=== PATIENT | female | born 1945 | race Caucasian/White ===

== ENCOUNTER 2016-06-10 12:45 | Inpatient (IN) | payer OTHER ==
--- NOTE | 2016-06-10 12:51 | PDOC ---
History of Present Illness - General Chief Complaint: Cold Symptoms Stated Complaint: COUGH Time Seen by Provider: 06/10/16 12:51 History Source: Patient, Old Records Exam Limitations: No Limitations - History of Present Illness Initial Comments: 06/10/16 13:04 70-year-old female with history of hypertension, chronic venous stasis/venous insufficiency, COPDwith hypoxia in the past but refusing home oxygen per prior EMR, CHF (EF 30-40% on echo documented last year) presents to the emergency department from Dr. Omalley's office with shortness of breath, cough and hypoxia into the mid 70s in his office. I was told by Dr. Omalley that the patient had diffuse expiratory wheezes and was given an albuterol nebulizer treatment and felt increasingly more weak and therefore he sent her to the emergency department for further evaluation. The patient denies chest pain. The patient states that she has no prior use of any steroids and refuses to take any steroids for COPD in the past. She is a smoker approximately 4 cigarettes daily. She denies fevers and chills at home. Her cough is productive with white sputum. Past History - Past Medical History Allergies/Adverse Reactions: Allergies Allergy/AdvReac Type Severity Reaction Status Date / Time Penicillins Allergy Verified 06/10/16 13:14 Antibiotics (CAN TAKE Z-PACK) Allergy Pt states Uncoded 06/10/16 13:14 is sensitive to many antibiotics but can take zpak Home Medications: Ambulatory Orders Docusate Sodium [Colace -] 100 mg PO BID PRN #60 capsule 07/10/15 Furosemide [Lasix -] 20 mg PO Q2D #30 tablet 07/10/15 Lisinopril [Prinivil] 5 mg PO DAILY #30 tablet 07/10/15 - Surgical History Appendectomy: Yes - Psycho/Social/Smoking Cessation Hx Anxiety: No Suicidal Ideation: No Smoking History: Former smoker Have you smoked in the past 12 months: No Number of Cigarettes Smoked Daily: 7 'Breaking Loose' booklet given: 01/28/15 Hx Alcohol Use: No Drug/Substance Use Hx: No Substance Use Type: None Hx Substance Use Treatment: No Review of Systems - Review of Systems Able to Perform ROS?: Yes Is the patient limited Japanese proficient: No Constitutional: No: Symptoms Reported HEENTM: No: Symptoms Reported Respiratory: Yes: See HPI Cardiac (ROS): No: Symptoms Reported ABD/GI: No: Symptoms Reported : No: Symptoms Reported Musculoskeletal: No: Symptoms Reported Integumentary: No: Symptoms Reported Neurological: No: Symptoms reported *Physical Exam - Physical Exam Comments: 06/10/16 13:05 GENERAL: Well developed, well nourished. Awake and alert. No acute distress. HEENT: Normocephalic, atraumatic. PERRLA, EOMI. No conjunctival pallor. Sclera are non- icteric. Moist mucous membranes. Oropharynx is clear. NECK: Supple. Full ROM. No JVD. No lymphadenopathy. CARDIOVASCULAR: Regular rate and rhythm. No murmurs, rubs, or gallops. Distal pulses are 2+ and symmetric. PULMONARY: There is mild respiratory distress. The patient is able to speak in full sentences. There is fair air movement in all lung arellano with expiratory wheezes diffusely. There are no rales or rhonchi appreciated on physical exam. ABDOMINAL: Soft. Non-tender. Non-distended. No rebound or guarding. No organomegaly. Normoactive bowel sounds. MUSCULOSKELETAL Normal range of motion at all joints. No bony deformities or tenderness. No CVA tenderness. EXTREMITIES: No cyanosis. No clubbing. There is hyperpigmentation to the bilateral lower extremities with +1 bipedal edema. SKIN: Warm and dry. Normal capillary refill. No rashes. No jaundice. NEUROLOGICAL: Alert, awake, appropriate. Cranial nerves 2-12 intact. Grossly non_focal exam> PSYCHIATRIC: Cooperative. Good eye contact. Appropriate mood and affect. ED Treatment Course - LABORATORY CBC & Chemistry Diagram: 06/10/16 14:08 06/10/16 14:08 Medical Decision Making - Medical Decision Making 06/10/16 13:07 70-year-old female with history of hypertension, COPD, CHF with shortness of breath, cough and hypoxia on room air. Differential diagnosis includes but is not limited to: Pneumonia, COPD exacerbation, CHF exacerbation, anemia, electrolyte abnormality, ACS, toxic/metabolic derangement. Plan: 1. EKG 2. Chest x-ray 3. Labs 4. DuoNeb treatment 5. Patient refuses steroids. I've discussed the importance of steroid to the treatment of her COPD exacerbation which she continues to refuse. 6. The patient will likely require admission for COPD exacerbation in the setting of hypoxia 7. Observe and reevaluate 06/10/16 16:12 Addendum: The case was discussed with Dr. Omalley, the primary care physician. The plan is to admit the patient for COPD exacerbation. The patient consented to prednisone 40 mg by mouth 1. *DC/Admit/Observation/Transfer Diagnosis at time of Disposition: Shortness of breath, Hypoxia, COPD exacerbation - Discharge Dispostion Condition at time of disposition: Stable Admit: Yes
[2016-06-10] MEDS ORDERED: IPRATROPIUM BR 0.02% 0.5 MG/2.5 ML VIAL.NEB. NEB ONE ×3 (12:52→15:49)
[2016-06-10] MEDS ORDERED: ALBUTEROL SO4 0.083% IH SOL 2.5 MG/3 ML VIAL.NEB. NEB ONE ×5 (12:52→15:49)
[2016-06-10 14:31] LABS: BASOPHIL 0.4 % (0-2.0); EOSINOPHIL 0.4 % (0-4.5); MCH 30.6 pg (25.7-33.7); MCHC 32.8 g/dl (32.0-36.0); MEAN CELL VOLUME 93.2 fl (80-96); NEUTROPHILS 76.1 % (42.8-82.8); PLATELET COUNT 166 K/MM3 (134-434); RDW 13.8 % (11.6-15.6); WHITE BLOOD COUNT 6.8 K/mm3 (4.0-10.0)
[2016-06-10] MEDS ORDERED: predniSONE 20 MG TABLET (UD) PO ONE (15:12)
[2016-06-10 15:23] LABS: CALCIUM 8.8 mg/dl (8.4-10.2); PHOSPHOROUS 2.8 mg/dl (2.5-4.6)
[2016-06-10 15:42] LABS: TROPONIN I (DFP) 0.1 ng/ml (0.03-0.50)
[2016-06-10 15:47] LABS: CK MB 4.2 ng/ml (0.3-4.0)
[2016-06-10] MEDS ORDERED: predniSONE 20 MG TABLET (UD) ONE (15:49)
[2016-06-10] MEDS ORDERED: DOCUSATE SODIUM 100 MG CAPSULE (FP) PO PRN (16:34)
[2016-06-10] MEDS ORDERED: ACETAMINOPHEN 325 MG TABLET (FP) PO PRN (16:36)
[2016-06-10] MEDS ORDERED: ONDANSETRON 4 MG/2 ML VIAL IVPB PRN (16:36)
[2016-06-10 17:54] VITALS: BMI 21.4
[2016-06-10 18:00] LABS: ALBUMIN 3.7 g/dl (3.5-5.0); BILIRUBIN,DIRECT 0.2 mg/dl (0.0-0.2); BILIRUBIN,TOTAL 0.9 mg/dl (0.2-1.0); TOT PROT 6.7 g/dl (6.4-8.3)
[2016-06-10] MEDS: ALBUTEROL SO4 2.5/IPRATROPIUM 0.5 INH SOL 3 ML VIAL.NEB. NEB SCH (18:06)
--- NOTE | 2016-06-10 18:48 | EKG ---
Test Reason : Blood Pressure : / mmHG Vent. Rate : 101 BPM Atrial Rate : 101 BPM P-R Int : 148 ms QRS Dur : 082 ms QT Int : 400 ms P-R-T Axes : 085 046 042 degrees QTc Int : 518 ms POOR DATA QUALITY, INTERPRETATION MAY BE ADVERSELY AFFECTED SINUS TACHYCARDIA WITH OCCASIONAL PREMATURE VENTRICULAR COMPLEXES NONSPECIFIC ST AND T WAVE ABNORMALITY ABNORMAL ECG NO PREVIOUS ECGS AVAILABLE Confirmed by IZABEL FRAUSTO, FELIPE ([id number]) on 06/10/2016 6:48:26 PM Referred By: NABILA Confirmed By:FELIPE PAIZ MD
[2016-06-10 21:50] LABS: TROPONIN I (DFP) 0.06 ng/ml (0.03-0.50)
--- NOTE | 2016-06-10 22:21 | HP ---
CHIEF COMPLAINT: SOB, cough, hypoxia PCP: [facility] HISTORY OF PRESENT ILLNESS: This is a 70 year old female with a past medical history of HTN, chronic venous stasis/insufficiency, CHF, COPD with hypoxia who was sent to the ED from her PMD office with SOB, cough and hypoxia into 70s in PCP office. States her cough started 2-3 days ago. Pt reports feeling a little better, less SOB, but still feels "crappy." Denies any CP, N/V/D. ER course was notable for: (1) BNP 2608 (2) Trop 0.10 Recent Travel: pt denies PAST MEDICAL HISTORY: HTN chronic venous stasis/insufficiency CHF COPD with hypoxia but refuses home oxygen as per ED note PAST SURGICAL HISTORY: appendectomy age 18 Social History: Smokin-5 cig/day, started smoking age 17, used to smoke 1+ PPD Alcohol: pt denies Drugs: pt denies Family History: mother age 94, cancer, unknown type father age 55, alcoholic cirrhosis Allergies Penicillins Allergy (Verified 06/10/16 13:14) Antibiotics (CAN TAKE Z-PACK) Allergy (Uncoded 06/10/16 13:14) Pt states is sensitive to many antibiotics but can take zpak HOME MEDICATIONS: 3 Medication Instructions Recorded Docusate Sodium [Colace -] 100 mg PO BID PRN #60 capsule 07/10/15 Furosemide [Lasix -] 20 mg PO Q2D #30 tablet 07/10/15 Lisinopril [Prinivil] 5 mg PO DAILY #30 tablet 07/10/15 REVIEW OF SYSTEMS CONSTITUTIONAL: Absent: fever, chills, diaphoresis, generalized weakness, malaise, loss of appetite, weight change HEENT: Present: sore throat Absent: rhinorrhea, nasal congestion, throat pain, throat swelling, difficulty swallowing, mouth swelling, ear pain, eye pain, visual changes CARDIOVASCULAR: Absent: chest pain, syncope, palpitations, irregular heart rate, lightheadedness , peripheral edema RESPIRATORY: Present: cough, shortness of breath Absent: dyspnea with exertion, orthopnea, wheezing, stridor, hemoptysis GASTROINTESTINAL: Absent: abdominal pain, abdominal distension, nausea, vomiting, diarrhea, constipation, melena, hematochezia GENITOURINARY: Absent: dysuria, frequency, urgency, hesitancy, hematuria, flank pain, genital pain MUSCULOSKELETAL: Absent: myalgia, arthralgia, joint swelling, back pain, neck pain SKIN: Absent: rash, itching, pallor HEMATOLOGIC/IMMUNOLOGIC: Absent: easy bleeding, easy bruising, lymphadenopathy, frequent infections ENDOCRINE: Absent: unexplained weight gain, unexplained weight loss, heat intolerance, cold intolerance NEUROLOGIC: Absent: headache, focal weakness or paresthesias, dizziness, unsteady gait, seizure, mental status changes, bladder or bowel incontinence PSYCHIATRIC: Absent: anxiety, depression, suicidal or homicidal ideation, hallucinations. PHYSICAL EXAMINATION Vital Signs - 24 hr 3 06/10/16 06/10/16 06/10/16 12:45 13:00 14:26 Temperature 98.2 F 98.2 F Pulse Rate 104 H Pulse Rate [ 91 H Right] Respiratory 20 19 Rate Blood Pressure 140/63 Blood Pressure 134/65 [Left Arm] O2 Sat by Pulse 90 L 90 L 91 L Oximetry (%) 3 06/10/16 06/10/16 06/10/16 15:53 16:43 19:02 Temperature 98.2 F 98.2 F 99.3 F Pulse Rate 95 H Pulse Rate [ 94 H Right] Respiratory 21 21 20 Rate Blood Pressure 140/53 Blood Pressure 136/71 [Left Arm] O2 Sat by Pulse 91 L 90 L Oximetry (%) GENERAL: Awake, alert, and fully oriented, in no acute distress. HEAD: Normal with no signs of trauma. EYES: Pupils equal, round and reactive to light, extraocular movements intact, sclera anicteric, conjunctiva clear. No lid lag. EARS, NOSE, THROAT: Ears normal, nares patent, oropharynx clear without exudates. Moist mucous membranes. NECK: Normal range of motion, supple without lymphadenopathy, JVD, or masses. LUNGS: Breath sounds diminished, aidee bases. No active wheezing. HEART: Regular rate and rhythm, normal S1 and S2 without murmur, rub or gallop. ABDOMEN: Soft, nontender, not distended, normoactive bowel sounds, no guarding, no rebound, no masses. No hepatomegaly or splenomegaly. MUSCULOSKELETAL: Normal range of motion at all joints. No bony deformities or tenderness. No CVA tenderness. UPPER EXTREMITIES: 2+ pulses, warm, well-perfused. No cyanosis. No clubbing. Cap refill <2 seconds. No peripheral edema. LOWER EXTREMITIES: 2+ pulses, warm, well-perfused. No calf tenderness. 1+ edema b/l LE, + hemosiderin staining 1/2 way up lower legs, no acute erythema NEUROLOGICAL: Cranial nerves II-XII intact. Normal speech. Normal gait. PSYCHIATRIC: Cooperative. Good eye contact. Appropriate mood and affect. SKIN: Warm, dry, normal turgor, no rashes or lesions noted. Laboratory Results - last 24 hr 3 06/10/16 06/10/16 06/10/16 14:08 14:08 14:08 WBC 6.8 RBC 4.71 Hgb 14.4 Hct 43.9 MCV 93.2 MCHC 32.8 RDW 13.8 Plt Count 166 D MPV 8.0 Neutrophils % 76.1 D Lymphocytes % 15.3 D Monocytes % 7.8 Eosinophils % 0.4 Basophils % 0.4 Sodium 135 L Potassium 3.8 Chloride 96 L Carbon Dioxide 33 H Anion Gap 6 L BUN 14 Creatinine 1.0 Creat Clearance w eGFR Random Glucose 96 Calcium 8.8 Phosphorus 2.8 Magnesium 2.0 Total Bilirubin Direct Bilirubin AST ALT Alkaline Phosphatase Creatine Kinase 153 H CK-MB (CK-2) 4.2 H Troponin I 0.10 B-Natriuretic Peptide 2608.56 H Total Protein Albumin 3 06/10/16 06/10/16 14:40 20:45 WBC RBC Hgb Hct MCV MCHC RDW Plt Count MPV Neutrophils % Lymphocytes % Monocytes % Eosinophils % Basophils % Sodium Cancelled Potassium Cancelled Chloride Cancelled Carbon Dioxide Cancelled Anion Gap Cancelled BUN Cancelled Creatinine Cancelled Creat Clearance w eGFR Cancelled Random Glucose Cancelled Calcium Cancelled Phosphorus Magnesium Total Bilirubin 0.9 D Direct Bilirubin 0.2 AST 37 D ALT 18 D Alkaline Phosphatase 85 Creatine Kinase 176 H CK-MB (CK-2) 4.5 H Troponin I 0.06 B-Natriuretic Peptide Total Protein 6.7 Albumin 3.7 CXR: NO evidence of pulmonary infiltrates, vascular congestion, pleural effusion or pneumothorax. ECG: sinus tach rate 101, poor baseline, non specific ST and T wave abnormality ASSESSMENT/PLAN: 70yF with PMH HTN, chronic venous stasis/insufficiency, CHF, COPD with hypoxia who presented with cough, SOB, hypoxia. She is being admitted for COPD exacerbation COPD exacerbation - cont solumedrol 40mg Q8H - cont duonebs. hold tudorza while on duoneb - if no improvement would start zpak HTN/CHF - cont home medications, BP stable. - initial troponin 0.1, repeat 0.06, no further trending required as no symptoms of ACS other than SOB which is explained by COPD Chronic venous stasis - cont lasix QOD FEN - tolerating po fluids - BMP in am - low sodium diet as tolerated Dispo: pt currently requires inpatient monitoring. Visit type - Emergency Visit Emergency Visit: Yes ED Registration Date: 06/10/16 Care time: The patient presented to the Emergency Department on the above date and was hospitalized for further evaluation of their emergent condition. - New Patient This patient is new to me today: Yes Date on this admission: 06/10/16 - Critical Care Critical Care patient: No
[2016-06-10 22:22] LABS: CK MB 4.5 ng/ml (0.3-4.0)
[2016-06-11] MEDS: methylPREDNISolone NA SUCC 40 MG/1 ML VIAL IVPB SCH ×3 (02:00→17:20)
[2016-06-11 05:31] LABS: CALCIUM 8.1 mg/dL (8.5-10.1); CREATININE 0.9 mg/dL (0.55-1.02)
[2016-06-11 05:32] LABS: TROPONIN I 0.05 ng/ml (0.00-0.05)
[2016-06-11] MEDS: ALBUTEROL SO4 2.5/IPRATROPIUM 0.5 INH SOL 3 ML VIAL.NEB. NEB SCH ×2 (05:39)
--- NOTE | 2016-06-11 07:58 | PN ---
Physical Exam: SUBJECTIVE: Patient seen and examined. patient reports feeling slightly improved. patient is agitated, states, "I'm tired of being in the hospital". OBJECTIVE: patient is a 70 year old female with a past medical history of HTN, chronic venous stasis/insufficiency, CHF, COPD with hypoxia. patient was admitted from the emergency department for COPD excerbation. Vital Signs Period Temp Pulse Resp BP Sys/Maldonado Pulse Ox Last 24 Hr 98.0 F-99.3 F 88-95 18-20 108-140/53-62 90-93 GENERAL: The patient is awake, alert, and fully oriented, in no acute distress. HEAD: Normal with no signs of trauma. EYES: PERRL, extraocular movements intact, sclera anicteric, conjunctiva clear. No ptosis. ENT: Ears normal, nares patent, oropharynx clear without exudates, moist mucous membranes. NECK: Trachea midline, full range of motion, supple. LUNGS: Breath sounds equal, clear to auscultation bilaterally to apexes, diminished to bases, no wheezes, no crackles, no accessory muscle use. HEART: Regular rate and rhythm, S1, S2 without murmur, rub or gallop. ABDOMEN: Soft, nontender, nondistended, normoactive bowel sounds, no guarding, no rebound, no hepatosplenomegaly, no masses. EXTREMITIES: 2+ pulses, warm, well-perfused, billateral venous stasis, +1 billateral lower extremity edema (chronic as per patient) . NEUROLOGICAL: Cranial nerves II through XII grossly intact. Normal speech, gait not observed. PSYCH: agitated, normal affect. SKIN: Warm, dry, normal turgor, no rashes or lesions noted Laboratory Results - last 24 hr 06/10/16 06/11/16 06/11/16 20:45 04:00 04:00 Sodium 141 Potassium 4.6 Chloride 104 Carbon Dioxide 28 Anion Gap 9 BUN 14 Creatinine 0.9 Random Glucose 134 H Calcium 8.1 L Creatine Kinase 176 H 163 Cancelled CK-MB (CK-2) 4.5 H 2.813 Troponin I 0.06 0.05 Cancelled CBC WBC 6.5 K/mm3 (4.0-10.0) 06/11/16 08:30 RBC 4.23 M/mm3 (3.60-5.2) 06/11/16 08:30 Hgb 12.9 GM/dl (10.7-15.3) D 06/11/16 08:30 Hct 40.0 % (32.4-45.2) 06/11/16 08:30 MCV 94.7 fl (80-96) 06/11/16 08:30 MCHC 32.3 g/dl (32.0-36.0) 06/11/16 08:30 RDW 13.7 % (11.6-15.6) 06/11/16 08:30 Plt Count 152 K/MM3 (134-434) 06/11/16 08:30 MPV 8.4 fl (7.5-11.1) 06/11/16 08:30 Neutrophils % 89.0 % (42.8-82.8) H 06/11/16 08:30 Lymphocytes % 7.0 % (8-40) L D 06/11/16 08:30 Monocytes % 2.0 % (3.8-10.2) L 06/11/16 08:30 Eosinophils % 0.4 % (0-4.5) 06/10/16 14:08 Basophils % 0.4 % (0-2.0) 06/10/16 14:08 Band Neutrophils 2.0 % (0-10) 06/11/16 08:30 Active Medications Generic Name Dose Route Start Last Admin Trade Name Freq PRN Reason Stop Dose Admin Acetaminophen 650 mg 06/10/16 16:36 Tylenol - PO Q4H PRN FEVER OR PAIN Albuterol/Ipratropium 1 amp 06/10/16 18:00 06/11/16 05:39 Duoneb - NEB 1 amp QIDR [facility] Administration Docusate Sodium 100 mg 06/10/16 16:34 Colace - PO Q12H PRN CONSTIPATION Furosemide 20 mg 06/12/16 10:00 Lasix - PO Q2D ROSE Lisinopril 5 mg 06/11/16 10:00 Prinivil PO DAILY [facility] Methylprednisolone Sodium Succinate 40 mg 06/10/16 18:00 06/11/16 02:00 Solu-Medrol - IVPB 40 mg Q8H-IV ROSE Administration Metoprolol Succinate 25 mg 06/11/16 10:00 Toprol Xl - PO DAILY [facility] Ondansetron HCl 4 mg 06/10/16 16:36 Zofran Injection IVPB Q6H PRN NAUSEA IMAGING CXR: NO evidence of pulmonary infiltrates, vascular congestion, pleural effusion or pneumothorax. ECG: sinus tach rate 101, poor baseline, non specific ST and T wave abnormality ASSESSMENT/PLAN: 1) pulm:COPD exacerbation - continue solumedrol 40mg q8h - start symbicort, continue tudorza and duonebs prn - start zithromax - pt declines CT scan of Chest, although her last CT scan was 06/22, pt advised since she is a daily cigarette smoker a CT scan of chest is recommended to rule out malignancy, patient adamantly still declines CT scan - pt decline supplemental Oxygen 2) card - pt has a pmh of diastolic and systolic congestive heart failure, patient is euvolemic on exam, will continue with Lasix home dose - troponin x 3 wnl - continue lisinopril FEN - tolerating po fluids - BMP in am - low sodium diet as tolerated Dispo: pt currently requires inpatient monitoring. Visit type - Emergency Visit Emergency Visit: Yes ED Registration Date: 06/10/16 Care time: The patient presented to the Emergency Department on the above date and was hospitalized for further evaluation of their emergent condition. - New Patient This patient is new to me today: Yes Date on this admission: 06/11/16 - Critical Care Critical Care patient: No - Discharge Referral Referred to [facility] Med P.C.: No
--- NOTE | 2016-06-11 07:59 | PN ---
Physical Exam: SUBJECTIVE: Patient seen and examined OBJECTIVE: Vital Signs Period Temp Pulse Resp BP Sys/Maldonado Pulse Ox Last 24 Hr 98.0 F-99.3 F 88-95 18-20 108-140/53-62 90-93 GENERAL: The patient is awake, alert, and fully oriented, in no acute distress. HEAD: Normal with no signs of trauma. EYES: PERRL, extraocular movements intact, sclera anicteric, conjunctiva clear. No ptosis. ENT: Ears normal, nares patent, oropharynx clear without exudates, moist mucous membranes. NECK: Trachea midline, full range of motion, supple. LUNGS: Breath sounds equal, clear to auscultation bilaterally, no wheezes, no crackles, no accessory muscle use. HEART: Regular rate and rhythm, S1, S2 without murmur, rub or gallop. ABDOMEN: Soft, nontender, nondistended, normoactive bowel sounds, no guarding, no rebound, no hepatosplenomegaly, no masses. EXTREMITIES: 2+ pulses, warm, well-perfused, no edema. NEUROLOGICAL: Cranial nerves II through XII grossly intact. Normal speech, gait not observed. PSYCH: Normal mood, normal affect. SKIN: Warm, dry, normal turgor, no rashes or lesions noted Laboratory Results - last 24 hr 06/10/16 06/11/16 06/11/16 20:45 04:00 04:00 Sodium 141 Potassium 4.6 Chloride 104 Carbon Dioxide 28 Anion Gap 9 BUN 14 Creatinine 0.9 Random Glucose 134 H Calcium 8.1 L Creatine Kinase 176 H 163 Cancelled CK-MB (CK-2) 4.5 H 2.813 Troponin I 0.06 0.05 Cancelled Active Medications Generic Name Dose Route Start Last Admin Trade Name Freq PRN Reason Stop Dose Admin Acetaminophen 650 mg 06/10/16 16:36 Tylenol - PO Q4H PRN FEVER OR PAIN Albuterol/Ipratropium 1 amp 06/10/16 18:00 06/11/16 05:39 Duoneb - NEB 1 amp QIDR [facility] Administration Docusate Sodium 100 mg 06/10/16 16:34 Colace - PO Q12H PRN CONSTIPATION Furosemide 20 mg 06/12/16 10:00 Lasix - PO Q2D [facility] Lisinopril 5 mg 06/11/16 10:00 Prinivil PO DAILY [facility] Methylprednisolone Sodium Succinate 40 mg 06/10/16 18:00 06/11/16 02:00 Solu-Medrol - IVPB 40 mg Q8H-IV ROSE Administration Metoprolol Succinate 25 mg 06/11/16 10:00 Toprol Xl - PO DAILY [facility] Ondansetron HCl 4 mg 06/10/16 16:36 Zofran Injection IVPB Q6H PRN NAUSEA ASSESSMENT/PLAN:
[2016-06-11 09:02] LABS: MCH 30.6 pg (25.7-33.7); MCHC 32.3 g/dl (32.0-36.0); MEAN CELL VOLUME 94.7 fl (80-96); MEAN PLT VOLUME 8.4 fl (7.5-11.1); PLATELET COUNT 152 K/MM3 (134-434); RDW 13.7 % (11.6-15.6); WHITE BLOOD COUNT 6.5 K/mm3 (4.0-10.0)
[2016-06-11] MEDS: LISINOPRIL 5 MG TABLET (FP) PO SCH (09:30)
[2016-06-11] MEDS: METOPROLOL SUCCINATE 25 MG TAB.SR.24H (FP) PO SCH (09:30)
--- NOTE | 2016-06-11 11:44 | PN ---
Progress Note (short form) - Note Progress Note: PULMONARY CONSULTATION DICTATED 06/11/16 IMP ACUTE ON CHRONIC HYPOXEMIC RESPIRATORY FAILURE COPD EXACERBATION LV DYSFUNCTION HTN SMOKER PLAN IV STEROIDS INHALED BRONCHODILATORS SUPPLEMENTAL O2 ANTIBIOTICS CHEST CT PFTS OUTPATIENT DR LEMON Problem List - Problems (1) COPD exacerbation Code(s): J44.1 - CHRONIC OBSTRUCTIVE PULMONARY DISEASE W (ACUTE) EXACERBATION (2) Hypoxia Code(s): R09.02 - HYPOXEMIA (3) Shortness of breath Code(s): R06.02 - SHORTNESS OF BREATH (4) Edema Code(s): R60.9 - EDEMA, UNSPECIFIED (5) Lower extremity edema Code(s): R60.0 - LOCALIZED EDEMA Qualifiers: Laterality: bilateral Qualified Code(s): R60.0 - Localized edema (6) Acute on chronic respiratory failure with hypoxemia Code(s): J96.21 - ACUTE AND CHRONIC RESPIRATORY FAILURE WITH HYPOXIA (7) Congestive heart failure Code(s): I50.9 - HEART FAILURE, UNSPECIFIED (8) Tobacco abuse Code(s): Z72.0 - TOBACCO USE (9) Tobacco abuse counseling Code(s): Z71.6 - TOBACCO ABUSE COUNSELING
[2016-06-11] MEDS ORDERED: AZITHROMYCIN IVPB 250 ML IVPB ONE (12:15)
[2016-06-11] MEDS ORDERED: ZOLPIDEM TARTRATE 5 MG TABLET PO PRN (12:29)
[2016-06-11] MEDS: ACLIDINIUM BROMIDE 400 MCG/INH AERO.POWD IH SCH ×2 (13:00→21:59)
[2016-06-11] MEDS: ALBUTEROL SO4 2.5/IPRATROPIUM 0.5 INH SOL 3 ML VIAL.NEB. NEB PRN (13:00)
[2016-06-11] MEDS: BUDESONIDE/FORMETEROL FUMARATE 160/4.5 mcg INHALER IH SCH ×2 (13:00→21:59)
[2016-06-11 13:44] LABS: MAGNESIUM 2.1 mg/dL (1.8-2.4)
[2016-06-11 13:54] LABS: PH,URINE 5.5 (4.5-8); URINE APPEARANCE Clear; URINE BILIRUBIN Negative (NEGATIVE); URINE GLUCOSE (UA) Negative (NEGATIVE); URINE KETONE Negative (NEGATIVE); URINE LEUK ESTERASE Negative (NEGATIVE); URINE NITRITE Negative (NEGATIVE); URINE PROTEIN Negative (NEGATIVE); URINE UROBILINOGEN 0.2 E.U/dl (0.2-1.0)
[2016-06-11 14:05] LABS: URINE BLOOD TRACE (NEGATIVE); URINE COLOR YELLOW
[2016-06-11] MEDS ORDERED: PT OWN MED DRAWER 7, Y5N ONE ×3 (14:46→21:20)
[2016-06-11] MEDS: NICOTINE 14 MG/24 HOURS TOPICAL PATCH TD SCH (14:51)
--- NOTE | 2016-06-11 14:55 | CONS ---
PULMONARY CONSULTATION DATE OF CONSULTATION: 06/11/2016 REFERRING PHYSICIAN: Frida Howard NP HISTORY OF PRESENT ILLNESS: The patient is a 70-year-old white female with a past medical history of advanced COPD with chronic hypoxia and refusing home O2, a longstanding history of tobacco use currently still smoking, hypertension, chronic venous stasis, venous insufficiency, congestive heart failure with an ejection fraction of 30% to 40% on echo, admitted to [facility] with hypoxemia. For the past few days or so, the patient had apparently started noticing increasing shortness of breath, cough and chest congestion. She went to 's office and was noted in the office to have an O2 saturation in the mid-70s. At that time, she was advised to go to the emergency room. In the ER, she was noted to have diffuse bilateral wheezing and shortness of breath. She was started on inhaled bronchodilators and IV steroids with clinical improvement and transferred out to the medical floor for further management. She denies any fevers, weight loss, night sweats, nausea or hemoptysis. She denies any chest pain or palpitations. She denies any history of occupational exposure to chemicals or fumes. As noted earlier, she has a history of chronic hypoxemia and has refused supplemental O2. PAST MEDICAL HISTORY: Advanced COPD, hypertension, chronic venous stasis, venous insufficiency, CHF, left ventricular dysfunction. REVIEW OF SYSTEMS: Positive for shortness of breath, positive cough. No sputum. No fever. No chills. No hemoptysis. Positive for wheezing. Positive for lower extremity edema. MEDICATIONS PRIOR TO ADMISSION: Colace, Lasix and Prinivil. PHYSICAL EXAMINATION: General: The patient is a well-developed, well-nourished female, awake and alert, mildly dyspneic but in no acute distress. Vital Signs: O2 saturation is 88% on room air at rest. Respiratory rate is 18, blood pressure is 108/62, temperature is 98 and heart rate is 90. HEENT: Head is normocephalic, atraumatic. Neck: Supple. Heart: Regular. Normal S1, S2. Chest: Scattered bilateral wheezes. Abdomen: Soft. Bowel sounds positive. Extremities: Bilateral lower extremity edema. LABORATORY DATA: BUN is 14, creatinine 0.9. WBC is 6.5, hemoglobin 12.9, hematocrit 40, platelet count of 152,000. BNP is slightly elevated at 2608. Chest x-ray reveals no infiltrates and no effusions. IMPRESSION: 1. [id number] hypoxemic respiratory failure secondary to decompensated chronic obstructive pulmonary disease. 2. history of congestive heart failure. 3. Hypertension. PLAN: 1. IV steroids, inhaled bronchodilators, antibiotic therapy, supplemental O2. 2. Obtain echocardiogram if one has not been done already. 3. Pulmonary function tests as an outpatient. 4. Low-dose CAT scan since the patient has a longstanding history of tobacco abuse; rule out underlying malignancy and underlying pulmonary nodules as well as possible underlying pneumonia. JEAN-PAUL LEMON M.D. [id number] MTDD
[2016-06-11] MEDS: MINERAL OIL/PETROLAT/WATER TOPICAL CREAM 113 GM JAR TP SCH ×2 (16:00→22:00)
[2016-06-12] MEDS: methylPREDNISolone NA SUCC 40 MG/1 ML VIAL IVPB SCH ×4 (01:34→18:33)
[2016-06-12 08:16] LABS: BASOPHIL 0.2 % (0-2.0); MCH 30.8 pg (25.7-33.7); MCHC 32.5 g/dl (32.0-36.0); MEAN CELL VOLUME 94.8 fl (80-96); MEAN PLT VOLUME 8.5 fl (7.5-11.1); NEUTROPHILS 90.9 % (42.8-82.8); PLATELET COUNT 176 K/MM3 (134-434); RDW 13.5 % (11.6-15.6); WHITE BLOOD COUNT 12.5 K/mm3 (4.0-10.0)
[2016-06-12 08:33] LABS: ALBUMIN 3.4 g/dl (3.5-5.0); BILIRUBIN,TOTAL 0.7 mg/dl (0.2-1.0); CALCIUM 9.1 mg/dl (8.4-10.2); MAGNESIUM 2.1 mg/dL (1.8-2.4); TOT PROT 6.1 g/dl (6.4-8.3)
[2016-06-12] MEDS ORDERED: PT OWN MED DRAWER 7, Y5N ONE ×2 (09:22→20:57)
[2016-06-12] MEDS: MINERAL OIL/PETROLAT/WATER TOPICAL CREAM 113 GM JAR TP SCH ×2 (09:44→21:52)
[2016-06-12] MEDS: FUROSEMIDE 20 MG TABLET (FP) PO SCH (09:44)
[2016-06-12] MEDS: NICOTINE 14 MG/24 HOURS TOPICAL PATCH TD SCH (09:44)
[2016-06-12] MEDS: LISINOPRIL 5 MG TABLET (FP) PO SCH (09:44)
[2016-06-12] MEDS: BUDESONIDE/FORMETEROL FUMARATE 160/4.5 mcg INHALER IH SCH ×2 (09:45→21:51)
[2016-06-12] MEDS: METOPROLOL SUCCINATE 25 MG TAB.SR.24H (FP) PO SCH (09:45)
[2016-06-12] MEDS: ACLIDINIUM BROMIDE 400 MCG/INH AERO.POWD IH SCH ×2 (09:45→21:49)
[2016-06-12] MEDS: AZITHROMYCIN IVPB 250 MG in DEXTROSE 5%-WATER - 250 ML IVPB SCH (09:45)
--- NOTE | 2016-06-12 10:28 | PN ---
Progress Note, Physician History of Present Illness: PULMONARY ALERT,LESS DYSPNEIC,BUT STILL NOT FEELING WELL - Current Medication List Current Medications: Active Medications Acetaminophen (Tylenol -) 650 mg PO Q4H PRN PRN Reason: FEVER OR PAIN Aclidinium [place] (Tudorza -) 1 puff IH BID [facility] Last Admin: 06/12/16 09:45 Dose: 1 puff Albuterol/Ipratropium (Duoneb -) 1 amp NEB QIDR PRN PRN Reason: COUGH Last Admin: 06/11/16 13:00 Dose: 1 amp Budesonide/Formoterol Fumarate (Symbicort 160/4.5mcg -) 2 puff IH BID [facility] Last Admin: 06/12/16 09:45 Dose: 2 puff Docusate Sodium (Colace -) 100 mg PO Q12H PRN PRN Reason: CONSTIPATION Furosemide (Lasix -) 20 mg PO Q2D [facility] Last Admin: 06/12/16 09:44 Dose: 20 mg Azithromycin 250 mg/ Dextrose 250 mls @ 250 mls/hr IVPB DAILY [facility] Stop: 06/15/16 10:00 Last Admin: 06/12/16 09:45 Dose: 250 mls/hr Lisinopril (Prinivil) 5 mg PO DAILY [facility] Last Admin: 06/12/16 09:44 Dose: 5 mg Methylprednisolone Sodium Succinate (Solu-Medrol -) 40 mg IVPB Q8H-IV [facility] Last Admin: 06/12/16 09:44 Dose: 40 mg Metoprolol Succinate (Toprol Xl -) 25 mg PO DAILY [facility] Last Admin: 06/12/16 09:45 Dose: 25 mg Multi-Ingredient Lotion (Eucerin (Small Jar) -) 1 applic TP BID [facility] Last Admin: 06/12/16 09:44 Dose: 1 applic Nicotine (Nicoderm Patch -) 14 mg TD DAILY [facility] Last Admin: 06/12/16 09:44 Dose: 14 mg Ondansetron HCl (Zofran Injection) 4 mg IVPB Q6H PRN PRN Reason: NAUSEA Zolpidem Tartrate (Ambien -) 5 mg PO HS PRN PRN Reason: INSOMNIA - Objective Vital Signs: Vital Signs Temperature 98 F 06/12/16 08:27 Pulse Rate 95 H 06/12/16 08:27 Respiratory Rate 18 06/12/16 08:28 Blood Pressure 169/84 06/12/16 08:27 O2 Sat by Pulse Oximetry (%) 93 L 06/12/16 08:28 Constitutional: Yes: Well Nourished, Calm Eyes: Yes: WNL HENT: Yes: WNL Neck: Yes: WNL Cardiovascular: Yes: Regular Rate and Rhythm, S1, S2 Respiratory: Yes: Rales, Wheezes (FEW CRACKLES AND WHEEZES) Gastrointestinal: Yes: Normal Bowel Sounds, Soft Extremities: Yes: WNL Edema: No Labs: CBC, BMP 06/12/16 07:00 06/12/16 07:00 Problem List - Problems (1) COPD exacerbation Code(s): J44.1 - CHRONIC OBSTRUCTIVE PULMONARY DISEASE W (ACUTE) EXACERBATION (2) Hypoxia Code(s): R09.02 - HYPOXEMIA (3) Shortness of breath Code(s): R06.02 - SHORTNESS OF BREATH (4) Edema Code(s): R60.9 - EDEMA, UNSPECIFIED (5) Lower extremity edema Code(s): R60.0 - LOCALIZED EDEMA Qualifiers: Laterality: bilateral Qualified Code(s): R60.0 - Localized edema (6) Acute on chronic respiratory failure with hypoxemia Code(s): J96.21 - ACUTE AND CHRONIC RESPIRATORY FAILURE WITH HYPOXIA (7) Congestive heart failure Code(s): I50.9 - HEART FAILURE, UNSPECIFIED (8) Tobacco abuse Code(s): Z72.0 - TOBACCO USE (9) Tobacco abuse counseling Code(s): Z71.6 - TOBACCO ABUSE COUNSELING Assessment/Plan IMP ACUTE ON CHRONIC HYPOXEMIC RESPIRATORY FAILURE COPD EXACERBATION LV DYSFUNCTION HTN SMOKER PLAN CONTINUE IV STEROIDS INHALED BRONCHODILATORS SUPPLEMENTAL O2 ANTIBIOTICS CHEST CT PFTS OUTPATIENT DR LEMON Problem List - Problems (1) COPD exacerbation Code(s): J44.1 - CHRONIC OBSTRUCTIVE PULMONARY DISEASE W (ACUTE) EXACERBATION (2) Hypoxia Code(s): R09.02 - HYPOXEMIA (3) Shortness of breath Code(s): R06.02 - SHORTNESS OF BREATH (4) Edema Code(s): R60.9 - EDEMA, UNSPECIFIED (5) Lower extremity edema Code(s): R60.0 - LOCALIZED EDEMA Qualifiers: Laterality: bilateral Qualified Code(s): R60.0 - Localized edema (6) Acute on chronic respiratory failure with hypoxemia Code(s): J96.21 - ACUTE AND CHRONIC RESPIRATORY FAILURE WITH HYPOXIA (7) Congestive heart failure Code(s): I50.9 - HEART FAILURE, UNSPECIFIED (8) Tobacco abuse Code(s): Z72.0 - TOBACCO USE (9) Tobacco abuse counseling Code(s): Z71.6 - TOBACCO ABUSE COUNSELING
--- NOTE | 2016-06-12 14:33 | PN ---
Physical Exam: SUBJECTIVE: Patient seen and examined, patient reports feeling the same, does reports less cough, pt denies any chest pain. OBJECTIVE: patient is a 70 year old female with a past medical history of HTN, chronic venous stasis/insufficiency, CHF, COPD with hypoxia. patient was admitted from the emergency department for COPD excerbation. Vital Signs Period Temp Pulse Resp BP Sys/[place] Pulse Ox Last 24 Hr 98 F-98.3 F 69-102 18-20 123-169/52-84 90-93 GENERAL: The patient is awake, alert, and fully oriented, in no acute distress. HEAD: Normal with no signs of trauma. EYES: PERRL, extraocular movements intact, sclera anicteric, conjunctiva clear. No ptosis. ENT: Ears normal, nares patent, oropharynx clear without exudates, moist mucous membranes. NECK: Trachea midline, full range of motion, supple. LUNGS: Breath sounds equal, clear to auscultation bilaterally to apexes, diminished to bases, no wheezes, no crackles, no accessory muscle use, moist cough noted HEART: Regular rate and rhythm, S1, S2 without murmur, rub or gallop. ABDOMEN: Soft, nontender, nondistended, normoactive bowel sounds, no guarding, no rebound, no hepatosplenomegaly, no masses. EXTREMITIES: 2+ pulses, warm, well-perfused, billateral venous stasis, +1 billateral lower extremity edema (chronic as per patient) . NEUROLOGICAL: Cranial nerves II through XII grossly intact. Normal speech, gait not observed. PSYCH: calm, normal affect. SKIN: Warm, dry, normal turgor, no rashes or lesions noted Laboratory Results - last 24 hr 06/12/16 06/12/16 07:00 07:00 WBC 12.5 H D RBC 4.48 Hgb 13.8 Hct 42.4 MCV 94.8 MCHC 32.5 RDW 13.5 Plt Count 176 MPV 8.5 Neutrophils % 90.9 H Lymphocytes % 6.5 L Monocytes % 2.4 L Eosinophils % 0.0 D Basophils % 0.2 Sodium 137 Potassium 4.7 D Chloride 102 Carbon Dioxide 31 H Anion Gap 4 L BUN 18 D Creatinine 1.0 Creat Clearance w eGFR 55.14 Random Glucose 128 H D Calcium 9.1 Magnesium 2.1 Total Bilirubin 0.7 D AST 40 ALT 18 Alkaline Phosphatase 70 Total Protein 6.1 L Albumin 3.4 L Active Medications Generic Name Dose Route Start Last Admin Trade Name Freq PRN Reason Stop Dose Admin Acetaminophen 650 mg 06/10/16 16:36 Tylenol - PO Q4H PRN FEVER OR PAIN Aclidinium [place] 1 puff 06/11/16 12:00 06/12/16 09:45 Tudorza - IH 1 puff BID [facility] Administration Albuterol/Ipratropium 1 amp 06/11/16 12:51 06/11/16 13:00 Duoneb - NEB 1 amp QIDR PRN Administration COUGH Budesonide/Formoterol Fumarate 2 puff 06/11/16 12:00 06/12/16 09:45 Symbicort 160/4.5mcg - IH 2 puff BID [facility] Administration Docusate Sodium 100 mg 06/10/16 16:34 Colace - PO Q12H PRN CONSTIPATION Furosemide 20 mg 06/12/16 10:00 06/12/16 09:44 Lasix - PO 20 mg Q2D [facility] Administration Azithromycin 250 mg/ Dextrose 250 mls @ 250 mls/hr 06/12/16 10:00 06/12/16 09: 45 IVPB 06/15/16 10:00 250 mls/hr DAILY [facility] Administration Lisinopril 5 mg 06/11/16 10:00 06/12/16 09:44 Prinivil PO 5 mg DAILY [facility] Administration Methylprednisolone Sodium Succinate 40 mg 06/10/16 18:00 06/12/16 09:44 Solu-Medrol - IVPB 40 mg Q8H-IV [facility] Administration Metoprolol Succinate 25 mg 06/11/16 10:00 06/12/16 09:45 Toprol Xl - PO 25 mg DAILY [facility] Administration Multi-Ingredient Lotion 1 applic 06/11/16 13:00 06/12/16 09:44 Eucerin (Small Jar) - TP 1 applic BID [facility] Administration Nicotine 14 mg 06/11/16 12:15 06/12/16 09:44 Nicoderm Patch - TD 14 mg DAILY [facility] Administration Ondansetron HCl 4 mg 06/10/16 16:36 Zofran Injection IVPB Q6H PRN NAUSEA Zolpidem Tartrate 5 mg 06/11/16 12:29 Ambien - PO HS PRN INSOMNIA IMAGING CXR: NO evidence of pulmonary infiltrates, vascular congestion, pleural effusion or pneumothorax. ECG: sinus tach rate 101, poor baseline, non specific ST and T wave abnormality ASSESSMENT/PLAN: 1) pulm:COPD exacerbation - continue solumedrol 40mg q8h - start symbicort, continue tudorza and duonebs prn - continue zithromax - pt declines CT scan of Chest, although her last CT scan was 06/22, pt advised since she is a daily cigarette smoker a CT scan of chest is recommended to rule out malignancy, patient adamantly still declines CT scan - pt declines supplemental Oxygen 2) card - pt has a pmh of diastolic and systolic congestive heart failure, patient remains euvolemic on exam, will continue with Lasix home dose - continue lisinopril and toprol FEN - tolerating po fluids - BMP in am - low sodium diet as tolerated Dispo: pt currently requires inpatient monitoring. Visit type - Emergency Visit Emergency Visit: Yes ED Registration Date: 06/10/16 Care time: The patient presented to the Emergency Department on the above date and was hospitalized for further evaluation of their emergent condition. - New Patient This patient is new to me today: No - Critical Care Critical Care patient: No - Discharge Referral Referred to [facility] Med P.C.: Yes Physician Referral: Sohail Thomas MD (Int Med)
[2016-06-13] MEDS: methylPREDNISolone NA SUCC 40 MG/1 ML VIAL IVPB SCH ×4 (01:23→21:19)
[2016-06-13] MEDS: ALBUTEROL SO4 2.5/IPRATROPIUM 0.5 INH SOL 3 ML VIAL.NEB. NEB PRN (06:00)
[2016-06-13 08:05] LABS: CALCIUM 9.3 mg/dl (8.4-10.2)
[2016-06-13 08:11] LABS: MCH 30.8 pg (25.7-33.7); MCHC 32.5 g/dl (32.0-36.0); MEAN PLT VOLUME 8.7 fl (7.5-11.1); PLATELET COUNT 193 K/MM3 (134-434)
[2016-06-13 09:17] LABS: PLATELET ESTIMATE NORMAL (NORMAL)
[2016-06-13] MEDS ORDERED: PT OWN MED DRAWER 7, Y5N ONE ×2 (09:17→21:13)
[2016-06-13] MEDS: ACLIDINIUM BROMIDE 400 MCG/INH AERO.POWD IH SCH ×2 (09:31→21:18)
[2016-06-13] MEDS: METOPROLOL SUCCINATE 25 MG TAB.SR.24H (FP) PO SCH (09:31)
[2016-06-13] MEDS: LISINOPRIL 5 MG TABLET (FP) PO SCH (09:31)
[2016-06-13] MEDS: BUDESONIDE/FORMETEROL FUMARATE 160/4.5 mcg INHALER IH SCH ×2 (09:32→21:19)
[2016-06-13] MEDS: MINERAL OIL/PETROLAT/WATER TOPICAL CREAM 113 GM JAR TP SCH ×2 (09:32→21:19)
[2016-06-13] MEDS: NICOTINE 14 MG/24 HOURS TOPICAL PATCH TD SCH (09:32)
[2016-06-13] MEDS ORDERED: REFRIGERATED ANITBIOTICS ONE (09:37)
[2016-06-13] MEDS: AZITHROMYCIN IVPB 250 MG in DEXTROSE 5%-WATER - 250 ML IVPB SCH (09:46)
--- NOTE | 2016-06-13 10:35 | PN ---
Physical Exam: SUBJECTIVE: Patient seen and examined. Refused one dose of IV steroids yesterday at 6pm, but took 2am and 10am doses today. Refuses oxygen. Recommended to have CT chest but pt declined, saying she is not up to it. but daughter came in later and convinced mother to have CT. Same ordered. States she isn't feeling any better, still feeling lousy. States her breathing is the same. OBJECTIVE: Vital Signs - 24 hr 3 06/12/16 06/12/16 06/12/16 15:11 15:12 20:23 Temperature 98 F Pulse Rate 94 H 95 H Respiratory 18 18 Rate Blood Pressure 141/79 O2 Sat by Pulse 92 L 92 L Oximetry (%) 3 06/12/16 06/13/16 06/13/16 22:10 04:00 06:44 Temperature 98.6 F 98.0 F Pulse Rate 87 71 Respiratory 16 18 Rate Blood Pressure 173/80 148/67 O2 Sat by Pulse 90 L 88 L Oximetry (%) GENERAL: The patient is awake, alert, and fully oriented, in no acute distress. HEAD: Normal with no signs of trauma. EYES: PERRL, extraocular movements intact, sclera anicteric, conjunctiva clear. No ptosis. ENT: Ears normal, nares patent, oropharynx clear without exudates, moist mucous membranes. NECK: Trachea midline, full range of motion, supple. LUNGS: scattered expiratory wheeze and diminished BS lower lung arellano. Clear upper. no rhonchi HEART: Regular rate and rhythm, S1, S2 without murmur, rub or gallop. ABDOMEN: Soft, nontender, nondistended, normoactive bowel sounds, no guarding, no rebound, no hepatosplenomegaly, no masses. EXTREMITIES: 2+ pulses, warm, well-perfused, no edema. NEUROLOGICAL: Cranial nerves II through XII grossly intact. Normal speech, gait not observed. PSYCH: Normal mood, normal affect. SKIN: Warm, dry, normal turgor, no rashes or lesions noted Laboratory Results - last 24 hr 3 06/13/16 06/13/16 07:00 07:00 WBC 12.0 H RBC 4.75 Hgb 14.6 Hct 45.1 MCV 95.0 MCHC 32.5 RDW 14.0 Plt Count 193 MPV 8.7 Neutrophils % 89.0 H Lymphocytes % 7.0 L Monocytes % 2.0 L Band Neutrophils 2.0 Platelet Estimate Normal Sodium 138 Potassium 4.2 Chloride 99 Carbon Dioxide 33 H Anion Gap 6 L BUN 25 H D Creatinine 1.0 Random Glucose 115 H Calcium 9.3 Active Medications 3 Generic Name Dose Route Start Last Admin Trade Name Freq PRN Reason Stop Dose Admin Acetaminophen 650 mg 06/10/16 16:36 Tylenol - PO Q4H PRN FEVER OR PAIN Aclidinium [place] 1 puff 06/11/16 12:00 06/13/16 09:31 Tudorza - IH 1 puff BID [facility] Administration Albuterol/Ipratropium 1 amp 06/11/16 12:51 06/13/16 06:00 Duoneb - NEB 1 amp QIDR PRN Administration COUGH Budesonide/Formoterol Fumarate 2 puff 06/11/16 12:00 06/13/16 09:32 Symbicort 160/4.5mcg - IH Not Given BID [facility] Docusate Sodium 100 mg 06/10/16 16:34 Colace - PO Q12H PRN CONSTIPATION Furosemide 20 mg 06/12/16 10:00 06/12/16 09:44 Lasix - PO 20 mg Q2D [facility] Administration Azithromycin 250 mg/ Dextrose 250 mls @ 250 mls/hr 06/12/16 10:00 06/13/16 09: 46 IVPB 06/15/16 10:00 250 mls/hr DAILY [facility] Administration Lisinopril 5 mg 06/11/16 10:00 06/13/16 09:31 Prinivil PO 5 mg DAILY [facility] Administration Methylprednisolone Sodium Succinate 40 mg 06/10/16 18:00 06/13/16 09:33 Solu-Medrol - IVPB 40 mg Q8H-IV [facility] Administration Metoprolol Succinate 25 mg 06/11/16 10:00 06/13/16 09:31 Toprol Xl - PO 25 mg DAILY [facility] Administration Multi-Ingredient Lotion 1 applic 06/11/16 13:00 06/13/16 09:32 Eucerin (Small Jar) - TP 1 applic BID [facility] Administration Nicotine 14 mg 06/11/16 12:15 06/13/16 09:32 Nicoderm Patch - TD Not Given DAILY [facility] Ondansetron HCl 4 mg 06/10/16 16:36 Zofran Injection IVPB Q6H PRN NAUSEA Zolpidem Tartrate 5 mg 06/11/16 12:29 Ambien - PO HS PRN INSOMNIA ASSESSMENT/PLAN: 70yF with PMH HTN, chronic venous stasis/insufficiency, cellulitis, CHF, COPD with hypoxia who presented with cough, SOB, hypoxia. She has been admitted for COPD exacerbation. COPD exacerbation - ok to decrease solumedrol to q12h as wheezing improved - cont duonebs. hold tudorza while on duoneb - cont zithromax - agrees to CT of chest - declining oxygen HTN/CHF - cont home medications, BP stable, euvolemic Chronic venous stasis - cont lasix QOD FEN - tolerating po fluids - BMP in am - low sodium diet as tolerated Dispo: pt currently requires inpatient monitoring. Visit type - Emergency Visit Emergency Visit: Yes ED Registration Date: 06/10/16 Care time: The patient presented to the Emergency Department on the above date and was hospitalized for further evaluation of their emergent condition. - New Patient This patient is new to me today: No - Critical Care Critical Care patient: No
[2016-06-14 07:08] LABS: BASOPHIL 0.1 % (0-2.0); MCH 31.2 pg (25.7-33.7); MCHC 32.6 g/dl (32.0-36.0); MEAN CELL VOLUME 95.8 fl (80-96); MEAN PLT VOLUME 8.9 fl (7.5-11.1); NEUTROPHILS 87.7 % (42.8-82.8); PLATELET COUNT 205 K/MM3 (134-434); RDW 14.4 % (11.6-15.6); WHITE BLOOD COUNT 11.3 K/mm3 (4.0-10.0)
[2016-06-14 07:36] LABS: CALCIUM 8.7 mg/dL (8.5-10.1)
[2016-06-14] MEDS ORDERED: PT OWN MED DRAWER 7, Y5N ONE ×2 (09:38→22:05)
[2016-06-14] MEDS: BUDESONIDE/FORMETEROL FUMARATE 160/4.5 mcg INHALER IH SCH ×2 (09:49→22:10)
[2016-06-14] MEDS: ACLIDINIUM BROMIDE 400 MCG/INH AERO.POWD IH SCH ×2 (09:49→22:10)
[2016-06-14] MEDS: FUROSEMIDE 20 MG TABLET (FP) PO SCH (09:54)
[2016-06-14] MEDS: LISINOPRIL 5 MG TABLET (FP) PO SCH (09:54)
[2016-06-14] MEDS: AZITHROMYCIN IVPB 250 MG in DEXTROSE 5%-WATER - 250 ML IVPB SCH (10:00)
[2016-06-14] MEDS: methylPREDNISolone NA SUCC 40 MG/1 ML VIAL IVPB SCH ×2 (10:01→22:10)
[2016-06-14] MEDS: MINERAL OIL/PETROLAT/WATER TOPICAL CREAM 113 GM JAR TP SCH ×2 (10:01→22:10)
[2016-06-14] MEDS: METOPROLOL SUCCINATE 25 MG TAB.SR.24H (FP) PO SCH (10:01)
[2016-06-14] MEDS: NICOTINE 14 MG/24 HOURS TOPICAL PATCH TD SCH (10:01)
--- NOTE | 2016-06-14 12:49 | PN ---
Physical Exam: SUBJECTIVE: Patient seen and examined at bedside. Pt reports congested cough,denies cp, sob,palpitations,fever,chills, abdominal pain, N/V/D,urinary symptoms. OBJECTIVE: Vital Signs Period Temp Pulse Resp BP Sys/[place] Pulse Ox Last 24 Hr 97.9 F-98.5 F 63-69 18-20 141-163/60-78 89-94 GENERAL: The patient is awake, alert, and fully oriented, in no acute distress. HEAD: Normal with no signs of trauma. EYES: PERRL, extraocular movements intact, sclera anicteric, conjunctiva clear. No ptosis. ENT: Ears normal, nares patent, oropharynx clear without exudates, moist mucous membranes. NECK: Trachea midline, full range of motion, supple. LUNGS: [place], and exp wheeze.no crackles, no accessory muscle use. HEART: Regular rate and rhythm, S1, S2 without murmur, rub or gallop. ABDOMEN: Soft, nontender, nondistended, normoactive bowel sounds, no guarding, no rebound, no hepatosplenomegaly, no masses. EXTREMITIES: 2+ pulses, warm, well-perfused, no edema. NEUROLOGICAL: Cranial nerves II through XII grossly intact. Normal speech, gait not observed. PSYCH: Normal mood, normal affect. SKIN: Warm, dry, normal turgor, no rashes or lesions noted Laboratory Results - last 24 hr 06/14/16 06/14/16 06:00 06:00 WBC 11.3 H RBC 4.53 Hgb 14.1 Hct 43.4 MCV 95.8 MCHC 32.6 RDW 14.4 Plt Count 205 MPV 8.9 Neutrophils % 87.7 H Lymphocytes % 8.5 Monocytes % 3.7 L Eosinophils % 0.0 Basophils % 0.1 Sodium 143 Potassium 4.5 Chloride 104 Carbon Dioxide 32 Anion Gap 7 L BUN 25 H D Creatinine 1.0 Random Glucose 135 H Calcium 8.7 Active Medications Generic Name Dose Route Start Last Admin Trade Name Freq PRN Reason Stop Dose Admin Acetaminophen 650 mg 06/10/16 16:36 Tylenol - PO Q4H PRN FEVER OR PAIN Aclidinium [place] 1 puff 06/11/16 12:00 06/14/16 09:49 Tudorza - IH 1 puff BID [facility] Administration Albuterol/Ipratropium 1 amp 06/11/16 12:51 06/13/16 06:00 Duoneb - NEB 1 amp QIDR PRN Administration COUGH Budesonide/Formoterol Fumarate 2 puff 06/11/16 12:00 06/14/16 09:49 Symbicort 160/4.5mcg - IH 2 puff BID RO[facility] Administration Docusate Sodium 100 mg 06/10/16 16:34 Colace - PO Q12H PRN CONSTIPATION Furosemide 20 mg 06/12/16 10:00 06/14/16 09:54 Lasix - PO 20 mg Q2D ROSE Administration Azithromycin 250 mg/ Dextrose 250 mls @ 250 mls/hr 06/12/16 10:00 06/14/16 10: 00 IVPB 06/15/16 10:00 250 mls/hr DAILY [facility] Administration Lisinopril 5 mg 06/11/16 10:00 06/14/16 09:54 Prinivil PO 5 mg DAILY [facility] Administration Methylprednisolone Sodium Succinate 40 mg 06/13/16 22:00 06/14/16 10:01 Solu-Medrol - IVPB 40 mg BID [facility] Administration Metoprolol Succinate 25 mg 06/11/16 10:00 06/14/16 10:01 Toprol Xl - PO 25 mg DAILY [facility] Administration Multi-Ingredient Lotion 1 applic 06/11/16 13:00 06/14/16 10:01 Eucerin (Small Jar) - TP 1 applic BID [facility] Administration Nicotine 14 mg 06/11/16 12:15 06/14/16 10:01 Nicoderm Patch - TD Not Given DAILY [facility] Ondansetron HCl 4 mg 06/10/16 16:36 Zofran Injection IVPB Q6H PRN NAUSEA ASSESSMENT/PLAN: This is a 70yF with PMH HTN, chronic venous stasis/insufficiency, cellulitis, CHF, COPD with hypoxia who presented with cough, SOB, hypoxia. She has been admitted for COPD exacerbation. *COPD exacerbation- improving - will continue on Solumedrol taper - cont Zithromax,Duonebs. hold tudorza while on duoneb - CT of chest- mod COPD, no evidence of infiltrate/pneumothorax or pleural effusion - declining oxygen - Pulmonary input appreciated - rec out pt PFT's - Mucinex for cough - will monitor O2 sat *HTN/CHF- stable,euvolemic - cont home medications *Chronic venous stasis, - no evidence of cellulitis - cont on home dose Lasix QOD * Smoker - will continue on Nicotine patch - smoking cessation counselling reinforced *FEN: Heart healthy diet *Dispo: Pt currently requires inpatient monitoring. Visit type - Emergency Visit Emergency Visit: Yes ED Registration Date: 06/10/16 Care time: The patient presented to the Emergency Department on the above date and was hospitalized for further evaluation of their emergent condition. - New Patient This patient is new to me today: Yes Date on this admission: 06/14/16 - Critical Care Critical Care patient: No
[2016-06-14] MEDS: guaiFENesin/D-METHORPHAN HB 1 EACH TAB.ER.12H PO SCH ×2 (15:53→22:10)
[2016-06-15 09:09] LABS: MCH 30.2 pg (25.7-33.7); MEAN CELL VOLUME 94.4 fl (80-96); MEAN PLT VOLUME 8.5 fl (7.5-11.1); PLATELET COUNT 246 K/MM3 (134-434); RDW 13.4 % (11.6-15.6); WHITE BLOOD COUNT 12.8 K/mm3 (4.0-10.0)
[2016-06-15 09:49] LABS: CALCIUM 8.9 mg/dl (8.4-10.2)
[2016-06-15] MEDS ORDERED: PT OWN MED DRAWER 7, Y5N ONE ×2 (10:08→21:56)
[2016-06-15] MEDS: LISINOPRIL 5 MG TABLET (FP) PO SCH (10:10)
[2016-06-15] MEDS: METOPROLOL SUCCINATE 25 MG TAB.SR.24H (FP) PO SCH (10:10)
[2016-06-15] MEDS: BUDESONIDE/FORMETEROL FUMARATE 160/4.5 mcg INHALER IH SCH ×2 (10:10→21:58)
[2016-06-15] MEDS: methylPREDNISolone NA SUCC 40 MG/1 ML VIAL IVPB SCH (10:11)
[2016-06-15] MEDS: MINERAL OIL/PETROLAT/WATER TOPICAL CREAM 113 GM JAR TP SCH ×2 (10:11→21:59)
[2016-06-15] MEDS: guaiFENesin/D-METHORPHAN HB 1 EACH TAB.ER.12H PO SCH ×2 (10:11→21:58)
[2016-06-15] MEDS: ACLIDINIUM BROMIDE 400 MCG/INH AERO.POWD IH SCH ×2 (10:13→21:58)
[2016-06-15] MEDS: NICOTINE 14 MG/24 HOURS TOPICAL PATCH TD SCH (10:13)
[2016-06-15] MEDS: AZITHROMYCIN IVPB 250 MG in DEXTROSE 5%-WATER - 250 ML IVPB SCH (10:13)
--- NOTE | 2016-06-15 12:49 | PN ---
[id number] of her shortness of breath. OBJECTIVE:patient is a 70 year old female with a past medical history of HTN, chronic venous stasis/insufficiency, CHF, COPD with hypoxia. patient was admitted from the emergency department for COPD excerbation. Vital Signs Period Temp Pulse Resp BP Sys/[place] Pulse Ox Last 24 Hr 98 F-98.8 F 61-70 18-20 149-175/71-83 92-93 physical examination GENERAL: The patient is awake, alert, and fully oriented, in no acute distress. HEAD: Normal with no signs of trauma. EYES: PERRL, extraocular movements intact, sclera anicteric, conjunctiva clear. No ptosis. ENT: Ears normal, nares patent, oropharynx clear without exudates, moist mucous membranes. NECK: Trachea midline, full range of motion, supple. LUNGS: Breath sounds equal, clear to auscultation bilaterally to apexes, diminished to bases, no wheezes, no crackles, no accessory muscle use, moist cough noted HEART: Regular rate and rhythm, S1, S2 without murmur, rub or gallop. ABDOMEN: Soft, nontender, nondistended, normoactive bowel sounds, no guarding, no rebound, no hepatosplenomegaly, no masses. EXTREMITIES: 2+ pulses, warm, well-perfused, billateral venous stasis, +1 billateral lower extremity edema (chronic as per patient) . NEUROLOGICAL: Cranial nerves II through XII grossly intact. Normal speech, gait not observed. PSYCH: calm, normal affect. SKIN: Warm, dry, normal turgor, no rashes or lesions noted Laboratory Results - last 24 hr 06/15/16 06/15/16 07:57 07:57 WBC 12.8 H RBC 4.95 Hgb 15.0 Hct 46.7 H MCV 94.4 MCHC 32.0 RDW 13.4 Plt Count 246 D MPV 8.5 Sodium 134 L Potassium 4.2 Chloride 97 L Carbon Dioxide 31 H Anion Gap 6 L BUN 27 H Creatinine 1.0 Random Glucose 125 H Calcium 8.9 Active Medications Generic Name Dose Route Start Last Admin Trade Name Freq PRN Reason Stop Dose Admin Acetaminophen 650 mg 06/10/16 16:36 Tylenol - PO Q4H PRN FEVER OR PAIN Aclidinium [place] 1 puff 06/11/16 12:00 06/15/16 10:13 Tudorza - IH 1 puff BID [facility] Administration Albuterol/Ipratropium 1 amp 06/11/16 12:51 06/13/16 06:00 Duoneb - NEB 1 amp QIDR PRN Administration COUGH Budesonide/Formoterol Fumarate 2 puff 06/11/16 12:00 06/15/16 10:10 Symbicort 160/4.5mcg - IH 2 puff BID [facility] Administration Docusate Sodium 100 mg 06/10/16 16:34 Colace - PO Q12H PRN CONSTIPATION Furosemide 20 mg 06/12/16 10:00 06/14/16 09:54 Lasix - PO 20 mg Q2D [facility] Administration Guaifenesin 1 tablet 06/14/16 13:00 06/15/16 10:11 Mucinex Dm - PO 1 tablet BID [facility]SE Administration Lisinopril 5 mg 06/11/16 10:00 06/15/16 10:10 Prinivil PO 5 mg DAILY [facility] Administration Methylprednisolone Sodium Succinate 40 mg 06/13/16 22:00 06/15/16 10:11 Solu-Medrol - IVPB Not Given BID ROSE Metoprolol Succinate 25 mg 06/11/16 10:00 06/15/16 10:10 Toprol Xl - PO 25 mg DAILY [facility] Administration Multi-Ingredient Lotion 1 applic 06/11/16 13:00 06/15/16 10:11 Eucerin (Small Jar) - TP 1 applic BID [facility] Administration Nicotine 14 mg 06/11/16 12:15 06/15/16 10:13 Nicoderm Patch - TD Not Given DAILY [facility]SE Ondansetron HCl 4 mg 06/10/16 16:36 Zofran Injection IVPB Q6H PRN NAUSEA IMAGING CXR: NO evidence of pulmonary infiltrates, vascular congestion, pleural effusion or pneumothorax. ECG: sinus tach rate 101, poor baseline, non specific ST and T wave abnormality\ CT of chest, noncontrast, moderate COPD with hyperaeration, no infiltrates no effusions no congestion noted ASSESSMENT/PLAN: 1) pulm:COPD exacerbation - continue solumedrol 40mg twice a day - continue symbicort, continue tudorza and duonebs prn - continue zithromax last dose today - pt declines supplemental Oxygen - pulmonary consulted and following 2) card - pt has a pmh of diastolic and systolic congestive heart failure, patient remains euvolemic on exam, will continue with Lasix home dose - continue lisinopril and toprol FEN - tolerating po fluids - low sodium diet as tolerated Dispo: pt currently requires inpatient monitoring. Visit type - Emergency Visit Emergency Visit: Yes ED Registration Date: 06/10/16 Care time: The patient presented to the Emergency Department on the above date and was hospitalized for further evaluation of their emergent condition. - New Patient This patient is new to me today: No - Critical Care Critical Care patient: No - Discharge Referral Referred to [facility] Med P.C.: No
--- NOTE | 2016-06-15 15:43 | PN ---
Progress Note, Physician History of Present Illness: pulmonary alert,feeling better,less dyspneic,+moist cough - Current Medication List Current Medications: Active Medications Acetaminophen (Tylenol -) 650 mg PO Q4H PRN PRN Reason: FEVER OR PAIN Aclidinium [place] (Tudorza -) 1 puff IH BID [facility] Last Admin: 06/15/16 10:13 Dose: 1 puff Albuterol/Ipratropium (Duoneb -) 1 amp NEB QIDR PRN PRN Reason: COUGH Last Admin: 06/13/16 06:00 Dose: 1 amp Budesonide/Formoterol Fumarate (Symbicort 160/4.5mcg -) 2 puff IH BID [facility] Last Admin: 06/15/16 10:10 Dose: 2 puff Docusate Sodium (Colace -) 100 mg PO Q12H PRN PRN Reason: CONSTIPATION Furosemide (Lasix -) 20 mg PO Q2D [facility] Last Admin: 06/14/16 09:54 Dose: 20 mg Guaifenesin (Mucinex Dm -) 1 tablet PO BID [facility] Last Admin: 06/15/16 10:11 Dose: 1 tablet Lisinopril (Prinivil) 5 mg PO DAILY [facility] Last Admin: 06/15/16 10:10 Dose: 5 mg Methylprednisolone Sodium Succinate (Solu-Medrol -) 40 mg IVPB BID [facility] Last Admin: 06/15/16 10:11 Dose: Not Given Metoprolol Succinate (Toprol Xl -) 25 mg PO DAILY [facility] Last Admin: 06/15/16 10:10 Dose: 25 mg Multi-Ingredient Lotion (Eucerin (Small Jar) -) 1 applic TP BID [facility] Last Admin: 06/15/16 10:11 Dose: 1 applic Nicotine (Nicoderm Patch -) 14 mg TD DAILY [facility] Last Admin: 06/15/16 10:13 Dose: Not Given Ondansetron HCl (Zofran Injection) 4 mg IVPB Q6H PRN PRN Reason: NAUSEA - Objective Vital Signs: Vital Signs Temperature 98 F 06/15/16 10:16 Pulse Rate 70 06/15/16 10:45 Respiratory Rate 18 06/15/16 10:16 Blood Pressure 175/71 06/15/16 10:16 O2 Sat by Pulse Oximetry (%) 92 L 06/15/16 10:45 Constitutional: Yes: Well Nourished, Calm Eyes: Yes: WNL HENT: Yes: WNL Neck: Yes: WNL Cardiovascular: Yes: Regular Rate and Rhythm, S1, S2 Respiratory: Yes: Diminished Gastrointestinal: Yes: WNL Extremities: Yes: WNL Edema: No Labs: CBC, BMP 06/15/16 07:57 06/15/16 07:57 - ....Imaging Cat Scan: Report Reviewed, Image Reviewed (-MASSES,-INFILTRATES,EFFUSIONS) Problem List - Problems (1) COPD exacerbation Code(s): J44.1 - CHRONIC OBSTRUCTIVE PULMONARY DISEASE W (ACUTE) EXACERBATION (2) Hypoxia Code(s): R09.02 - HYPOXEMIA (3) Shortness of breath Code(s): R06.02 - SHORTNESS OF BREATH (4) Edema Code(s): R60.9 - EDEMA, UNSPECIFIED (5) Lower extremity edema Code(s): R60.0 - LOCALIZED EDEMA Qualifiers: Qualified Code(s): R60.0 - Localized edema (6) Acute on chronic respiratory failure with hypoxemia Code(s): J96.21 - ACUTE AND CHRONIC RESPIRATORY FAILURE WITH HYPOXIA (7) Congestive heart failure Code(s): I50.9 - HEART FAILURE, UNSPECIFIED (8) Tobacco abuse Code(s): Z72.0 - TOBACCO USE (9) Tobacco abuse counseling Code(s): Z71.6 - TOBACCO ABUSE COUNSELING Assessment/Plan IMP ACUTE ON CHRONIC HYPOXEMIC RESPIRATORY FAILURE CLINICALLY IMPROVING COPD EXACERBATION IMPROVING LV DYSFUNCTION HTN SMOKER PLAN PREDNISONE 20mq PO DAILY INHALED BRONCHODILATORS SUPPLEMENTAL O2 ANTIBIOTICS PFTS OUTPATIENT OUTPATIENT PULMONARY REHAB POST DISCHARGE DR LEMON Problem List - Problems (1) COPD exacerbation Code(s): J44.1 - CHRONIC OBSTRUCTIVE PULMONARY DISEASE W (ACUTE) EXACERBATION (2) Hypoxia Code(s): R09.02 - HYPOXEMIA (3) Shortness of breath Code(s): R06.02 - SHORTNESS OF BREATH (4) Edema Code(s): R60.9 - EDEMA, UNSPECIFIED (5) Lower extremity edema Code(s): R60.0 - LOCALIZED EDEMA Qualifiers: Laterality: bilateral Qualified Code(s): R60.0 - Localized edema (6) Acute on chronic respiratory failure with hypoxemia Code(s): J96.21 - ACUTE AND CHRONIC RESPIRATORY FAILURE WITH HYPOXIA (7) Congestive heart failure Code(s): I50.9 - HEART FAILURE, UNSPECIFIED (8) Tobacco abuse Code(s): Z72.0 - TOBACCO USE (9) Tobacco abuse counseling Code(s): Z71.6 - TOBACCO ABUSE COUNSELING
[2016-06-15] MEDS: predniSONE 20 MG TABLET (UD) PO SCH (18:23)
[2016-06-16] MEDS ORDERED: predniSONE 20 MG TABLET (UD) PO SCH (10:00)
--- NOTE | 2016-06-16 10:11 | PN ---
Progress Note, Physician History of Present Illness: pulmonary alert,feeling better,dyspnea improving,+cough - Current Medication List Current Medications: Active Medications Acetaminophen (Tylenol -) 650 mg PO Q4H PRN PRN Reason: FEVER OR PAIN Aclidinium [place] (Tudorza -) 1 puff IH BID [facility] Last Admin: 06/15/16 21:58 Dose: 1 puff Albuterol/Ipratropium (Duoneb -) 1 amp NEB QIDR PRN PRN Reason: COUGH Last Admin: 06/13/16 06:00 Dose: 1 amp Budesonide/Formoterol Fumarate (Symbicort 160/4.5mcg -) 2 puff IH BID [facility] Last Admin: 06/15/16 21:58 Dose: 2 puff Docusate Sodium (Colace -) 100 mg PO Q12H PRN PRN Reason: CONSTIPATION Furosemide (Lasix -) 20 mg PO Q2D [facility] Last Admin: 06/14/16 09:54 Dose: 20 mg Guaifenesin (Mucinex Dm -) 1 tablet PO BID [facility] Last Admin: 06/15/16 21:58 Dose: 1 tablet Lisinopril (Prinivil) 5 mg PO DAILY [facility] Last Admin: 06/15/16 10:10 Dose: 5 mg Metoprolol Succinate (Toprol Xl -) 25 mg PO DAILY [facility] Last Admin: 06/15/16 10:10 Dose: 25 mg Multi-Ingredient Lotion (Eucerin (Small Jar) -) 1 applic TP BID [facility] Last Admin: 06/15/16 21:59 Dose: 1 applic Nicotine (Nicoderm Patch -) 14 mg TD DAILY [facility] Last Admin: 06/15/16 10:13 Dose: Not Given Ondansetron HCl (Zofran Injection) 4 mg IVPB Q6H PRN PRN Reason: NAUSEA Prednisone (Deltasone -) 20 mg PO DAILY [facility] Last Admin: 06/15/16 18:23 Dose: 20 mg - Objective Vital Signs: Vital Signs Temperature 98.6 F 06/16/16 04:58 Pulse Rate 52 L 06/16/16 04:58 Respiratory Rate 18 06/16/16 04:58 Blood Pressure 162/63 06/16/16 04:58 O2 Sat by Pulse Oximetry (%) 93 L 06/15/16 22:45 Constitutional: Yes: Calm, Thin Eyes: Yes: WNL HENT: Yes: WNL Neck: Yes: WNL Cardiovascular: Yes: Regular Rate and Rhythm, S1, S2 Respiratory: Yes: Diminished Gastrointestinal: Yes: Normal Bowel Sounds, Soft Extremities: Yes: WNL Edema: No Labs: CBC, BMP 06/15/16 07:57 06/15/16 07:57 Problem List - Problems (1) COPD exacerbation Code(s): J44.1 - CHRONIC OBSTRUCTIVE PULMONARY DISEASE W (ACUTE) EXACERBATION (2) Hypoxia Code(s): R09.02 - HYPOXEMIA (3) Shortness of breath Code(s): R06.02 - SHORTNESS OF BREATH (4) Edema Code(s): R60.9 - EDEMA, UNSPECIFIED (5) Lower extremity edema Code(s): R60.0 - LOCALIZED EDEMA Qualifiers: Qualified Code(s): R60.0 - Localized edema (6) Acute on chronic respiratory failure with hypoxemia Code(s): J96.21 - ACUTE AND CHRONIC RESPIRATORY FAILURE WITH HYPOXIA (7) Congestive heart failure Code(s): I50.9 - HEART FAILURE, UNSPECIFIED (8) Tobacco abuse Code(s): Z72.0 - TOBACCO USE (9) Tobacco abuse counseling Code(s): Z71.6 - TOBACCO ABUSE COUNSELING Assessment/Plan IMP ACUTE ON CHRONIC HYPOXEMIC RESPIRATORY FAILURE CLINICALLY IMPROVED COPD EXACERBATION IMPROVED LV DYSFUNCTION HTN SMOKER PLAN PREDNISONE 20mq PO DAILY INHALED BRONCHODILATORS SUPPLEMENTAL O2 ANTIBIOTICS PFTS OUTPATIENT OUTPATIENT PULMONARY REHAB POST DISCHARGE DR [place]EM[place] Problem List - Problems (1) COPD exacerbation Code(s): J44.1 - CHRONIC OBSTRUCTIVE PULMONARY DISEASE W (ACUTE) EXACERBATION (2) Hypoxia Code(s): R09.02 - HYPOXEMIA (3) Shortness of breath Code(s): R06.02 - SHORTNESS OF BREATH (4) Edema Code(s): R60.9 - EDEMA, UNSPECIFIED (5) Lower extremity edema Code(s): R60.0 - LOCALIZED EDEMA Qualifiers: Laterality: bilateral Qualified Code(s): R60.0 - Localized edema (6) Acute on chronic respiratory failure with hypoxemia Code(s): J96.21 - ACUTE AND CHRONIC RESPIRATORY FAILURE WITH HYPOXIA (7) Congestive heart failure Code(s): I50.9 - HEART FAILURE, UNSPECIFIED (8) Tobacco abuse Code(s): Z72.0 - TOBACCO USE (9) Tobacco abuse counseling Code(s): Z71.6 - TOBACCO ABUSE COUNSELING
[2016-06-16] MEDS ORDERED: PT OWN MED DRAWER 7, Y5N ONE ×2 (10:30→21:24)
[2016-06-16] MEDS: NICOTINE 14 MG/24 HOURS TOPICAL PATCH TD SCH (10:38)
[2016-06-16] MEDS: LISINOPRIL 5 MG TABLET (FP) PO SCH (10:38)
[2016-06-16] MEDS: predniSONE 20 MG TABLET (UD) PO SCH (10:38)
[2016-06-16] MEDS: guaiFENesin/D-METHORPHAN HB 1 EACH TAB.ER.12H PO SCH ×2 (10:38→21:29)
[2016-06-16] MEDS: METOPROLOL SUCCINATE 25 MG TAB.SR.24H (FP) PO SCH (10:38)
[2016-06-16] MEDS: ACLIDINIUM BROMIDE 400 MCG/INH AERO.POWD IH SCH ×2 (10:38→21:29)
[2016-06-16] MEDS: FUROSEMIDE 20 MG TABLET (FP) PO SCH (10:38)
[2016-06-16] MEDS: MINERAL OIL/PETROLAT/WATER TOPICAL CREAM 113 GM JAR TP SCH ×2 (10:38→21:29)
[2016-06-16] MEDS: BUDESONIDE/FORMETEROL FUMARATE 160/4.5 mcg INHALER IH SCH ×2 (10:38→21:29)
--- NOTE | 2016-06-16 14:22 | PN ---
Physical Exam: SUBJECTIVE: Patient seen and examined, patient has any shortness of breath, patient reports she doesn't want to go home OBJECTIVE::patient is a 70 year old female with a past medical history of HTN, chronic venous stasis/insufficiency, CHF, COPD with hypoxia. patient was admitted from the emergency department for COPD excerbation. Vital Signs Period Temp Pulse Resp BP Sys/[place] Pulse Ox Last 24 Hr 97.4 F-98.6 F 52-57 18-20 162-166/63-73 92-93 physical examination GENERAL: The patient is awake, alert, and fully oriented, in no acute distress. HEAD: Normal with no signs of trauma. EYES: PERRL, extraocular movements intact, sclera anicteric, conjunctiva clear. No ptosis. ENT: Ears normal, nares patent, oropharynx clear without exudates, moist mucous membranes. NECK: Trachea midline, full range of motion, supple. LUNGS: Breath sounds equal, clear to auscultation bilaterally to apexes, diminished to bases, no wheezes, no crackles, no accessory muscle use, moist cough noted HEART: Regular rate and rhythm, S1, S2 without murmur, rub or gallop. ABDOMEN: Soft, nontender, nondistended, normoactive bowel sounds, no guarding, no rebound, no hepatosplenomegaly, no masses. EXTREMITIES: 2+ pulses, warm, well-perfused, billateral venous stasis, +1 billateral lower extremity edema (chronic as per patient) . NEUROLOGICAL: Cranial nerves II through XII grossly intact. Normal speech, gait not observed. PSYCH: calm, normal affect. SKIN: Warm, dry, normal turgor, no rashes or lesions noted Active Medications Generic Name Dose Route Start Last Admin Trade Name Freq PRN Reason Stop Dose Admin Acetaminophen 650 mg 06/10/16 16:36 Tylenol - PO Q4H PRN FEVER OR PAIN Aclidinium [place] 1 puff 06/11/16 12:00 06/16/16 10:38 Tudorza - IH 1 puff BID [facility] Administration Albuterol/Ipratropium 1 amp 06/11/16 12:51 06/13/16 06:00 Duoneb - NEB 1 amp QIDR PRN Administration COUGH Budesonide/Formoterol Fumarate 2 puff 06/11/16 12:00 06/16/16 10:38 Symbicort 160/4.5mcg - IH 2 puff BID [facility] Administration Docusate Sodium 100 mg 06/10/16 16:34 Colace - PO Q12H PRN CONSTIPATION Furosemide 20 mg 06/12/16 10:00 06/16/16 10:38 Lasix - PO 20 mg Q2D [facility] Administration Guaifenesin 1 tablet 06/14/16 13:00 06/16/16 10:38 Mucinex Dm - PO 1 tablet BID [facility] Administration Lisinopril 5 mg 06/11/16 10:00 06/16/16 10:38 Prinivil PO 5 mg DAILY [facility] Administration Metoprolol Succinate 25 mg 06/11/16 10:00 06/16/16 10:38 Toprol Xl - PO 25 mg DAILY [facility] Administration Multi-Ingredient Lotion 1 applic 06/11/16 13:00 06/16/16 10:38 Eucerin (Small Jar) - TP 1 applic BID [facility] Administration Nicotine 14 mg 06/11/16 12:15 06/16/16 10:38 Nicoderm Patch - TD Not Given DAILY [facility] Ondansetron HCl 4 mg 06/10/16 16:36 Zofran Injection IVPB Q6H PRN NAUSEA Prednisone 20 mg 06/15/16 18:15 06/16/16 10:38 Deltasone - PO 20 mg DAILY [facility] Administration Microbiology 06/13/16 11:35 Urine - Urine Clean Catch Urine Culture - Final 06/14/16 17:00 Nasopharyngeal Swab Influenza Types A,B Antigen (SASHA) - Final , negative 06/14/16 17:00 Nasopharyngeal Swab - Final ASSESSMENT/PLAN: 1) pulm:COPD exacerbation - transition to prednisone - continue symbicort, continue tudorza and duonebs prn - completed 5 days of IV Zithromax - pt declines supplemental Oxygen - pulmonary consulted and following 2) card - pt has a pmh of diastolic and systolic congestive heart failure, patient remains euvolemic on exam, will continue with Lasix home dose - continue lisinopril and toprol FEN - tolerating po fluids - low sodium diet as tolerated Dispo: pt currently requires inpatient monitoring. Visit type - Emergency Visit Emergency Visit: Yes ED Registration Date: 06/10/16 Care time: The patient presented to the Emergency Department on the above date and was hospitalized for further evaluation of their emergent condition. - New Patient This patient is new to me today: No - Critical Care Critical Care patient: No - Discharge Referral Referred to [facility] Med P.C.: Yes Physician Referral: Sohail Thomas MD (Int Med)
[2016-06-17 06:16] VITALS: BP 163/75; TEMP 98
--- NOTE | 2016-06-17 08:36 | DS ---
Physical Exam: SUBJECTIVE: Patient seen and examined, patient reports feeling better, denies any chest pain or shortness of breath. OBJECTIVE: patient is a 70 year old female with a past medical history of HTN, chronic venous stasis/insufficiency, CHF, COPD with hypoxia who was sent to the ED from her PMD office with SOB, cough and hypoxia into 70s in PCP office. States her cough started 2-3 days ago. Pt reports feeling a little better, less SOB, but still feels "crappy." Denies any CP, N/V/D. ER course was notable for: (1) BNP 2608 (2) Trop 0.10 Vital Signs Period Temp Pulse Resp BP Sys/[place] Pulse Ox Last 24 Hr 97.6 F-98.0 F 54-70 18-20 144-163/59-75 92-94 PHYSICAL EXAM GENERAL: The patient is awake, alert, and fully oriented, in no acute distress. HEAD: Normal with no signs of trauma. EYES: PERRL, extraocular movements intact, sclera anicteric, conjunctiva clear. ENT: Ears normal, nares patent, oropharynx clear without exudates, moist mucous membranes. NECK: Trachea midline, full range of motion, supple. LUNGS: Breath sounds equal, clear to auscultation bilaterally to apexes, diminished to bases, no wheezes, no crackles, no accessory muscle use. HEART: Regular rate and rhythm, S1, S2 without murmur, rub or gallop. ABDOMEN: Soft, nontender, nondistended, normoactive bowel sounds, no guarding, no rebound, no hepatosplenomegaly, no masses. EXTREMITIES: 2+ pulses, warm, well-perfused, no edema. NEUROLOGICAL: Cranial nerves II through XII grossly intact. Normal speech, gait not observed. PSYCH: Normal mood, normal affect. SKIN: Warm, dry, normal turgor, no rashes or lesions noted. LABS CBC WBC 12.8 K/mm3 (4.0-10.0) H 06/15/16 07:57 RBC 4.95 M/mm3 (3.60-5.2) 06/15/16 07:57 Hgb 15.0 GM/dl (10.7-15.3) 06/15/16 07:57 Hct 46.7 % (32.4-45.2) H 06/15/16 07:57 MCV 94.4 fl (80-96) 06/15/16 07:57 MCHC 32.0 g/dl (32.0-36.0) 06/15/16 07:57 RDW 13.4 % (11.6-15.6) 06/15/16 07:57 Plt Count 246 K/MM3 (134-434) D 06/15/16 07:57 MPV 8.5 fl (7.5-11.1) 06/15/16 07:57 Neutrophils % 87.7 % (42.8-82.8) H 06/14/16 06:00 Lymphocytes % 8.5 % (8-40) 06/14/16 06:00 Monocytes % 3.7 % (3.8-10.2) L 06/14/16 06:00 Eosinophils % 0.0 % (0-4.5) 06/14/16 06:00 Basophils % 0.1 % (0-2.0) 06/14/16 06:00 Band Neutrophils 2.0 % (0-10) 06/13/16 07:00 Platelet Estimate Normal (NORMAL) 06/13/16 07:00 CMP Sodium 134 mmol/L (136-145) L 06/15/16 07:57 Potassium 4.2 mmol/L (3.5-5.1) 06/15/16 07:57 Chloride 97 mmol/L (98-107) L 06/15/16 07:57 Carbon Dioxide 31 mmol/L (22-28) H 06/15/16 07:57 Anion Gap 6 (8-16) L 06/15/16 07:57 BUN 27 mg/dl (7-18) H 06/15/16 07:57 Creatinine 1.0 mg/dl (0.6-1.3) 06/15/16 07:57 Creat Clearance w eGFR 55.14 (>60) 06/12/16 07:00 Random Glucose 125 mg/dl (74-106) H 06/15/16 07:57 Calcium 8.9 mg/dl (8.4-10.2) 06/15/16 07:57 Phosphorus 2.8 mg/dl (2.5-4.6) 06/10/16 14:08 Magnesium 2.1 mg/dL (1.8-2.4) 06/12/16 07:00 Total Bilirubin 0.7 mg/dl (0.2-1.0) D 06/12/16 07:00 Direct Bilirubin 0.2 mg/dl (0.0-0.2) 06/10/16 14:40 AST 40 U/L (10-42) 06/12/16 07:00 ALT 18 U/L (10-40) 06/12/16 07:00 Alkaline Phosphatase 70 U/L (32-92) 06/12/16 07:00 Creatine Kinase 163 IU/L (26-192) 06/11/16 04:00 CK-MB (CK-2) 2.813 ng/ml (0.5-3.6) 06/11/16 04:00 Troponin I 0.05 ng/ml (0.00-0.05) 06/11/16 04:00 B-Natriuretic Peptide 2608.56 pg/ml (5-125) H 06/10/16 14:08 Total Protein 6.1 g/dl (6.4-8.3) L 06/12/16 07:00 Albumin 3.4 g/dl (3.5-5.0) L 06/12/16 07:00 Microbiology 06/13/16 11:35 Urine - Urine Clean Catch Urine Culture - Final 06/14/16 17:00 Nasopharyngeal Swab Influenza Types A,B Antigen (SASHA) - Final , negative l HOSPITAL COURSE: patient was admitted from the emergency department for copd exacerbation. Patient was hypoxic (88%) upon admission. Spo2 improved to 95% with supplemental O2. patient was placed on solumedrol with a taper. She was placed on symbicort with duoneb combivent and tudorza was continued throughout. She continued 5 days of IV zithromax. pulmonary Dr Phillips was consulted and followed. patient has pmh of diastolic and systolic congestive heart failure, patient remains euvolemic throughout his hospitalization. home dose of lasix was continued throughout hospitalization. lisinopril and toprol,patient's home medication and dosage was continued throughout hospitalization. patient's blood pressure remained at goal PLAN: - pulmonary rehab - continue symbicort - prn albuterol nebulizers - prednsione taper Date of Admission:06/10/16 Date of Discharge: 06/17/16 Minutes to complete discharge: 45 Discharge Summary Reason For Visit: COPD Current Active Problems Acute on chronic respiratory failure with hypoxemia (Acute) COPD exacerbation (Acute) Congestive heart failure (Acute) Hypoxia (Acute) Shortness of breath (Acute) Tobacco abuse (Acute) Tobacco abuse counseling (Acute) Condition: Improved - Instructions Diet, Activity, Other Instructions: rest, resume regular diet continue taking symbicort as prescribed continue taking prednisone as prescribed albuterol inhaler/nebulizer every 4 hours as needed for shortness of breath please follow up with Dr Phillips (pulmonary) within 3 weeks please follow up with Dr Thomas (PCP) within 1 week Return to the emergency department immediately with ANY new, persistent or worsening symptoms. You MUST call and follow up with your doctor tomorrow. Please make sure your doctor reviews the results of your hospital stay. Referrals: Abdulaziz Phillips MD [Staff Physician] - Disposition: HOME - Home Medications Comprehensive Discharge Medication List: Ambulatory Orders RX: Docusate Sodium [Colace -] 100 mg PO BID PRN #60 capsule 07/10/15 RX: Furosemide [Lasix -] 20 mg PO Q2D #30 tablet 07/10/15 RX: Lisinopril [Prinivil] 5 mg PO DAILY #30 tablet 07/10/15 This patient is new to me today: No Emergency Visit: Yes ED Registration Date: 06/10/16 Care time: The patient presented to the Emergency Department on the above date and was hospitalized for further evaluation of their emergent condition. Critical Care patient: No - Discharge Referral Referred to [facility] Med P.C.: Yes Physician Referral: Sohail Thomas MD (Int Med)
[2016-06-17] MEDS ORDERED: PT OWN MED DRAWER 7, Y5N ONE (09:34)
[2016-06-17] MEDS: MINERAL OIL/PETROLAT/WATER TOPICAL CREAM 113 GM JAR TP SCH (09:37)
[2016-06-17] MEDS: LISINOPRIL 5 MG TABLET (FP) PO SCH (09:38)
[2016-06-17] MEDS: NICOTINE 14 MG/24 HOURS TOPICAL PATCH TD SCH (09:38)
[2016-06-17] MEDS: guaiFENesin/D-METHORPHAN HB 1 EACH TAB.ER.12H PO SCH (09:38)
[2016-06-17] MEDS: ACLIDINIUM BROMIDE 400 MCG/INH AERO.POWD IH SCH (09:39)
[2016-06-17] MEDS: BUDESONIDE/FORMETEROL FUMARATE 160/4.5 mcg INHALER IH SCH (09:39)
[2016-06-17] MEDS: METOPROLOL SUCCINATE 25 MG TAB.SR.24H (FP) PO SCH (09:39)
[2016-06-17] MEDS: predniSONE 20 MG TABLET (UD) PO SCH (09:41)
[2016-06-17 11:02] VITALS: PULSE 72
== END 2016-06-17 13:47 | disposition home or self-care (01) | DRG 190 ==
LOC: FER 12:45 → FM/S 16:43
PROVIDERS: ADMIT Internal Medicine; ATTEND Nurse Practitioner Family
DX: J44.1 Chronic obstructive pulmonary disease with (acute) exacerbation (principal); J96.21 Acute and chronic respiratory failure with hypoxia; I11.0 Hypertensive heart disease with heart failure; I50.9 Heart failure, unspecified; R60.0 Localized edema; Z72.0 Tobacco use
CPT/HCPCS: 36415; 71020-TC; 71250-TC; 80048; 80053; 80076; 81003; 81015; 82550; 82553; 83735; 83880; 84100; 84484; 85025; 85027; 87086; 87254; 87804; 93005; 94010; 94150; 94640; 99283-25

== ENCOUNTER 2018-06-15 18:01 | Inpatient (IN) | payer OTHER ==
--- NOTE | 2018-06-15 20:02 | PDOC ---
*Physical Exam - Vital Signs Last Vital Signs Temp Pulse Resp BP Pulse Ox 98.2 F 101 H 20 127/67 95 06/15/18 19:11 06/15/18 19:11 06/15/18 19:11 06/15/18 19:11 06/15/18 19:11 - Physical Exam Comments: 06/15/18 20:01 The patient was examined by [GILDA Correa] under my direct supervision. I personally evaluated the patient. I concur with the above findings and the plan of care. *DC/Admit/Observation/Transfer - Referrals Referrals: Sohail Thomas MD [Primary Care Provider] - - Patient Instructions - Post Discharge Activity
[2018-06-15] MEDS ORDERED: CLINDAMYCIN IVPB 300 MG in DEXTROSE 5%-WATER - 48 ML IVPB ONE (20:14)
--- NOTE | 2018-06-15 20:53 | PDOC ---
History of Present Illness - General Chief Complaint: Edema Stated Complaint: INFECTION Time Seen by Provider: 06/15/18 19:17 History Source: Patient Exam Limitations: No Limitations Past History - Past Medical History Allergies/Adverse Reactions: Allergies Allergy/AdvReac Type Severity Reaction Status Date / Time Penicillins Allergy Verified 06/15/18 19:11 Antibiotics (CAN TAKE Z-PACK) Allergy Pt states Uncoded 06/15/18 19:11 is sensitive to many antibiotics but can take zpak Home Medications: Ambulatory Orders Lisinopril [Prinivil] 5 mg PO DAILY #30 tablet 07/10/15 Albuterol 0.083% Nebulizer Jolie [Ventolin 0.083% Nebulizer Soln -] 1 neb NEB Q6H PRN #30 vial 06/17/16 Tiotropium [place] [Spiriva] 1 inh IH DAILY #1 inh 06/17/16 Furosemide [Lasix -] 40 mg PO DAILY 06/15/18 Metoprolol Succinate 12.5 mg PO DAILY 06/15/18 COPD: Yes HTN: Yes - Surgical History Appendectomy: Yes - Suicide/Smoking/Psychosocial Hx Smoking History: Unknown if ever smoked Have you smoked in the past 12 months: No Number of Cigarettes Smoked Daily: 7 'Breaking Loose' booklet given: 01/28/15 Hx Alcohol Use: No Drug/Substance Use Hx: No Substance Use Type: None Hx Substance Use Treatment: No *Physical Exam - Vital Signs Last Vital Signs Temp Pulse Resp BP Pulse Ox 98.2 F 101 H 20 127/67 95 06/15/18 19:11 06/15/18 19:11 06/15/18 19:11 06/15/18 19:11 06/15/18 19:11 - Physical Exam General Appearance: No: Apparent Distress Respiratory/Chest: positive: Lungs Clear, Normal Breath Sounds. negative: Respiratory Distress Cardiovascular: positive: Regular Rhythm, Regular Rate, S1, S2. negative: Murmur Gastrointestinal/Abdominal: positive: Normal Bowel Sounds, Soft. negative: Tender, Distended, Guarding, Rebound Extremity: positive: Pedal Edema, Swelling (of BLE), Erythema, Other (BL chronic venous stasis changes; along lateral aspect of BLE, skin appears a bit macerated, with bloody and small pustular discharge, difficult to feel pulses in BLE) Neurologic: positive: Fully Oriented, Alert, Normal Mood/Affect Moderate Sedation - Procedure Monitoring Vital Signs: Procedure Monitoring Vital Signs Temperature 98.2 F 06/15/18 19:11 Pulse Rate 101 H 06/15/18 19:11 Respiratory Rate 20 06/15/18 19:11 Blood Pressure 127/67 06/15/18 19:11 O2 Sat by Pulse Oximetry (%) 95 06/15/18 19:11 ED Treatment Course - LABORATORY CBC & Chemistry Diagram: 06/15/18 20:00 06/15/18 20:42 - RADIOLOGY Radiology Studies Ordered: Category Date Time Status DUPLEX ART. LOWER COMPL US [US] Stat Ultrasound 06/15/18 20:12 Ordered DUPLEX VASCUL US-2LEGS [US] Stat Ultrasound 06/15/18 20:12 Ordered Medical Decision Making - Medical Decision Making 72 y/o F with hx of HTN, chronic venous stasis, COPD, ?CHF presents with oozing from BLE for 1.5 weeks. Has had chronic BLE swelling for around 3 years and is on Lasix 40 mg daily (is followed by Dr. Thomas at [facility]). Mentions may have possible chills. Denies trauma, fever, cp, abd pain, n/v, other complaints PE concerning for BLE venous stasis changes with cellulitis; difficult to feel pulses in BLE Plan: Labs, BLE US to r/o DVT and BLE arterial US Will start on Clindamycin with plan to likely admit to monitor cellulitis 06/15/18 20:47 Labs reviewed - glucose 62, patient given food to eat, repeat FS was 137; rest of labs otherwise unremarkable No evidence of DVT, but noted for atherosclerotic disease in lower extremities Patient to be admitted for monitoring of cellulitis 06/15/18 23:31 *DC/Admit/Observation/Transfer Diagnosis at time of Disposition: Cellulitis Qualifiers: Site of cellulitis: extremity Site of cellulitis of extremity: lower extremity Laterality: unspecified laterality Qualified Code(s): L03.119 - Cellulitis of unspecified part of limb - Discharge Dispostion Condition at time of disposition: Stable Decision to Admit order: Yes - Referrals Referrals: Sohail Thomas MD [Primary Care Provider] - - Patient Instructions - Post Discharge Activity
[2018-06-15] MEDS ORDERED: CLINDAMYCIN 600MG PREMIX IVPB 600 MG/50 ML BAG IVPB ONE ×2 (20:56→20:57)
[2018-06-15 21:05] LABS: BASO % 0.5 % (0-2.0); EOS % 1.1 % (0-4.5); HEMATOCRIT 43.7 % (32.4-45.2); HEMOGLOBIN 15.2 GM/dL (10.7-15.3); LYMPH % 17.3 % (8-40); MCH 32.3 pg (25.7-33.7); MCHC 34.7 g/dl (32.0-36.0); MEAN CELL VOLUME 93.2 fl (80-96); MEAN PLT VOLUME 9.1 fl (7.5-11.1); MONO % 7.3 % (3.8-10.2); NEUT % 73.8 % (42.8-82.8); PLATELET COUNT 239 K/MM3 (134-434); RBC 4.69 M/mm3 (3.60-5.2); RDW 14.9 % (11.6-15.6); WHITE BLOOD COUNT 8.5 K/mm3 (4.0-10.0)
[2018-06-15 21:25] LABS: ALBUMIN 3.2 g/dl (3.4-5.0); ALK PHOS 140 U/L (45-117); ANION GAP 4 MMOL/L (8-16); BILIRUBIN,TOTAL 0.7 mg/dL (0.2-1); BLOOD UREA NITROGEN 18 mg/dL (7-18); CALCIUM 9.3 mg/dL (8.5-10.1); CHLORIDE 104 mmol/L (98-107); CO2 33 mmol/L (21-32); CREATININE 0.9 mg/dL (0.55-1.3); GLUCOSE,RANDOM 62 mg/dL (74-106); SGOT/AST 18 U/L (15-37); SGPT/ALT 22 U/L (13-61); SODIUM 141 mmol/L (136-145); TOT PROT 6.6 g/dl (6.4-8.2)
--- NOTE | 2018-06-16 00:25 | PN ---
Teaching Attending Note Name of Resident: [facility] ATTENDING PHYSICIAN STATEMENT I saw and evaluated the patient. I reviewed the resident's note and discussed the case with the resident. I agree with the resident's findings and plan as documented. SUBJECTIVE: Seen and examined; please see resident note for further documentation regarding hx. Briefly, she has chronic LE changes and swelling and 1 week ago she started having worsening bilateral erythema and pain with some wound weepage. She has stigmata of chronic vascular disease bilaterally with poor skin care, unkempt toenails, etc. She had some malaise but no karsten fevers, etc. She chose to come in today due to her saying the pain became severe and she had some chills with them. She came in by ambulance due to her having issues ambulating and she states she cannot get around due to the pain. She has no white count, no fever, does have hx of scratching her LE. Baseline ambulation uses a cane, OK with her ADLs, lives with her children nearby. Never has seen wound care or vascular sgy. 10 sys ROS done and negative aside from HPI PMH (asthma, ?CHF, 2 years BL LE Edema; she normally gets her care from PCP Dr. Thomas), PSH reviewed Socially she doesn't smoke or drink alcohol FH asked and noncontributoy Medications (Spiriva, toprol xl 12.5 QD, lpril 5 QD, lasix 40 QD) reviewed; pending reconciliation OBJECTIVE: VS, labs, imaging reviewed NAD, AAO, resting comfortably in bed with no complaints NC AT EOMI PERRLA B/L sym edema and rubar with b/l ulcers stereotyped of PAD with some sloughing and weeping. B/L venous stasis changes and b/l redness; consistent with PAD. No karsten induration. Foul smelling, unkempt toenails with marked onychomycosis. Palpable PT and I have asked for PT/DP to be dopplered and marked by the resident team. RRR s1/2 no mgr CN2-12 wnl, no fnd Labs without WBC, unremarkable chemistry. Lipids, ESR, CRP pending Art US shows mod arterial disease recommended CTA; venous duplex doesn't show DVT. EKG pending my review ASSESSMENT AND PLAN: Presents with b/l LE pain and worsening of chronic changes with recent drainage found to have at least moderate PAD 1) Peripheral Vascular Disease with ?Cellulitis in the setting of chronic b/l LE edema -Cellulitis initially expected but would be very unlikely to have b/l sym cellulitis with chronic changes without any white count or fever. Granted, there is a chance of mild infection superimposing so will place on PO clindamycin for a 5-7 day course. -Consulting wound care; consulting vascular sgy. US results reviewed; they recommended angiography and will defer ordering to specialty service (in case other studies wanted by them want to mitigate contrast load) -Monitor wounds QD; consider hyperbaric tx, etc. as OP -Starting ASA 81 QD; checking lipids and will start statin. 2) Hx Asthma -PRN albuterol when inpatint; no exacerbations -Optimize handhelds as OP 3) ?CHF dx -Is on lasix, JAYSON, 40 lasix QD. No karsten exacerbation with LE swelling likely 2/ 2 #1. Will obtain OP records to see if she ever had an echo FENA -PO -PRN replete -Heart healthy diet -As tolerated Full Code
[2018-06-16] MEDS ORDERED: ALBUTEROL SO4 0.083% IH SOL 2.5 MG/3 ML VIAL.NEB. NEB PRN ×2 (01:16→13:05)
--- NOTE | 2018-06-16 01:27 | HP ---
<Joe Rainey - Last Filed: 06/16/18 06:33> CHIEF COMPLAINT: PCP: Martha HISTORY OF PRESENT ILLNESS: 72 y/o F with PMH HTN, chronic venous stasis, COPD, systolic CHF? p/w oozing from BLE foot wound for 1-2 weeks. Has had chronic BLE swelling for around 3 years and is on Lasix 40 mg daily (is followed by Dr. Thomas at [facility]). Endorses some fatigue but denies any fevers, n/v/d, abd pain, urinary sxs. pt doesnt know how wound formed, denies any trauma to wound. tried to use extra foot paddng when walking. She in tiday however bec pain became severe and she had some chills with them. Baseline ambulation uses a cane, OK with her ADLs , lives with her children nearby, although recently has been difficult to ambulate even w/ walker. Of note, does have hx of scratching her LE. ER course was notable for: (1)BLE US No evidence of DVT, but noted for moderate atherosclerotic disease in lower extremities (2)clindamycin IV (3) Recent Travel: pt denies PAST MEDICAL HISTORY: per hpi PAST SURGICAL HISTORY: appendectomy age 18 Social History: Smokin-5 cig/day, started smoking age 17, used to smoke 1+ PPD Alcohol: pt denies Drugs: pt denies Family History: mother age 94, cancer, unknown type father age 55, alcoholic cirrhosis Allergies Penicillins Allergy (Verified 06/15/18 19:11) Antibiotics (CAN TAKE Z-PACK) Allergy (Uncoded 06/15/18 19:11) Pt states is sensitive to many antibiotics but can take zpak HOME MEDICATIONS: Home Medications Medication Instructions Recorded Lisinopril [Prinivil] 5 mg PO DAILY #30 tablet 07/10/15 Albuterol 0.083% Nebulizer Jolie 1 neb NEB Q6H PRN #30 vial 06/17/16 [Ventolin 0.083% Nebulizer Soln -] Tiotropium [place] [Spiriva] 1 inh IH DAILY #1 inh 06/17/16 Furosemide [Lasix -] 40 mg PO DAILY 06/15/18 Metoprolol Succinate 12.5 mg PO DAILY 06/15/18 REVIEW OF SYSTEMS as per hpi PHYSICAL EXAMINATION Vital Signs - 24 hr 06/15/18 19:11 Temperature 98.2 F Pulse Rate 101 H Respiratory 20 Rate Blood Pressure 127/67 O2 Sat by Pulse 95 Oximetry (%) GENERAL: AOX3 NAD HEAD: Normal with no signs of trauma. EYES: extraocular movements intact, sclera anicteric, conjunctiva clear. No lid lag. EARS, NOSE, THROAT: nares patent, oropharynx clear without exudates. Moist mucous membranes. NECK: Normal range of motion, supple without lymphadenopathy, JVD, or masses. LUNGS: CTAB HEART: RRR, normal S1 and S2 without murmur, rub or gallop. ABDOMEN: Soft, nontender, not distended, normoactive bowel sounds, no guarding, no rebound, no masses. MUSCULOSKELETAL: Normal range of motion at all joints. No bony deformities or tenderness. UPPER EXTREMITIES: 2+ pulses, warm, well-perfused. No cyanosis. No clubbing. No peripheral edema. LOWER EXTREMITIES: 1+ pulses, difficult to appreciate, warm. ttp diffusely. 2+ peripheral edema. chronic venous stasis. flaky skin w/ onchomycosis NEUROLOGICAL: Cranial nerves II-XII intact. Normal speech. PSYCHIATRIC: Cooperative. Good eye contact. Appropriate mood and affect. SKIN: Warm, dry, normal capillary refill. Laboratory Results - last 24 hr 06/15/18 06/15/18 06/15/18 20:00 20:42 22:53 WBC 8.5 RBC 4.69 Hgb 15.2 Hct 43.7 MCV 93.2 MCH 32.3 MCHC 34.7 RDW 14.9 Plt Count 239 MPV 9.1 Absolute Neuts (auto) 6.3 Neutrophils % 73.8 Lymphocytes % 17.3 D Monocytes % 7.3 D Eosinophils % 1.1 D Basophils % 0.5 D Nucleated RBC % 0 Sodium 141 Potassium 5.0 Chloride 104 Carbon Dioxide 33 H Anion Gap 4 L BUN 18 Creatinine 0.9 Creat Clearance w eGFR > 60 POC Glucometer [id number] Random Glucose 62 L Calcium 9.3 Total Bilirubin 0.7 AST 18 ALT 22 Alkaline Phosphatase 140 H Total Protein 6.6 Albumin 3.2 L ASSESSMENT/PLAN: 72 y/o F with PMH HTN, chronic venous stasis, COPD, systolic CHF? p/w oozing from BLE foot wound for 1-2 weeks. b/l foot wound 2/2 PAD vs cellulitis - pt is not septic appearing. VSS no wbc. cellultis less likely given b/l and aseptic presentation. however, chance of mild infx and pt is high risk of infx s/p clinda 600 IV in ED BLE US No evidence of DVT, but noted for moderate atherosclerotic disease in lower extremities c/w clindamycin 600 IV wound care/vasc consult gabapentin 100mg TID for neuropathic pain, increase as needed fall precautions c/w home dose lasix check lipids consider starting ASA and Statin HTN, COPD, systolic CHF? c/w home dose meds: lasix, inhalers, BB, JAYSON etc.... PRN albuterol unclear about CHF status, will try to obain old records, may be useful to obtain echo for a baseline/to clarify FENA PO hydration replete prn Low sodium diet consider PT eval ppx SQH Full Code dispo medsurg obs Visit type - Emergency Visit Emergency Visit: Yes ED Registration Date: 06/15/18 Care time: The patient presented to the Emergency Department on the above date and was hospitalized for further evaluation of their emergent condition. - New Patient This patient is new to me today: Yes Date on this admission: 06/16/18 - Critical Care Critical Care patient: No <Artemio Good - Last Filed: 06/27/18 19:54> Seen and examined;agree with all the above aside form as edited by me in my own note. Thank you. Was present for all vital parts of encounter; plan discussed with me. Agree with above as documented by the resident.
[2018-06-16] MEDS ORDERED: CLINDAMYCIN HCL 150 MG CAPSULE (FP) PO SCH ×2 (01:45→06:00)
[2018-06-16] MEDS ORDERED: HEPARIN NA (PORCINE) 5,000 UNITS/ML 1ML VIAL SQ SCH ×2 (02:00→06:00)
--- NOTE | 2018-06-16 03:48 | RAPID ---
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 pt c/o SOB after laying flat w/ palpitations. found to be tachycardic to 144 on monitor and desaturated to 92% on RA initial vitals BP 145/89, HR 144, 92% on RA PE laying comfortably in bed mild distress crackles at bases RR tachycardia NTNT Chronic leg edema pt was put on 2L NC and O2 sat improved to 96%. Lopressor 5mg IV was given and HR improved to 100s-110s w/ BP 130s/60s acute hypoxic respiratory failure may be 2/2 PE (pt has been mostly immobile at home and now w/ new hypoxia tachycardia) vs fluid overload (questionable PMH of CHF?, pt on lasix) vs arrhythmia Plan: EKG stat ABG BNP CTA to r/o PE transfer to tele for continuos monitoring Of note, pt continually refused care and was verbally combative towards care team during REGISTER OF DEEDS. We explained risks and benefits of the proposed tests and treatments. Pt states she understands and is now in aggreeance w/ the plan. <Artemio Good - Last Filed: 06/27/18 19:54> Physical Examination Vital Signs: Vital Signs Temperature 98.1 F 06/24/18 13:10 Pulse Rate 62 06/24/18 13:10 Respiratory Rate 18 06/24/18 13:10 Blood Pressure 117/58 L 06/24/18 13:10 O2 Sat by Pulse Oximetry (%) 92 L 06/24/18 10:00 Labs: CBC, BMP 06/22/18 06:00 06/24/18 06:00 Rapid Response - Rapid Response Outcome: Seen and examined;agree with all the above aside form as edited by me in my own note. Thank you. Was present for all vital parts of encounter; plan discussed with me. Agree with above as documented by the resident.
[2018-06-16 03:53] LABS: ARTERIAL BLD GAS O2 SATURATION 91.7 % (90-98.9); ARTERIAL BLOOD GAS BASE EXCESS 2.5 meq/l (-2-2); ARTERIAL BLOOD GAS PCO2 55.2 mmHg (35-45); ARTERIAL BLOOD GAS PO2 67.5 mmHg (70-100); ARTERIAL BLOOD GAS pH 7.34 (7.35-7.45)
[2018-06-16 03:54] LABS: ALLENS TEST POSITIVE
[2018-06-16] MEDS ORDERED: METOPROLOL TARTRATE 5 MG/5 ML VIAL ONE (04:02)
--- NOTE | 2018-06-16 05:32 | PN ---
Progress Note (short form) - Note Progress Note: During [facility] pt continually refused care and was verbally combative towards care team. Treatment of her CTA, higher level of cardiac monitoring and necessity of these treatments were reinforced multiple times with rest of care team at bedside. Pt currently voices she understands the tests and monitoring are needed and thus are proceeding to CTA and telemetry transfer. [facility], DO - IM PGY-2 <[facility] - Last Filed: 06/22/18 21:19> - Note Progress Note: Seen and examined;agree with all the above aside form as edited by me in my own note. Thank you. Was present for all vital parts of encounter; plan discussed with me. Agree with above as documented by the resident. <Artemio Good - Last Filed: 06/27/18 21:20>
[2018-06-16 05:35] LABS: BASO % 0.4 % (0-2.0); EOS % 0.3 % (0-4.5); HEMATOCRIT 43.2 % (32.4-45.2); LYMPH % 5.2 % (8-40); MCH 30.2 pg (25.7-33.7); MCHC 32.4 g/dl (32.0-36.0); MEAN CELL VOLUME 93.3 fl (80-96); MEAN PLT VOLUME 9.1 fl (7.5-11.1); MONO % 7.8 % (3.8-10.2); NEUT % 86.3 % (42.8-82.8); PLATELET COUNT 203 K/MM3 (134-434); RBC 4.63 M/mm3 (3.60-5.2); RDW 15.1 % (11.6-15.6); WHITE BLOOD COUNT 11.8 K/mm3 (4.0-10.0)
[2018-06-16 05:59] LABS: ALBUMIN 2.9 g/dl (3.4-5.0); ALK PHOS 127 U/L (45-117); ANION GAP 6 MMOL/L (8-16); BLOOD UREA NITROGEN 19 mg/dL (7-18); CHLORIDE 106 mmol/L (98-107); CHOLESTEROL 193 mg/dL (50-200); CO2 30 mmol/L (21-32); CREATININE 1.1 mg/dL (0.55-1.3); GLUCOSE,RANDOM 87 mg/dL (74-106); HDL CHOLESTEROL 81 mg/dL (40-60); MAGNESIUM 1.7 mg/dL (1.8-2.4); PHOSPHOROUS 3.3 mg/dL (2.5-4.9); POTASSIUM 4.9 mmol/L (3.5-5.1); SGOT/AST 18 U/L (15-37); SGPT/ALT 20 U/L (13-61); SODIUM 141 mmol/L (136-145); TOT PROT 6.1 g/dl (6.4-8.2); TRIGLYCERIDES 74 mg/dL (0-150)
[2018-06-16] MEDS ORDERED: GABAPENTIN 100 MG CAPSULE (FP) PO SCH (06:00)
[2018-06-16] MEDS ORDERED: METOPROLOL TARTRATE 5 MG/5 ML VIAL IVPUSH ONE (06:25)
[2018-06-16] MEDS: CLINDAMYCIN 600MG PREMIX IVPB 600 MG/50 ML BAG IVPB SCH ×2 (06:31→09:50)
[2018-06-16] MEDS ORDERED: LACTATED RINGERS SOLUTION 1,000 ML/1,000 ML INFUS.BAG IV SCH (06:45)
[2018-06-16] MEDS ORDERED: ACLIDINIUM BROMIDE IH SCH (07:00)
[2018-06-16 07:51] LABS: INR 1.13 (0.83-1.09); PROTHROMBIN TIME (PATIENT) 13.3 SEC (9.7-13.0)
[2018-06-16 07:53] LABS: ACTIVATED PTT 36.4 SECONDS (25.2-36.5)
[2018-06-16 08:14] LABS: CHOLESTEROL 172 mg/dL (50-200); HDL CHOLESTEROL 73 mg/dL (40-60); TRIGLYCERIDES 65 mg/dL (0-150)
[2018-06-16] MEDS ORDERED: MAGNESIUM OXIDE 400 MG TABLET (FP) PO ONE (08:45)
[2018-06-16] MEDS ORDERED: PT OWN MED DRAWER 7, Y5N ONE ×2 (09:37→13:33)
[2018-06-16] MEDS ORDERED: LISINOPRIL 5 MG TABLET (FP) PO SCH (10:00)
[2018-06-16] MEDS ORDERED: BUDESONIDE/FORMETEROL FUMARATE 160/4.5 mcg INHALER IH SCH (10:00)
[2018-06-16] MEDS ORDERED: metoPROLOL SUCCINATE 25 MG TAB.SR.24H (FP) PO SCH (10:00)
[2018-06-16] MEDS ORDERED: FUROSEMIDE 40 MG TABLET (FP) PO SCH (10:00)
--- NOTE | 2018-06-16 12:43 | PN ---
Progress Note (short form) - Note Progress Note: ID CONSULT DICTATED CELLULITIS/ INFECTED LEG ULCERS B/L CHRONIC VENOUS STASIS DERMATITIS LE B/L PCN ALLERGY ( HAS TOLERATED CEPHALOSPORINS IN PAST) OBTAIN BC CEFAZOLIN 2GM Q8H VASCULAR EVAL
--- NOTE | 2018-06-16 12:44 | EKG ---
Test Reason : Blood Pressure : / mmHG Vent. Rate : 137 BPM Atrial Rate : 137 BPM P-R Int : 146 ms QRS Dur : 080 ms QT Int : 280 ms P-R-T Axes : 086 044 -74 degrees QTc Int : 422 ms POOR DATA QUALITY, INTERPRETATION MAY BE ADVERSELY AFFECTED SINUS TACHYCARDIA WITH PREMATURE SUPRAVENTRICULAR COMPLEXES ANTEROSEPTAL INFARCT , AGE UNDETERMINED MARKED ST ABNORMALITY, POSSIBLE INFERIOR SUBENDOCARDIAL INJURY ABNORMAL ECG WHEN COMPARED WITH ECG OF 10-JUN-2016 14:01, SIGNIFICANT CHANGES HAVE OCCURRED Confirmed by VANE REEDER MD ([id number]) on 06/16/2018 12:44:14 PM Referred By: Confirmed By:VANE REEDER MD
[2018-06-16] MEDS ORDERED: SODIUM PHOSPHATE - 30 MM in DEXTROSE 5%-WATER - 250 ML IVPB ONE (12:49)
--- NOTE | 2018-06-16 13:19 | CONS ---
DATE OF CONSULTATION: DATE OF DICTATION: 06/16/2018 HISTORY: The patient is a 72-year-old female with a longstanding history of chronic venostasis dermatitis of the lower extremities bilaterally now evaluated for bilateral lower extremity cellulitis. She reports that over the past 1-2 weeks she has had worsening erythema, pain, and swelling of the lower extremities bilaterally associated with malodorous weepage. She experienced chills and subjective fever. She presented to the emergency room where she was diagnosed with bilateral lower extremity cellulitis. A Doppler exam was performed and was negative for DVT. Her hospital course was complicated by worsening dyspnea, tachycardia, and hypoxemia. A rapid response was called. The patient was transferred to telemetry. A CT of the chest was negative for pulmonary embolism. It showed changes consistent with COPD but no active infiltrate. She was empirically treated with clindamycin. The patient reports a history of PENICILLIN allergy, which consists primarily of GI symptoms. She denies any high-grade fever or shaking chills. She was hospitalized 3 years ago for bilateral lower extremity cellulitis in the setting of chronic venostasis dermatitis. Cultures at that time were positive for methicillin-sensitive Staphylococcus aureus and Moraxella. PAST MEDICAL HISTORY: Positive for COPD, CHF, hypertension, chronic venostasis dermatitis. ALLERGIES: PENICILLIN. MEDICATIONS: Include albuterol, clindamycin, Lasix, Neurontin, lisinopril, metoprolol. SOCIAL HISTORY: Lives in the community. Positive history of tobacco use. SYSTEMS REVIEW: Neurologic: No loss of consciousness, seizure activity, focal weakness. Cardiac: Negative chest pain or palpitations. Respiratory: As per HPI. Gastrointestinal: Negative vomiting or diarrhea. Genitourinary: Negative for urinary tract infection. LABORATORY DATA: White count 11.8, hematocrit 43.2, platelet count 203, BUN 19, creatinine 1.1, ESR 29, C-reactive protein 5.9. Chest x-ray negative. Influenza swab negative. PHYSICAL EXAMINATION: General: She is awake and alert, chronically ill appearing. Vital Signs: Temperature 98.4, blood pressure 118/61, pulse 95 and regular, respirations 18 per minute. HEENT: Sclerae anicteric. Heart: S1, S2. Lungs: Clear. No rales, rhonchi, or wheezing. Abdomen: Soft. Nontender. Extremities: Bilateral lower extremity edema and lymphedema. Bilateral chronic venostasis dermatitis with ulcerations. Superimposed erythema and warmth present below the knee to the feet bilaterally. There is malodorous serous drainage weeping from the chronic venostasis ulcers. No lymphangitic spread. Hypertrophic toenails. IMPRESSION: 1. Cellulitis, infected leg ulcers bilaterally. 2. Chronic venostasis dermatitis lower extremities bilaterally. 3. PENICILLIN allergy. PLAN: Obtain blood cultures. Empiric antibiotic coverage with cefazolin 2 g IV piggyback every 8 hours based on previous wound isolets and susceptibilities. The patient has tolerated cephalosporins in the past. Vascular evaluation. Local wound care. We will follow. Thank you for the kind referral. EDER GAY M.D. [id number]
--- NOTE | 2018-06-16 13:20 | PN ---
Physical Exam: SUBJECTIVE: Patient seen and examined at bedside this morning. She endorses pain and purulent drainage from her b/l lower extremity ulcers. This morning she denies subjective fevers, chills, shortness of breath, chest pain, palpitations, abdominal pain, nausea, vomiting. Overnight there was a rapid response called after patient placed flat. EKG showed sinus tachycardia to 144BM, CTA was negative for PE. ABG showed slight respiratory acidosis at pH 7.34 pCO2 55.2, PO2 67.5, HCO3 29.1. She was given Lopressor 5mg which reduced her tachycardia. OBJECTIVE: Vital Signs Period Temp Pulse Resp BP Sys/M[place]onado Pulse Ox Last 24 Hr 98.2 F-98.4 F 88-138 17-24 98-141/61-77 94-95 GENERAL: The patient is awake, alert, and fully oriented, in no acute distress. HEAD: Normocephalic, atraumatic EYES: PERRL, extraocular movements intact, sclera anicteric, conjunctiva clear without injection B/L. ENT: Oropharynx clear without exudates, moist mucous membranes. NECK: Supple without lymphadenopathy. No JVD noted. LUNGS: Good inspiratory effort, poor air entry B/L. Nno wheezes, no crackles auscultated. No accessory muscle use. HEART: Regular rate and rhythm, S1, S2 without murmur, rub or gallop. ABDOMEN: Soft, nontender, nondistended. Normoactive bowel sounds X4 quadrants. No guarding, no rebound tenderness. EXTREMITIES: 2+ radial pusles B/L. Lower extremities 2+ pitting edema, tender with dry flaking skin. 5cm X 5cm ulcer noted along right lateral lower extremity , draining purulent discharge. Two 4cm X 4cm ulcers along left lateral lower extremity, draining purulent discharge. Onychomycosis noted B/L. NEUROLOGICAL: Cranial nerves II through XII grossly intact. Normal speech. Strength 5/5 B/L upper extremities, strength 4/5 B/L lower extremities. PSYCH: Normal mood, normal affect upon my encounter today. Laboratory Results - last 24 hr 06/15/18 06/15/18 06/15/18 20:00 20:42 22:53 WBC 8.5 RBC 4.69 Hgb 15.2 Hct 43.7 MCV 93.2 MCH 32.3 MCHC 34.7 RDW 14.9 Plt Count 239 MPV 9.1 Absolute Neuts (auto) 6.3 Neutrophils % 73.8 Lymphocytes % 17.3 D Monocytes % 7.3 D Eosinophils % 1.1 D Basophils % 0.5 D Nucleated RBC % 0 ESR PT with INR INR PTT (Actin FS) Puncture Site ABG pH ABG pCO2 at Pt Temp ABG pO2 at Pt Temp ABG HCO3 ABG O2 Sat (Measured) ABG O2 Content ABG Base Excess Vijay Test O2 Delivery Device Oxygen Flow Rate PEEP Sodium 141 Potassium 5.0 Chloride 104 Carbon Dioxide 33 H Anion Gap 4 L BUN 18 Creatinine 0.9 Creat Clearance w eGFR > 60 POC Glucometer 137.22157 Random Glucose 62 L Calcium 9.3 Phosphorus Magnesium Total Bilirubin 0.7 AST 18 ALT 22 Alkaline Phosphatase 140 H C-Reactive Protein B-Natriuretic Peptide Total Protein 6.6 Albumin 3.2 L Triglycerides Cholesterol Total LDL Cholesterol HDL Cholesterol Influenza A (Rapid) Influenza B (Rapid) 06/16/18 06/16/18 06/16/18 03:46 04:30 04:30 WBC 11.8 H RBC 4.63 Hgb 14.0 Hct 43.2 MCV 93.3 MCH 30.2 MCHC 32.4 RDW 15.1 Plt Count 203 MPV 9.1 Absolute Neuts (auto) 10.2 H Neutrophils % 86.3 H Lymphocytes % 5.2 L D Monocytes % 7.8 Eosinophils % 0.3 Basophils % 0.4 Nucleated RBC % 0 ESR PT with INR INR PTT (Actin FS) Puncture Site Right radial ABG pH 7.34 L ABG pCO2 at Pt Temp 55.2 H ABG pO2 at Pt Temp 67.5 L ABG HCO3 29.1 H ABG O2 Sat (Measured) 91.7 ABG O2 Content 18.5 ABG Base Excess 2.5 H Vijay Test Positive O2 Delivery Device Nasal Oxygen Flow Rate 2l PEEP 0.0 Sodium 141 Potassium 4.9 Chloride 106 Carbon Dioxide 30 Anion Gap 6 L BUN 19 H Creatinine 1.1 Creat Clearance w eGFR 49.10 POC Glucometer Random Glucose 87 Calcium 9.0 Phosphorus 3.3 Magnesium 1.7 L Total Bilirubin 1.0 AST 18 ALT 20 Alkaline Phosphatase 127 H C-Reactive Protein 5.9 H B-Natriuretic Peptide 480.0 H Total Protein 6.1 L Albumin 2.9 L Triglycerides 74 Cholesterol 193 Total LDL Cholesterol 95 HDL Cholesterol 81 H Influenza A (Rapid) Influenza B (Rapid) 06/16/18 06/16/18 06/16/18 04:30 04:30 07:20 WBC RBC Hgb Hct MCV MCH MCHC RDW Plt Count MPV Absolute Neuts (auto) Neutrophils % Lymphocytes % Monocytes % Eosinophils % Basophils % Nucleated RBC % ESR 29 PT with INR 13.30 H INR 1.13 H PTT (Actin FS) 36.4 Puncture Site ABG pH ABG pCO2 at Pt Temp ABG pO2 at Pt Temp ABG HCO3 ABG O2 Sat (Measured) ABG O2 Content ABG Base Excess Vijay Test O2 Delivery Device Oxygen Flow Rate PEEP Sodium Potassium Chloride Carbon Dioxide Anion Gap BUN Creatinine Creat Clearance w eGFR POC Glucometer Random Glucose Calcium Phosphorus Magnesium Total Bilirubin AST ALT Alkaline Phosphatase C-Reactive Protein B-Natriuretic Peptide Total Protein Albumin Triglycerides Cholesterol Total LDL Cholesterol HDL Cholesterol Influenza A (Rapid) Negative Influenza B (Rapid) Negative 06/16/18 07:20 WBC RBC Hgb Hct MCV MCH MCHC RDW Plt Count MPV Absolute Neuts (auto) Neutrophils % Lymphocytes % Monocytes % Eosinophils % Basophils % Nucleated RBC % ESR PT with INR INR PTT (Actin FS) Puncture Site ABG pH ABG pCO2 at Pt Temp ABG pO2 at Pt Temp ABG HCO3 ABG O2 Sat (Measured) ABG O2 Content ABG Base Excess Vijay Test O2 Delivery Device Oxygen Flow Rate PEEP Sodium Potassium Chloride Carbon Dioxide Anion Gap BUN Creatinine Creat Clearance w eGFR POC Glucometer Random Glucose Calcium Phosphorus Magnesium Total Bilirubin AST ALT Alkaline Phosphatase C-Reactive Protein B-Natriuretic Peptide Total Protein Albumin Triglycerides 65 Cholesterol 172 Total LDL Cholesterol 83 HDL Cholesterol 73 H Influenza A (Rapid) Influenza B (Rapid) Active Medications Generic Name Dose Route Start Last Admin Trade Name Freq PRN Reason Stop Dose Admin Albuterol Sulfate 1 amp 06/16/18 13:05 Ventolin 0.083% Nebulizer Soln - NEB Q6H PRN SHORT OF BREATH/WHEEZING Budesonide/Formoterol Fumarate 2 puff 06/16/18 22:00 Symbicort 160/4.5mcg - IH BID ROSE Furosemide 40 mg 06/17/18 10:00 Lasix - PO DAILY [facility] Gabapentin 100 mg 06/16/18 14:00 Neurontin - PO TID ROSE Heparin Sodium (Porcine) 5,000 unit 06/16/18 14:00 Heparin - SQ TID ROSE Lactated Ringer's 1,000 ml in 1,000 mls @ 100 mls/hr 06/16/18 06:45 06/16/18 07:15 Lactated Ringers Solution IV 06/16/18 16:44 100 mls/hr ASDIR ROSE Administration Cefazolin Sodium 2 gm/ 50 mls @ 200 mls/hr 06/16/18 12:45 Dextrose IVPB Q8H-IV ROSE Sodium Phosphate 30 mm/ 260 mls @ 62.5 mls/hr 06/16/18 12:49 Dextrose IVPB 06/16/18 16:58 ONCE ONE Lactobacillus Acidophilus 1 tab 06/16/18 12:15 Bacid - PO DAILY [facility] Lisinopril 5 mg 06/17/18 10:00 Prinivil PO DAILY [facility] Metoprolol Succinate 12.5 mg 06/17/18 10:00 Toprol Xl - PO DAILY [facility] Mupirocin 1 applic 06/16/18 12:15 Bactroban 2% Ointment - TP BID [facility] Non-Formulary Medication 1 puff 06/17/18 07:00 Aclidinium [place] [Tudorza Pressair] IH AM [facility] ASSESSMENT/PLAN: Patient is a 72 year old female with history of chronic lower extremity venous stasis, hypertension, COPD, and congestive heart failure presents with complaint of bilateral lower extremity wounds with purulent drainage. Lower extremity venous stasis wounds -Wounds likely secondary to long standing venous stasis. -Lower extremity arterial doppler shows moderate atherosclerotic disease with abnormal monophasic flow bilateraly. -Lower extremity venous duplex shows no evidence of DVT -ID consult (Dr. Santiago) appreciated. Begin Cefazolin 2grams IV Q8H -Bactroban 2% ointment applied BID prior to dressing application -Pain control with gabapentin 100mg PO TID -Vascular surgery, wound care consult (Dr. Nevarez) -F/U wound cultures Lower extremity fungal infection, onychomycosis -Ketoconazole topical ointment 1 application TP daily -Podiatry consult (Dr. Pierre) Congestive heart failure -Cardiac ECHO shows: Severely reduced EF = 25-20%, with LV hypokinesis. -Lisinopril 5mg PO daily -Metoprolol 12.5mg PO daily -Lasix 40mg PO daily -Cardiology consult (Dr. Duvall) -Daily weights, strict intake and output. Hypertension -Patient is receiving Lisinopril, Metoprolol, Lasix. Hyperlipidemia -Atorvastatin 40mg PO HS COPD -Symbicort 160/ 4.5mcg 2puff BID -Tudorza 1 puff daily -Albuterol nebulizer 1 amp Q6H PRN for shortness of breath -Pulmonology consult (Dr. Phillips) FEN -No IV fluids indicated. -Hypomagnesemia repleted. Follow CMP -Sodium controlled diet Prophylaxis -Heparin 5000u subq TID Disposition -Patient admitted for inpatient care in medical- surgical floor Visit type - Emergency Visit Emergency Visit: Yes ED Registration Date: 06/16/18 Care time: The patient presented to the Emergency Department on the above date and was hospitalized for further evaluation of their emergent condition. - New Patient This patient is new to me today: Yes Date on this admission: 06/16/18 - Critical Care Critical Care patient: Yes Total Critical Care Time (in minutes): 35 Critical Care Statement: The care of this patient involved high complexity decision making to prevent further life threatening deterioration of the patient 's condition and/or to evaluate & treat vital organ system(s) failure or risk of failure. - Discharge Referral Referred to [facility] Med [facility] No
[2018-06-16] MEDS: LACTOBACILLUS ACIDOPHILUS 1 TABLET PO SCH (13:30)
[2018-06-16] MEDS: MUPIROCIN 2% TOPICAL OINTMENT 22 GM TUBE TP SCH ×2 (13:30→22:31)
--- NOTE | 2018-06-16 14:15 | PN ---
Teaching Attending Note Name of Resident: Tesfaye Gomez ATTENDING PHYSICIAN STATEMENT I saw and evaluated the patient. I reviewed the resident's note and discussed the case with the resident. I agree with the resident's findings and plan as documented. SUBJECTIVE: Patient reports pain in both legs. She denies SOB. OBJECTIVE: Vital Signs Period Temp Pulse Resp BP Sys/[place] Pulse Ox Last 24 Hr 97.9 F-98.4 F 88-138 17-24 98-141/58-77 94-95 HEART: S1S2, RRR LUNGS: Decreased BS bilaterally ABDOMEN: Soft, non-tender, non-distended, normal BS EXTREMITIES: Bilateral chronic venous stasis changes with ulcers of both legs, erythema and scaling of both feet and legs up to knees, thickened yellow nails on all toes Laboratory Results - last 24 hr 06/15/18 06/15/18 06/15/18 20:00 20:42 22:53 WBC 8.5 RBC 4.69 Hgb 15.2 Hct 43.7 MCV 93.2 MCH 32.3 MCHC 34.7 RDW 14.9 Plt Count 239 MPV 9.1 Absolute Neuts (auto) 6.3 Neutrophils % 73.8 Lymphocytes % 17.3 D Monocytes % 7.3 D Eosinophils % 1.1 D Basophils % 0.5 D Nucleated RBC % 0 ESR PT with INR INR PTT (Actin FS) Puncture Site ABG pH ABG pCO2 at Pt Temp ABG pO2 at Pt Temp ABG HCO3 ABG O2 Sat (Measured) ABG O2 Content ABG Base Excess Vijay Test O2 Delivery Device Oxygen Flow Rate PEEP Sodium 141 Potassium 5.0 Chloride 104 Carbon Dioxide 33 H Anion Gap 4 L BUN 18 Creatinine 0.9 Creat Clearance w eGFR > 60 POC Glucometer [id number] Random Glucose 62 L Calcium 9.3 Phosphorus Magnesium Total Bilirubin 0.7 AST 18 ALT 22 Alkaline Phosphatase 140 H C-Reactive Protein B-Natriuretic Peptide Total Protein 6.6 Albumin 3.2 L Triglycerides Cholesterol Total LDL Cholesterol HDL Cholesterol Influenza A (Rapid) Influenza B (Rapid) 06/16/18 06/16/18 06/16/18 03:46 04:30 04:30 WBC 11.8 H RBC 4.63 Hgb 14.0 Hct 43.2 MCV 93.3 MCH 30.2 MCHC 32.4 RDW 15.1 Plt Count 203 MPV 9.1 Absolute Neuts (auto) 10.2 H Neutrophils % 86.3 H Lymphocytes % 5.2 L D Monocytes % 7.8 Eosinophils % 0.3 Basophils % 0.4 Nucleated RBC % 0 ESR PT with INR INR PTT (Actin FS) Puncture Site Right radial ABG pH 7.34 L ABG pCO2 at Pt Temp 55.2 H ABG pO2 at Pt Temp 67.5 L ABG HCO3 29.1 H ABG O2 Sat (Measured) 91.7 ABG O2 Content 18.5 ABG Base Excess 2.5 H Vijay Test Positive O2 Delivery Device Nasal Oxygen Flow Rate 2l PEEP 0.0 Sodium 141 Potassium 4.9 Chloride 106 Carbon Dioxide 30 Anion Gap 6 L BUN 19 H Creatinine 1.1 Creat Clearance w eGFR 49.10 POC Glucometer Random Glucose 87 Calcium 9.0 Phosphorus 3.3 Magnesium 1.7 L Total Bilirubin 1.0 AST 18 ALT 20 Alkaline Phosphatase 127 H C-Reactive Protein 5.9 H B-Natriuretic Peptide 480.0 H Total Protein 6.1 L Albumin 2.9 L Triglycerides 74 Cholesterol 193 Total LDL Cholesterol 95 HDL Cholesterol 81 H Influenza A (Rapid) Influenza B (Rapid) 06/16/18 06/16/18 06/16/18 04:30 04:30 07:20 WBC RBC Hgb Hct MCV MCH MCHC RDW Plt Count MPV Absolute Neuts (auto) Neutrophils % Lymphocytes % Monocytes % Eosinophils % Basophils % Nucleated RBC % ESR 29 PT with INR 13.30 H INR 1.13 H PTT (Actin FS) 36.4 Puncture Site ABG pH ABG pCO2 at Pt Temp ABG pO2 at Pt Temp ABG HCO3 ABG O2 Sat (Measured) ABG O2 Content ABG Base Excess Vijay Test O2 Delivery Device Oxygen Flow Rate PEEP Sodium Potassium Chloride Carbon Dioxide Anion Gap BUN Creatinine Creat Clearance w eGFR POC Glucometer Random Glucose Calcium Phosphorus Magnesium Total Bilirubin AST ALT Alkaline Phosphatase C-Reactive Protein B-Natriuretic Peptide Total Protein Albumin Triglycerides Cholesterol Total LDL Cholesterol HDL Cholesterol Influenza A (Rapid) Negative Influenza B (Rapid) Negative 06/16/18 07:20 WBC RBC Hgb Hct MCV MCH MCHC RDW Plt Count MPV Absolute Neuts (auto) Neutrophils % Lymphocytes % Monocytes % Eosinophils % Basophils % Nucleated RBC % ESR PT with INR INR PTT (Actin FS) Puncture Site ABG pH ABG pCO2 at Pt Temp ABG pO2 at Pt Temp ABG HCO3 ABG O2 Sat (Measured) ABG O2 Content ABG Base Excess Vijay Test O2 Delivery Device Oxygen Flow Rate PEEP Sodium Potassium Chloride Carbon Dioxide Anion Gap BUN Creatinine Creat Clearance w eGFR POC Glucometer Random Glucose Calcium Phosphorus Magnesium Total Bilirubin AST ALT Alkaline Phosphatase C-Reactive Protein B-Natriuretic Peptide Total Protein Albumin Triglycerides 65 Cholesterol 172 Total LDL Cholesterol 83 HDL Cholesterol 73 H Influenza A (Rapid) Influenza B (Rapid) Current Medications Generic Name Dose Route Start Last Admin Trade Name Freq PRN Reason Stop Dose Admin Albuterol Sulfate 1 amp 06/16/18 13:05 Ventolin 0.083% Nebulizer Soln - NEB Q6H PRN SHORT OF BREATH/WHEEZING Aspirin 81 mg 06/16/18 13:45 Asa - PO DAILY [facility] Atorvastatin Calcium 40 mg 06/16/18 22:00 Lipitor - PO HS ROSE Budesonide/Formoterol Fumarate 2 puff 06/16/18 22:00 Symbicort 160/4.5mcg - IH BID [facility] Furosemide 40 mg 06/17/18 10:00 Lasix - PO DAILY [facility] Gabapentin 100 mg 06/16/18 14:00 Neurontin - PO TID [facility] Heparin Sodium (Porcine) 5,000 unit 06/16/18 14:00 Heparin - SQ TID RO[facility] Lactated Ringer's 1,000 ml in 1,000 mls @ 100 mls/hr 06/16/18 06:45 06/16/18 07:15 Lactated Ringers Solution IV 06/16/18 16:44 100 mls/hr ASDIR ROSE Administration Cefazolin Sodium 2 gm/ 50 mls @ 200 mls/hr 06/16/18 12:45 Dextrose IVPB Q8H-IV [facility] Sodium Phosphate 30 mm/ 260 mls @ 62.5 mls/hr 06/16/18 12:49 Dextrose IVPB 06/16/18 16:58 ONCE ONE Lactobacillus Acidophilus 1 tab 06/16/18 12:15 Bacid - PO DAILY [facility] Lisinopril 5 mg 06/17/18 10:00 Prinivil PO DAILY [facility] Metoprolol Succinate 12.5 mg 06/17/18 10:00 Toprol Xl - PO DAILY [facility] Mupirocin 1 applic 06/16/18 12:15 Bactroban 2% Ointment - TP BID [facility] Non-Formulary Medication 1 puff 06/17/18 07:00 Aclidinium [place] [Tudorza Pressair] IH AM [facility] ASSESSMENT AND PLAN: This is a 72 year old woman with a history of venous stasis, chronic systolic heart failure, hypertension, hyperlipidemia, COPD who presented with pain and ulcers of both legs. 1. Infected venous stasis ulcers of both legs - Clindamycin changed to Ancef - Topical Bactroban to ulcers - Add topical antifungal to feet - Arterial duplex shows bilateral moderate atherosclerotic disease with abnormal flow - Vascular surgery, podiatry consults 2. Onychomycosis of toenails with fungal skin infection of feet and legs - Podiatry consult - Add topical antifungal 3. COPD - Stable - Continue Symbicort, Tudorza 4. HTN - Continue Toprol XL, Lisinopril, Lasix 5. Hyperlipidemia - Continue Lipitor 6. Chronic systolic heart failure - Stable - EF 35-40% in 2016 - Continue Lasix, Lisinopril, Toprol XL 7. Hypomagnesemia - Supplement magnesium
[2018-06-16] MEDS ORDERED: KETOCONAZOLE 2% CREAM - 60GM TUBE TP SCH (14:45)
--- NOTE | 2018-06-16 15:20 | CON.PULM ---
Consult Consult Specialty:: PULMONARY Referred by:: Dr. Karimi Reason for Consultation:: shortness of breath, hypoxia - History of Present Illness Chief Complaint: shortness of breath History of Present Illness: 72yo female with h/o HTN, LV systolic dysfunction, COPD who was admitted with leg swelling and foot wound. Admitted initially to the floor, had rapid response called overnight due to tachycardia and mild desaturation to 92%. Transferred to telemetry for closer monitoring. Currently denies shortness of breath or chest pain. No fevers, chills or sweats. Denies cough or wheezing. CTA chest was done which did not show evidence of PE but showing emphysematous changes. Currently feels at baseline. She is a long time smoker, maintained at home on symbicort and tudorza. - History Source History Provided By: Patient, Medical Record Limitations to Obtaining History: No Limitations - Past Medical History Cardio/Vascular: Yes: CHF, HTN, Other (venous stasis ulcers) Pulmonary: Yes: COPD - Past Surgical History Past Surgical History: Yes: Appendectomy - Alcohol/Substance Use Hx Alcohol Use: No History of Substance Use: reports: None - Smoking History Smoking history: Current some day smoker Have you smoked in the past 12 months: Yes Aproximately how many cigarettes per day: 5 - Social History Usual Living Arrangement: With Child ADL: Independent History of Recent Travel: No Home Medications - Allergies Allergies/Adverse Reactions: Allergies Allergy/AdvReac Type Severity Reaction Status Date / Time Penicillins Allergy Verified 06/15/18 19:11 Antibiotics (CAN TAKE Z-PACK) Allergy Pt states Uncoded 06/15/18 19:11 is sensitive to many antibiotics but can take zpak - Home Medications Home Medications: Ambulatory Orders Lisinopril [Prinivil] 5 mg PO DAILY #30 tablet 07/10/15 Albuterol 0.083% Nebulizer Jolie [Ventolin 0.083% Nebulizer Soln -] 1 neb NEB Q6H PRN #30 vial 06/17/16 Tiotropium [place] [Spiriva] 1 inh IH DAILY #1 inh 06/17/16 Furosemide [Lasix -] 40 mg PO DAILY 06/15/18 Metoprolol Succinate 25 mg PO DAILY 06/15/18 Review of Systems - Review of Systems Constitutional: denies: Chills, Fever Eyes: denies: Recent Change in Vision HENT: denies: Nasal Congestion, Throat Pain Neck: denies: Stiffness, Tenderness Cardiovascular: reports: Shortness of Breath. denies: Chest Pain, Edema, Palpitations Respiratory: denies: Cough, Hemoptysis, SOB, Wheezing Gastrointestinal: denies: Abdominal Pain, Nausea, Vomiting Genitourinary: denies: Dysuria, Hematuria Neurological: denies: Dizziness, Headache Endocrine: denies: Unexplained Weight Loss Physical Exam Vital Sings: Vital Signs Temperature 97.9 F 06/16/18 13:31 Pulse Rate 96 H 06/16/18 13:31 Respiratory Rate 18 06/16/18 13:31 Blood Pressure 109/58 L 06/16/18 13:31 O2 Sat by Pulse Oximetry (%) 94 L 06/16/18 08:07 Constitutional: Yes: Calm Eyes: Yes: Conjunctiva Clear, EOM Intact HENT: Yes: Atraumatic, Normocephalic Neck: Yes: Supple, Trachea Midline Cardiovascular: Yes: Regular Rate and Rhythm Respiratory: Yes: Diminished (distant breath sounds). No: Wheezes ...Clubbing: No Gastrointestinal: Yes: Normal Bowel Sounds, Soft. No: Tenderness Edema: Yes Neurological: Yes: Alert, Oriented Labs: CBC, BMP 06/16/18 04:30 06/16/18 04:30 ABG Results ABG pH 7.34 (7.35-7.45) L 06/16/18 03:46 ABG pCO2 at Pt Temp 55.2 mmHg (35-45) H 06/16/18 03:46 ABG pO2 at Pt Temp 67.5 mmHg (70-100) L 06/16/18 03:46 ABG HCO3 29.1 meq/L (22-26) H 06/16/18 03:46 ABG O2 Sat (Measured) 91.7 % (90-98.9) 06/16/18 03:46 ABG O2 Content 18.5 % vol (15-22) 06/16/18 03:46 ABG Base Excess 2.5 meq/l (-2-2) H 06/16/18 03:46 Imaging - Results Chest X-ray: Report Reviewed, Image Reviewed Cat Scan: Report Reviewed, Image Reviewed (no PE, +emphysema) Problem List - Problems (1) COPD exacerbation Code(s): J44.1 - CHRONIC OBSTRUCTIVE PULMONARY DISEASE W (ACUTE) EXACERBATION (2) Cellulitis Code(s): L03.90 - CELLULITIS, UNSPECIFIED Qualifiers: Site of cellulitis: extremity Site of cellulitis of extremity: lower extremity Laterality: unspecified laterality Qualified Code(s): L03.119 - Cellulitis of unspecified part of limb (3) Congestive heart failure Code(s): I50.9 - HEART FAILURE, UNSPECIFIED (4) Hypoxia Code(s): R09.02 - HYPOXEMIA (5) Tobacco abuse Code(s): Z72.0 - TOBACCO USE Assessment/Plan Shortness of breath likely multifactorial Acute on Likely Chronic Hypoxic and Hypercapneic Respiratory Failure Acute COPD Exacerbation Acute on Chronic Systolic Heart Failure Cellulitis - offered short course of systemic steroids but per daughter pt does not tolerate steroids well - inhaled bronchodilators standing and PRN - O2 to keep SpO2 >90% - echocardiogram - continue lasix - monitor urine output, creatinine - antibiotics per ID - f/u cultures - DVT prophylaxis Thank you for this consult Armin Herbert MD
--- NOTE | 2018-06-16 15:56 | CONSULT ---
- Consultation REQUESTING PROVIDER: CONSULT REQUEST: We have been asked to surgically evaluate this patient for (b/ l venous stasis ulcers). PCP:Jorge Luis Karimi MD HISTORY OF PRESENT ILLNESS: 72 y/o F w/ PMHx HTN, LV systolic dysfunction, COPD now admitted w/ c/o leg swelling and foot wound. Of note, pt had rapid response called overnight due to tachycardia and mild desaturation to 92%, transferred to telemetry for closer monitoring. Pt reports ulcers began about 2 weeks ago. States she has not seen any doctors regarding the ulcers and has not been applying any treatments to them. Pts daughter states pt had a similar wound a year ago at which time she was admitted for Iv abx and wound care. Denies fevers/chills, n/v/d, h/o dvt/pe , prior evaluation by vascular surgery, use of compression socks. At baseline, pt lives in an apartment on her own. Daughter is close by and visit frequently. Pt reports being able to complete all her own adls. Ambulates without assistance. Currently smokes 1/2 ppd. PMHx: as above PSHx: appendectomy Home Medications Medication Instructions Recorded Lisinopril [Prinivil] 5 mg PO DAILY #30 tablet 07/10/15 Albuterol 0.083% Nebulizer Jolie 1 neb NEB Q6H PRN #30 vial 06/17/16 [Ventolin 0.083% Nebulizer Soln -] Tiotropium [place] [Spiriva] 1 inh IH DAILY #1 inh 06/17/16 Furosemide [Lasix -] 40 mg PO DAILY 06/15/18 Metoprolol Succinate 25 mg PO DAILY 06/15/18 Allergies Allergy/AdvReac Type Severity Reaction Status Date / Time Penicillins Allergy Verified 06/15/18 19:11 Antibiotics (CAN TAKE Z-PACK) Allergy Pt states Uncoded 06/15/18 19:11 is sensitive to many antibiotics but can take zpak REVIEW OF SYSTEMS: CONSTITUTIONAL: Absent: fever, chills CARDIOVASCULAR: Absent: chest pain GASTROINTESTINAL: Absent: abdominal pain PHYSICAL EXAM: GENERAL: Awake, alert, and fully oriented, in no acute distress. HEAD: Normal with no signs of trauma. LOWER EXTREMITIES: B/L Le's with 2+ pitting edema to knees, +wrinkling of skin b.l indicating prior edema. +hyperkeratosis b/l. R leg with large (8x8cm) ? dried blister well adhered to the skin. 5x5cm superficial ulcer at lateral aspect of calf with dried blood and mild fibrinous exudate. LLE with small superficial ulcer at lateral aspect of calf with dried blood. B/L les with moderate erythema. No foul odor froim ulcers. No palpable fluctance in b/l le' s. B/L toes with overgrown toenails and severe onychomycosis. Vasc: b/l dp with biphasic doppler signals. L PT biphasic, R PT not appreciated. Vital Signs Temperature 97.9 F 06/16/18 13:31 Pulse Rate 96 H 06/16/18 13:31 Respiratory Rate 18 06/16/18 13:31 Blood Pressure 109/58 L 06/16/18 13:31 O2 Sat by Pulse Oximetry (%) 94 L 06/16/18 08:07 Lab Results WBC 11.8 K/mm3 (4.0-10.0) H 06/16/18 04:30 RBC 4.63 M/mm3 (3.60-5.2) 06/16/18 04:30 Hgb 14.0 GM/dL (10.7-15.3) 06/16/18 04:30 Hct 43.2 % (32.4-45.2) 06/16/18 04:30 MCV 93.3 fl (80-96) 06/16/18 04:30 MCHC 32.4 g/dl (32.0-36.0) 06/16/18 04:30 RDW 15.1 % (11.6-15.6) 06/16/18 04:30 Plt Count 203 K/MM3 (134-434) 06/16/18 04:30 Sodium 141 mmol/L (136-145) 06/16/18 04:30 Potassium 4.9 mmol/L (3.5-5.1) 06/16/18 04:30 Chloride 106 mmol/L (98-107) 06/16/18 04:30 Carbon Dioxide 30 mmol/L (21-32) 06/16/18 04:30 Anion Gap 6 MMOL/L (8-16) L 06/16/18 04:30 BUN 19 mg/dL (7-18) H 06/16/18 04:30 Creatinine 1.1 mg/dL (0.55-1.3) 06/16/18 04:30 Random Glucose 87 mg/dL (74-106) 06/16/18 04:30 Calcium 9.0 mg/dL (8.5-10.1) 06/16/18 04:30 INR 1.13 (0.83-1.09) H 06/16/18 07:20 Vascular Duplex (06/16/18): Moderate atherosclerosis b/l le's with abnormal flow suggesting inflow disease Vascular Duplex (06/16/18): no dvt b/l les A/P: 72 y/o F w/ PMHx HTN, LV systolic dysfunction, COPD now admitted w/ c/o leg swelling and foot wound. B/L Les with edema, appears to be improving. + cellulitis and superficial venous stasis ulcers. -Continue IV abx -Agree with Topical Bactroban to ulcers, wrap with kerlix -Elevate b/l le's above level of heart while at rest -Discussed compression therapy with pt once cellulitis has resolved and continuing forward upon going home for prevention of further ulcers, information provided regarding where to purchase compression socks/other options for compression therapy. above d/w attending Dr Nevarez
--- NOTE | 2018-06-16 16:06 | ECHO ---
Name: KYRA GARCIA Exam:Adult Echocardiogram Study Date: 06/16/2018 02:24 PM Age: 72 yrs Reason For Study: R/O HYPOKINESUS Height: 63 in Weight: 127 lb BSA: 1.6 m2 MMode/2D Measurements & Calculations IVSd: 0.76 cm Ao root diam: 2.8 cm LVIDd: 4.3 cm LA dimension: 3.7 cm LVIDs: 3.4 cm LVPWd: 0.74 cm EDV(Teich): 83.2 ml ESV(Teich): 46.3 ml Doppler Measurements & Calculations MV E max isaiah: 39.5 cm/sec TR max isaiah: 198.7 cm/sec MV A max isaiah: 66.1 cm/sec TR max P.8 mmHg MV E/A: 0.60 MV dec time: 0.14 sec Procedure A complete two-dimensional transthoracic echocardiogram was performed (2D, M-mode, Doppler and color flow Doppler). Left Ventricle The left ventricle is normal in size. Left ventricular systolic function is severely reduced. Ejectio n Fraction = 25-30%. There is severe global hypokinesis of the left ventricle. Right Ventricle The right ventricle is not well visualized. Atria Normal left and right atrial size and function. Mitral Valve There is no mitral regurgitation noted. Tricuspid Valve There is trace tricuspid regurgitation. There was insufficient TR detected to calculate RV systolic p ressure. Aortic Valve No hemodynamically significant valvular aortic stenosis. No aortic regurgitation is present. Pulmonic Valve There is no pulmonic valvular regurgitation. Great Vessels The aortic root is normal size. Pericardium/Pleura There is no pericardial effusion. Interpretation Summary Left ventricular systolic function is severely reduced. There is severe global hypokinesis of the left ventricle. The right ventricle is not well visualized. There is trace tricuspid regurgitation. MD Rob Diaz 06/16/2018 04:06 PM
[2018-06-16] MEDS: GABAPENTIN 100 MG CAPSULE (FP) PO SCH ×3 (16:28→22:45)
[2018-06-16] MEDS: ASPIRIN 81 MG CHEWABLE TABLETS PO SCH (16:28)
[2018-06-16] MEDS: CEFAZOLIN 2 GM/D5W 2 GM/50 ML ML IVPB SCH ×2 (16:28→20:50)
[2018-06-16] MEDS: HEPARIN NA (PORCINE) 5,000 UNITS/ML 1ML VIAL SQ SCH ×2 (16:28→22:30)
[2018-06-16] MEDS: ATORVASTATIN CA 40 MG TABLET (FP) PO SCH ×2 (22:28→22:46)
[2018-06-16] MEDS: BUDESONIDE/FORMETEROL FUMARATE 160/4.5 mcg INHALER IH SCH (22:29)
[2018-06-17] MEDS: CEFAZOLIN 2 GM/D5W 2 GM/50 ML ML IVPB SCH ×4 (01:41→18:40)
[2018-06-17] MEDS: GABAPENTIN 100 MG CAPSULE (FP) PO SCH ×3 (06:19→21:11)
[2018-06-17] MEDS: HEPARIN NA (PORCINE) 5,000 UNITS/ML 1ML VIAL SQ SCH ×3 (06:19→21:10)
[2018-06-17 06:34] LABS: HEMATOCRIT 37.8 % (32.4-45.2); HEMOGLOBIN 12.1 GM/dL (10.7-15.3); MCH 30.3 pg (25.7-33.7); MEAN CELL VOLUME 94.8 fl (80-96); MEAN PLT VOLUME 9.1 fl (7.5-11.1); PLATELET COUNT 169 K/MM3 (134-434); RBC 3.99 M/mm3 (3.60-5.2); RDW 14.9 % (11.6-15.6); WHITE BLOOD COUNT 6.8 K/mm3 (4.0-10.0)
[2018-06-17] MEDS ORDERED: ACLIDINIUM BROMIDE IH SCH (07:00)
[2018-06-17 07:07] LABS: ALBUMIN 2.2 g/dl (3.4-5.0); ALK PHOS 104 U/L (45-117); ANION GAP 4 MMOL/L (8-16); BILIRUBIN,TOTAL 0.5 mg/dL (0.2-1); BLOOD UREA NITROGEN 23 mg/dL (7-18); CALCIUM 8.5 mg/dL (8.5-10.1); CHLORIDE 104 mmol/L (98-107); CO2 34 mmol/L (21-32); CREATININE 1.3 mg/dL (0.55-1.3); GLUCOSE,RANDOM 69 mg/dL (74-106); MAGNESIUM 2.2 mg/dL (1.8-2.4); PHOSPHOROUS 3.3 mg/dL (2.5-4.9); POTASSIUM 4.2 mmol/L (3.5-5.1); SGOT/AST 23 U/L (15-37); SGPT/ALT 16 U/L (13-61); SODIUM 142 mmol/L (136-145); TOT PROT 5.1 g/dl (6.4-8.2)
[2018-06-17] MEDS ORDERED: PT OWN MED DRAWER 7, Y5N ONE ×3 (09:46→18:24)
[2018-06-17] MEDS: LACTOBACILLUS ACIDOPHILUS 1 TABLET PO SCH (09:51)
[2018-06-17] MEDS: ASPIRIN 81 MG CHEWABLE TABLETS PO SCH (09:51)
[2018-06-17] MEDS: BUDESONIDE/FORMETEROL FUMARATE 160/4.5 mcg INHALER IH SCH ×2 (09:52→21:11)
[2018-06-17] MEDS: MUPIROCIN 2% TOPICAL OINTMENT 22 GM TUBE TP SCH ×2 (10:00→21:11)
[2018-06-17] MEDS ORDERED: LISINOPRIL 5 MG TABLET (FP) PO SCH (10:00)
[2018-06-17] MEDS ORDERED: metoPROLOL SUCCINATE 25 MG TAB.SR.24H (FP) PO SCH (10:00)
[2018-06-17] MEDS ORDERED: FUROSEMIDE 40 MG TABLET (FP) PO SCH (10:00)
--- NOTE | 2018-06-17 11:47 | CON.CARD ---
Cardiology Consult (text) - Consultation Consultation Note: cc: leg wounds hpi: 72 f hx syst chf, hld, copd, htn, here with chronic non healing leg wounds. No cp sob palps dizzy loc pnd orthopnea. +le edema and erythema bl. Sees dr tanner for cardio, has not f/u recently. pmh: per hpi psh: appendectomy social: +cigs fam: no premature cad ros: per hpi; no nvd fever cough vision changes, gib hematuria dysuria meds: Home Medications Medication Instructions Recorded Lisinopril [Prinivil] 5 mg PO DAILY #30 tablet 07/10/15 Albuterol 0.083% Nebulizer Jolie 1 neb NEB Q6H PRN #30 vial 06/17/16 [Ventolin 0.083% Nebulizer Soln -] Tiotropium [place] [Spiriva] 1 inh IH DAILY #1 inh 06/17/16 Furosemide [Lasix -] 40 mg PO DAILY 06/15/18 Metoprolol Succinate 25 mg PO DAILY 06/15/18 pe: Vital Signs Period Temp Pulse Resp BP Sys/Maldonado Pulse Ox Last 24 Hr 97 F-98.7 F 76-96 14-18 107-125/50-68 nad no jvd rrr s1s2 no mrg cta bl nl eff aaox3 chronic venous stasis changes of legs b/l with open wounds and erythema, nonpit edema abd nt nd pos bs no jaundice diaphoresis pos dp pt Laboratory Last Values WBC 6.8 K/mm3 (4.0-10.0) 06/17/18 05:30 RBC 3.99 M/mm3 (3.60-5.2) 06/17/18 05:30 Hgb 12.1 GM/dL (10.7-15.3) 06/17/18 05:30 Hct 37.8 % (32.4-45.2) 06/17/18 05:30 MCV 94.8 fl (80-96) 06/17/18 05:30 MCH 30.3 pg (25.7-33.7) 06/17/18 05:30 MCHC 32.0 g/dl (32.0-36.0) 06/17/18 05:30 RDW 14.9 % (11.6-15.6) 06/17/18 05:30 Plt Count 169 K/MM3 (134-434) 06/17/18 05:30 MPV 9.1 fl (7.5-11.1) 06/17/18 05:30 Absolute Neuts (auto) 10.2 K/mm3 (1.5-8.0) H 06/16/18 04:30 Neutrophils % 86.3 % (42.8-82.8) H 06/16/18 04:30 Lymphocytes % 5.2 % (8-40) L D 06/16/18 04:30 Monocytes % 7.8 % (3.8-10.2) 06/16/18 04:30 Eosinophils % 0.3 % (0-4.5) 06/16/18 04:30 Basophils % 0.4 % (0-2.0) 06/16/18 04:30 Nucleated RBC % 0 % (0-0) 06/16/18 04:30 ESR 29 mm/hr (0-30) 06/16/18 04:30 PT with INR 13.30 SEC (9.7-13.0) H 06/16/18 07:20 INR 1.13 (0.83-1.09) H 06/16/18 07:20 PTT (Actin FS) 36.4 SECONDS (25.2-36.5) 06/16/18 07:20 Puncture Site Right radial 06/16/18 03:46 ABG pH 7.34 (7.35-7.45) L 06/16/18 03:46 ABG pCO2 at Pt Temp 55.2 mmHg (35-45) H 06/16/18 03:46 ABG pO2 at Pt Temp 67.5 mmHg (70-100) L 06/16/18 03:46 ABG HCO3 29.1 meq/L (22-26) H 06/16/18 03:46 ABG O2 Sat (Measured) 91.7 % (90-98.9) 06/16/18 03:46 ABG O2 Content 18.5 % vol (15-22) 06/16/18 03:46 ABG Base Excess 2.5 meq/l (-2-2) H 06/16/18 03:46 Vijay Test Positive 06/16/18 03:46 O2 Delivery Device Nasal 06/16/18 03:46 Oxygen Flow Rate 2l 06/16/18 03:46 PEEP 0.0 cmH2O 06/16/18 03:46 Sodium 142 mmol/L (136-145) 06/17/18 05:30 Potassium 4.2 mmol/L (3.5-5.1) 06/17/18 05:30 Chloride 104 mmol/L (98-107) 06/17/18 05:30 Carbon Dioxide 34 mmol/L (21-32) H 06/17/18 05:30 Anion Gap 4 MMOL/L (8-16) L 06/17/18 05:30 BUN 23 mg/dL (7-18) H 06/17/18 05:30 Creatinine 1.3 mg/dL (0.55-1.3) 06/17/18 05:30 Creat Clearance w eGFR 40.49 (>60) 06/17/18 05:30 POC Glucometer 137.91699 UNITS (80-120) 06/15/18 22:53 Random Glucose 69 mg/dL (74-106) L 06/17/18 05:30 Calcium 8.5 mg/dL (8.5-10.1) 06/17/18 05:30 Phosphorus 3.3 mg/dL (2.5-4.9) 06/17/18 05:30 Magnesium 2.2 mg/dL (1.8-2.4) 06/17/18 05:30 Total Bilirubin 0.5 mg/dL (0.2-1) 06/17/18 05:30 AST 23 U/L (15-37) 06/17/18 05:30 ALT 16 U/L (13-61) 06/17/18 05:30 Alkaline Phosphatase 104 U/L (45-117) 06/17/18 05:30 C-Reactive Protein 5.9 MG/DL (0.00-0.3) H 06/16/18 04:30 B-Natriuretic Peptide 480.0 pg/ml (5-125) H 06/16/18 04:30 Total Protein 5.1 g/dl (6.4-8.2) L 06/17/18 05:30 Albumin 2.2 g/dl (3.4-5.0) L 06/17/18 05:30 Triglycerides 65 mg/dL (0-150) 06/16/18 07:20 Cholesterol 172 mg/dL (50-200) 06/16/18 07:20 Total LDL Cholesterol 83 mg/dL (5-100) 06/16/18 07:20 HDL Cholesterol 73 mg/dL (40-60) H 06/16/18 07:20 Influenza A (Rapid) Negative 06/16/18 04:30 Influenza B (Rapid) Negative 06/16/18 04:30 cta chest: no pe, no chf ecg: sinus tachy, nl intervals, no ischemic changes tele: sr echo 06/2015: lvef 35-40, global hk, mild tr, nl rvsp echo 06/2018: lvef 25-30, global hk, rv tds, no sig valve path a/p: 72 f hx syst chf, hld, copd, htn, here with chronic non healing leg wounds. le edema/venous insuff/cellulitis/ulcers: -cont abx per ID -cont lasix chronic syst chf: -no signs pulm edema or acute chf -cont po lasix for now -cont toprol, lisinopril hld: -cont statin htn: -cont home meds
[2018-06-17] MEDS: KETOCONOZOLE 2% TOPICAL CREAM 15 GM TUBE TP SCH (12:24)
[2018-06-17 13:02] VITALS: BMI 22.4
--- NOTE | 2018-06-17 13:46 | PN ---
Progress Note (short form) - Note Progress Note: Breathing feels a little better today. Less SOB and congested cough. No CP . Intake & Output 06/14/18 06/15/18 06/16/18 06/17/18 23:59 23:59 23:59 23:59 Intake Total 1260 50 Balance 1260 50 Weight 140 lb 127 lb 6.4 oz 127 lb Last Vital Signs Temp Pulse Resp BP Pulse Ox 98.7 F 96 H 18 116/52 L 94 L 06/17/18 13:27 06/17/18 13:27 06/17/18 13:27 06/17/18 13:27 06/16/18 08:07 Active Medications Albuterol Sulfate (Ventolin 0.083% Nebulizer Soln -) 1 amp NEB Q6H PRN PRN Reason: SHORT OF BREATH/WHEEZING Aspirin (Asa -) 81 mg PO DAILY [facility] Last Admin: 06/17/18 09:51 Dose: 81 mg Atorvastatin Calcium (Lipitor -) 40 mg PO HS [facility] Last Admin: 06/16/18 22:46 Dose: Not Given Budesonide/Formoterol Fumarate (Symbicort 160/4.5mcg -) 2 puff IH BID [facility] Last Admin: 06/17/18 09:52 Dose: 2 puff Furosemide (Lasix -) 40 mg PO DAILY [facility] Last Admin: 06/17/18 09:51 Dose: 40 mg Gabapentin (Neurontin -) 100 mg PO TID [facility] Last Admin: 06/17/18 06:19 Dose: Not Given Heparin Sodium (Porcine) (Heparin -) 5,000 unit SQ TID [facility] Last Admin: 06/17/18 06:19 Dose: 5,000 unit Cefazolin Sodium/Dextrose (Ancef 2 Gm Premixed Ivpb -) 2 gm in 50 mls @ 100 mls /hr IVPB Q8H-IV [facility] Last Admin: 06/17/18 09:50 Dose: 100 mls/hr Ketoconazole (Nizoral 2% Cream -) 1 applic TP DAILY [facility] Last Admin: 06/17/18 12:24 Dose: 1 applic Lactobacillus Acidophilus (Bacid -) 1 tab PO DAILY [facility] Last Admin: 06/17/18 09:51 Dose: 1 tab Lisinopril (Prinivil) 5 mg PO DAILY [facility] Last Admin: 06/17/18 09:51 Dose: 5 mg Metoprolol Succinate (Toprol Xl -) 12.5 mg PO DAILY [facility] Last Admin: 06/17/18 09:51 Dose: 12.5 mg Mupirocin (Bactroban 2% Ointment -) 1 applic TP BID [facility] Last Admin: 06/17/18 10:00 Dose: 1 applic Non-Formulary Medication (Aclidinium [place] [Tudorza Pressair]) 1 puff IH AM [facility] Last Admin: 06/17/18 06:19 Dose: 1 puff Constitutional: Yes: Mildly tachypneic at rest Eyes: Yes: Conjunctiva Clear, EOM Intact HENT: Yes: Atraumatic, Normocephalic Neck: Yes: Supple, Trachea Midline Cardiovascular: Yes: Regular Rate and Rhythm Respiratory: Yes: Diminished at the bases, No wheezes ...Clubbing: No Gastrointestinal: Yes: Normal Bowel Sounds, Soft. No: Tenderness Edema: Yes Neurological: Yes: Alert, Oriented Labs: Laboratory Results - last 24 hr 06/17/18 06/17/18 05:30 05:30 WBC 6.8 RBC 3.99 Hgb 12.1 Hct 37.8 MCV 94.8 MCH 30.3 MCHC 32.0 RDW 14.9 Plt Count 169 MPV 9.1 Sodium 142 Potassium 4.2 Chloride 104 Carbon Dioxide 34 H Anion Gap 4 L BUN 23 H Creatinine 1.3 Creat Clearance w eGFR 40.49 Random Glucose 69 L Calcium 8.5 Phosphorus 3.3 Magnesium 2.2 Total Bilirubin 0.5 AST 23 ALT 16 Alkaline Phosphatase 104 Total Protein 5.1 L Albumin 2.2 L Problem List - Problems (1) COPD exacerbation Code(s): J44.1 - CHRONIC OBSTRUCTIVE PULMONARY DISEASE W (ACUTE) EXACERBATION (2) Cellulitis Code(s): L03.90 - CELLULITIS, UNSPECIFIED Qualifiers: Site of cellulitis: extremity Site of cellulitis of extremity: lower extremity Laterality: unspecified laterality Qualified Code(s): L03.119 - Cellulitis of unspecified part of limb (3) Congestive heart failure Code(s): I50.9 - HEART FAILURE, UNSPECIFIED (4) Hypoxia Code(s): R09.02 - HYPOXEMIA (5) Tobacco abuse Code(s): Z72.0 - TOBACCO USE Assessment/Plan Shortness of breath: multifactorial Acute on Likely Chronic Hypoxic and Hypercapneic Respiratory Failure Acute COPD Exacerbation Acute on Chronic Systolic Heart Failure Cellulitis - Offered short course of systemic steroids but per patient/daughter, patient does not tolerate steroids well - Inhaled bronchodilators standing and PRN - O2 to keep SpO2 >90% - Lasix - Monitor urine output, creatinine - Antibiotics per ID - DVT prophylaxis Dr Silva
--- NOTE | 2018-06-17 14:48 | PN ---
Physical Exam: SUBJECTIVE: Patient seen and examined at bedside this morning. Endorses improvement in pain of her bilateral lower extremities. She denies fevers, chills overnight. Denies shortness of breath, cough chest pain, palpitations, abdominal pain, nausea, vomiting. OBJECTIVE: Vital Signs Period Temp Pulse Resp BP Sys/Maldonado Pulse Ox Last 24 Hr 97 F-98.7 F 73-96 14-18 107-125/50-68 96 GENERAL: The patient is awake, alert, and fully oriented, in no acute distress. HEAD: Normocephalic, atraumatic EYES: PERRL, extraocular movements intact, sclera anicteric, conjunctiva clear without injection B/L. ENT: Oropharynx clear without exudates, moist mucous membranes. NECK: Supple without lymphadenopathy. No JVD noted. LUNGS: Good inspiratory effort, poor air entry B/L. No wheezes, no crackles auscultated. No accessory muscle use. HEART: Regular rate and rhythm, S1, S2 without murmur, rub or gallop. ABDOMEN: Soft, nontender, nondistended. Normoactive bowel sounds X4 quadrants. No guarding, no rebound tenderness. EXTREMITIES: 2+ radial pusles B/L. Lower extremities 1+ pitting edema, tender with dry flaking skin. 5cm X 5cm ulcer noted along right lateral lower extremity , draining purulent discharge. Two 4cm X 4cm ulcers along left lateral lower extremity, draining purulent discharge. Onychomycosis noted B/L. NEUROLOGICAL: Cranial nerves II through XII grossly intact. Normal speech. Strength 5/5 B/L upper extremities, strength 4/5 B/L lower extremities. PSYCH: Normal mood, normal affect upon my encounter today. Laboratory Results - last 24 hr 06/17/18 06/17/18 05:30 05:30 WBC 6.8 RBC 3.99 Hgb 12.1 Hct 37.8 MCV 94.8 MCH 30.3 MCHC 32.0 RDW 14.9 Plt Count 169 MPV 9.1 Sodium 142 Potassium 4.2 Chloride 104 Carbon Dioxide 34 H Anion Gap 4 L BUN 23 H Creatinine 1.3 Creat Clearance w eGFR 40.49 Random Glucose 69 L Calcium 8.5 Phosphorus 3.3 Magnesium 2.2 Total Bilirubin 0.5 AST 23 ALT 16 Alkaline Phosphatase 104 Total Protein 5.1 L Albumin 2.2 L Active Medications Generic Name Dose Route Start Last Admin Trade Name Freq PRN Reason Stop Dose Admin Albuterol Sulfate 1 amp 06/16/18 13:05 Ventolin 0.083% Nebulizer Soln - NEB Q6H PRN SHORT OF BREATH/WHEEZING Aspirin 81 mg 06/16/18 15:45 06/17/18 09:51 Asa - PO 81 mg DAILY [facility] Administration Atorvastatin Calcium 40 mg 06/16/18 22:00 06/16/18 22:46 Lipitor - PO Not Given HS [facility] Budesonide/Formoterol Fumarate 2 puff 06/16/18 22:00 06/17/18 09:52 Symbicort 160/4.5mcg - IH 2 puff BID [facility] Administration Furosemide 40 mg 06/17/18 10:00 06/17/18 09:51 Lasix - PO 40 mg DAILY [facility] Administration Gabapentin 100 mg 06/16/18 14:00 06/17/18 14:12 Neurontin - PO 100 mg TID [facility] Administration Heparin Sodium (Porcine) 5,000 unit 06/16/18 14:00 06/17/18 14:12 Heparin - SQ 5,000 unit TID [facility] Administration Cefazolin Sodium/Dextrose 2 gm in 50 mls @ 100 mls/hr 06/16/18 15:45 09:50 Ancef 2 Gm Premixed Ivpb - IVPB 100 mls/hr Q8H-IV [facility] Administration Ketoconazole 1 applic 06/16/18 16:33 06/17/18 12:24 Nizoral 2% Cream - TP 1 applic DAILY [facility] Administration Lactobacillus Acidophilus 1 tab 06/16/18 12:15 06/17/18 09:51 Bacid - PO 1 tab DAILY [facility] Administration Lisinopril 5 mg 06/17/18 10:00 06/17/18 09:51 Prinivil PO 5 mg DAILY [facility] Administration Metoprolol Succinate 12.5 mg 06/17/18 10:00 06/17/18 09:51 Toprol Xl - PO 12.5 mg DAILY [facility] Administration Mupirocin 1 applic 06/16/18 12:15 06/17/18 10:00 Bactroban 2% Ointment - TP 1 applic BID [facility] Administration Non-Formulary Medication 1 puff 06/17/18 07:00 06/17/18 06:19 Aclidinium [place] [Tudorza Pressair] IH 1 puff AM [facility] Administration IMAGING -Lower extremity arterial doppler shows moderate atherosclerotic disease with abnormal monophasic flow bilateraly. -Lower extremity venous duplex shows no evidence of DVT ASSESSMENT/PLAN: Patient is a 72 year old female with history of chronic lower extremity venous stasis, hypertension, COPD, and congestive heart failure presents with complaint of bilateral lower extremity wounds with purulent drainage. Lower extremity venous stasis wounds -Wounds likely secondary to long standing venous stasis. -Cefazolin 2grams IV Q8H (day #2) -Wound cultures right leg (06/16) grow lactose fermenting gram negative bacilli , non lactose fermenting gram negative bacilli, group D strep/ enterococcus, diphtheroid/ corynebacterium -Wound cultures left leg (06/16) grow lactose fermenting gram negative bacilli -Bactroban 2% ointment applied BID prior to dressing application -Pain control with gabapentin 100mg PO TID -Vascular surgery, wound care consult (Dr. Nevarez) -ID consult (Dr. Santiago) appreciated. Lower extremity fungal infection, onychomycosis -Ketoconazole topical ointment 1 application TP daily -Podiatry consult (Dr. Pierre) Congestive heart failure -Cardiac ECHO shows: Severely reduced EF = 25-20%, with LV hypokinesis. -Lisinopril 5mg PO daily -Metoprolol 12.5mg PO daily -Lasix 40mg PO daily -Cardiology consult (Dr. Duvall) appreciated -Daily weights, strict intake and output. Hypertension -Patient is receiving Lisinopril, Metoprolol, Lasix. Hyperlipidemia -Atorvastatin 40mg PO HS COPD -Symbicort 160/ 4.5mcg 2puff BID -Tudorza 1 puff daily -Albuterol nebulizer 1 amp Q6H PRN for shortness of breath -Pulmonology consult (Dr. Phillips) FEN -No IV fluids indicated. -Hypomagnesemia repleted. Follow CMP -Sodium controlled diet Prophylaxis -Heparin 5000u subq TID Disposition -Patient admitted for inpatient care in medical- surgical floor Visit type - Emergency Visit Emergency Visit: Yes ED Registration Date: 06/16/18 Care time: The patient presented to the Emergency Department on the above date and was hospitalized for further evaluation of their emergent condition. - New Patient This patient is new to me today: No - Critical Care Critical Care patient: No - Discharge Referral Referred to [facility] No
--- NOTE | 2018-06-17 17:01 | PN ---
Progress Note, Physician History of Present Illness: No c/o LE pain No fever/ chills Tolerating cephalosporin Afebrile Wound c/s mixed organisms BC (-) - Current Medication List Current Medications: Active Medications Albuterol Sulfate (Ventolin 0.083% Nebulizer Soln -) 1 amp NEB Q6H PRN PRN Reason: SHORT OF BREATH/WHEEZING Aspirin (Asa -) 81 mg PO DAILY [facility] Last Admin: 06/17/18 09:51 Dose: 81 mg Atorvastatin Calcium (Lipitor -) 40 mg PO HS [facility] Last Admin: 06/16/18 22:46 Dose: Not Given Budesonide/Formoterol Fumarate (Symbicort 160/4.5mcg -) 2 puff IH BID [facility] Last Admin: 06/17/18 09:52 Dose: 2 puff Furosemide (Lasix -) 40 mg PO DAILY [facility] Last Admin: 06/17/18 09:51 Dose: 40 mg Gabapentin (Neurontin -) 100 mg PO TID [facility] Last Admin: 06/17/18 14:12 Dose: 100 mg Heparin Sodium (Porcine) (Heparin -) 5,000 unit SQ TID [facility] Last Admin: 06/17/18 14:12 Dose: 5,000 unit Cefazolin Sodium/Dextrose (Ancef 2 Gm Premixed Ivpb -) 2 gm in 50 mls @ 100 mls /hr IVPB Q8H-IV [facility] Last Admin: 06/17/18 09:50 Dose: 100 mls/hr Ketoconazole (Nizoral 2% Cream -) 1 applic TP DAILY [facility] Last Admin: 06/17/18 12:24 Dose: 1 applic Lactobacillus Acidophilus (Bacid -) 1 tab PO DAILY [facility] Last Admin: 06/17/18 09:51 Dose: 1 tab Lisinopril (Prinivil) 5 mg PO DAILY [facility] Last Admin: 06/17/18 09:51 Dose: 5 mg Metoprolol Succinate (Toprol Xl -) 12.5 mg PO DAILY [facility] Last Admin: 06/17/18 09:51 Dose: 12.5 mg Mupirocin (Bactroban 2% Ointment -) 1 applic TP BID [facility] Last Admin: 06/17/18 10:00 Dose: 1 applic Non-Formulary Medication (Aclidinium [place] [Tudorza Pressair]) 1 puff IH AM [facility] Last Admin: 06/17/18 06:19 Dose: 1 puff - Objective Vital Signs: Vital Signs Temperature 98.7 F 06/17/18 13:27 Pulse Rate 96 H 06/17/18 13:27 Respiratory Rate 18 06/17/18 13:27 Blood Pressure 116/52 L 06/17/18 13:27 O2 Sat by Pulse Oximetry (%) 96 06/17/18 09:00 Constitutional: Yes: No Distress Eyes: Yes: Conjunctiva Clear Cardiovascular: Yes: Regular Rate and Rhythm, S1, S2 Respiratory: Yes: CTA Bilaterally Gastrointestinal: Yes: Normal Bowel Sounds, Soft. No: Tenderness Extremities: Yes: Other (slight decrease in edema and erythema LE bilaterally; + malodorous drainage) Labs: CBC, BMP 06/17/18 05:30 06/17/18 05:30 INR, PTT INR 1.13 (0.83-1.09) H 06/16/18 07:20 Assessment/Plan Bilateral LE cellulitis/ infected stasis ulcers Chronic venous stasis dermatitis PCN allergy Continue cefazolin, local care
--- NOTE | 2018-06-17 17:45 | PN ---
Teaching Attending Note Name of Resident: Tesfaye Gomez ATTENDING PHYSICIAN STATEMENT I saw and evaluated the patient. I reviewed the resident's note and discussed the case with the resident. I agree with the resident's findings and plan as documented. SUBJECTIVE: Patient denies SOB. Pain in legs is a little better. OBJECTIVE: Vital Signs Period Temp Pulse Resp BP Sys/[place]ado Pulse Ox Last 24 Hr 97 F-98.7 F 73-96 17-18 107-125/52-68 96 HEART: S1S2, RRR LUNGS: Decreased BS bilaterally ABDOMEN: Soft, non-tender, non-distended, normal BS EXTREMITIES: Bilateral chronic venous stasis changes with ulcers of both legs, erythema and scaling of both feet and legs up to knees, thickened yellow nails on all toes Laboratory Results - last 24 hr 06/17/18 06/17/18 05:30 05:30 WBC 6.8 RBC 3.99 Hgb 12.1 Hct 37.8 MCV 94.8 MCH 30.3 MCHC 32.0 RDW 14.9 Plt Count 169 MPV 9.1 Sodium 142 Potassium 4.2 Chloride 104 Carbon Dioxide 34 H Anion Gap 4 L BUN 23 H Creatinine 1.3 Creat Clearance w eGFR 40.49 Random Glucose 69 L Calcium 8.5 Phosphorus 3.3 Magnesium 2.2 Total Bilirubin 0.5 AST 23 ALT 16 Alkaline Phosphatase 104 Total Protein 5.1 L Albumin 2.2 L Current Medications Generic Name Dose Route Start Last Admin Trade Name Freq PRN Reason Stop Dose Admin Albuterol Sulfate 1 amp 06/16/18 13:05 Ventolin 0.083% Nebulizer Soln - NEB Q6H PRN SHORT OF BREATH/WHEEZING Aspirin 81 mg 06/16/18 15:45 06/17/18 09:51 Asa - PO 81 mg DAILY ROSE Administration Atorvastatin Calcium 40 mg 06/16/18 22:00 06/16/18 22:46 Lipitor - PO Not Given HS ROSE Budesonide/Formoterol Fumarate 2 puff 06/16/18 22:00 06/17/18 09:52 Symbicort 160/4.5mcg - IH 2 puff BID ROSE Administration Furosemide 40 mg 06/17/18 10:00 06/17/18 09:51 Lasix - PO 40 mg DAILY ROSE Administration Gabapentin 100 mg 06/16/18 14:00 06/17/18 14:12 Neurontin - PO 100 mg TID ROSE Administration Heparin Sodium (Porcine) 5,000 unit 06/16/18 14:00 06/17/18 14:12 Heparin - SQ 5,000 unit TID ROSE Administration Cefazolin Sodium/Dextrose 2 gm in 50 mls @ 100 mls/hr 06/16/18 15:45 17:16 Ancef 2 Gm Premixed Ivpb - IVPB 100 mls/hr Q8H-IV ROSE Administration Ketoconazole 1 applic 06/16/18 16:33 06/17/18 12:24 Nizoral 2% Cream - TP 1 applic DAILY [facility] Administration Lactobacillus Acidophilus 1 tab 06/16/18 12:15 06/17/18 09:51 Bacid - PO 1 tab DAILY [facility] Administration Lisinopril 5 mg 06/17/18 10:00 06/17/18 09:51 Prinivil PO 5 mg DAILY [facility] Administration Metoprolol Succinate 12.5 mg 06/17/18 10:00 06/17/18 09:51 Toprol Xl - PO 12.5 mg DAILY [facility] Administration Mupirocin 1 applic 06/16/18 12:15 06/17/18 10:00 Bactroban 2% Ointment - TP 1 applic BID [facility] Administration Non-Formulary Medication 1 puff 06/17/18 07:00 06/17/18 06:19 Aclidinium [place] [Tudorza Pressair] IH 1 puff AM ROSE Administration ASSESSMENT AND PLAN: This is a 72 year old woman with a history of venous stasis, chronic systolic heart failure, hypertension, hyperlipidemia, COPD who presented with pain and ulcers of both legs. 1. Infected venous stasis ulcers of both legs - Continue Ancef, topical Bactroban to ulcers, topical ketoconazole to feet - Arterial duplex shows bilateral moderate atherosclerotic disease with abnormal flow - Venous dopplers show no evidence of DVT 2. Onychomycosis of toenails with fungal skin infection of feet and legs - Continue topical ketoconazole - Podiatry consult 3. COPD - Stable - Continue Symbicort, Tudorza, albuterol as needed 4. HTN - Continue Toprol XL, Lisinopril, Lasix 5. Hyperlipidemia - Continue Lipitor 6. Chronic systolic heart failure - Stable - Echo shows EF 25-30%, global hypokinesis of LV, trace TR - Continue Lasix, Lisinopril, Toprol XL 7. Hypomagnesemia - Improved
[2018-06-17] MEDS: ATORVASTATIN CA 40 MG TABLET (FP) PO SCH (21:11)
[2018-06-18] MEDS: CEFAZOLIN 2 GM/D5W 2 GM/50 ML ML IVPB SCH ×2 (02:04→10:36)
[2018-06-18] MEDS: HEPARIN NA (PORCINE) 5,000 UNITS/ML 1ML VIAL SQ SCH ×3 (06:18→21:22)
[2018-06-18] MEDS: GABAPENTIN 100 MG CAPSULE (FP) PO SCH ×3 (06:18→21:21)
[2018-06-18 08:16] LABS: HEMATOCRIT 36.9 % (32.4-45.2); HEMOGLOBIN 11.8 GM/dL (10.7-15.3); MCH 30.5 pg (25.7-33.7); MEAN CELL VOLUME 95.1 fl (80-96); MEAN PLT VOLUME 8.8 fl (7.5-11.1); PLATELET COUNT 167 K/MM3 (134-434); RBC 3.88 M/mm3 (3.60-5.2); RDW 15.2 % (11.6-15.6); WHITE BLOOD COUNT 5.9 K/mm3 (4.0-10.0)
[2018-06-18 09:20] LABS: ALBUMIN 2.1 g/dl (3.4-5.0); ALK PHOS 105 U/L (45-117); ANION GAP 6 MMOL/L (8-16); BILIRUBIN,TOTAL 0.6 mg/dL (0.2-1); BLOOD UREA NITROGEN 22 mg/dL (7-18); CALCIUM 8.3 mg/dL (8.5-10.1); CHLORIDE 100 mmol/L (98-107); CO2 32 mmol/L (21-32); CREATININE 1.4 mg/dL (0.55-1.3); GLUCOSE,RANDOM 135 mg/dL (74-106); POTASSIUM 3.8 mmol/L (3.5-5.1); SGOT/AST 27 U/L (15-37); SGPT/ALT 11 U/L (13-61); SODIUM 138 mmol/L (136-145)
[2018-06-18] MEDS: FUROSEMIDE 40 MG TABLET (FP) PO SCH (10:36)
[2018-06-18] MEDS: LISINOPRIL 5 MG TABLET (FP) PO SCH (10:36)
[2018-06-18] MEDS: LACTOBACILLUS ACIDOPHILUS 1 TABLET PO SCH (10:36)
[2018-06-18] MEDS: ASPIRIN 81 MG CHEWABLE TABLETS PO SCH (10:36)
--- NOTE | 2018-06-18 10:36 | PN ---
Progress Note (short form) - Note Progress Note: s: no cp sob palps dizzy o: Vital Signs Period Temp Pulse Resp BP Sys/[place] Pulse Ox Last 24 Hr 98.0 F-99.1 F 76-99 18-18 109-153/52-98 96 nad no jvd rrr s1s2 no mrg cta bl nl eff aaox3 chronic venous stasis changes of legs b/l with open wounds and erythema, nonpit edema abd nt nd pos bs no jaundice diaphoresis Current Medications Generic Name Dose Route Start Last Admin Trade Name Freq PRN Reason Stop Dose Admin Albuterol Sulfate 1 amp 06/17/18 17:53 Ventolin 0.083% Nebulizer Soln - NEB Q6H PRN SHORT OF BREATH/WHEEZING Aspirin 81 mg 06/16/18 15:45 06/17/18 09:51 Asa - PO 81 mg DAILY RO[facility] Administration Atorvastatin Calcium 40 mg 06/16/18 22:00 06/17/18 21:11 Lipitor - PO 40 mg HS ROSE Administration Budesonide/Formoterol Fumarate 2 puff 06/17/18 22:00 06/17/18 21:11 Symbicort 160/4.5mcg - IH 2 puff BID [facility] Administration Furosemide 40 mg 06/18/18 10:00 Lasix - PO DAILY [facility] Gabapentin 100 mg 06/17/18 22:00 06/18/18 06:18 Neurontin - PO 100 mg TID ROSE Administration Heparin Sodium (Porcine) 5,000 unit 06/17/18 22:00 06/18/18 06:18 Heparin - SQ 5,000 unit TID RO[facility] Administration Cefazolin Sodium/Dextrose 2 gm in 50 mls @ 100 mls/hr 06/17/18 18:00 02:04 Ancef 2 Gm Premixed Ivpb - IVPB 100 mls/hr Q8H-IV [facility] Administration Ketoconazole 1 applic 06/16/18 16:33 06/17/18 12:24 Nizoral 2% Cream - TP 1 applic DAILY ROSE Administration Lactobacillus Acidophilus 1 tab 06/18/18 10:00 Bacid - PO DAILY [facility] Lisinopril 5 mg 06/18/18 10:00 Prinivil PO DAILY RO[facility] Metoprolol Succinate 12.5 mg 06/18/18 10:00 Toprol Xl - PO DAILY [facility] Mupirocin 1 applic 06/17/18 22:00 06/17/18 21:11 Bactroban 2% Ointment - TP Not Given BID [facility] Non-Formulary Medication 1 puff 06/18/18 07:00 Aclidinium [place] [Tudorza Pressair] IH AM [facility] CBC, BMP 06/18/18 07:00 06/18/18 07:00 cta chest: no pe, no chf ecg: sinus tachy, nl intervals, no ischemic changes echo 06/2015: lvef 35-40, global hk, mild tr, nl rvsp echo 06/2018: lvef 25-30, global hk, rv tds, no sig valve path a/p: 72 f hx syst chf, hld, copd, htn, here with chronic non healing leg wounds. le edema/venous insuff/cellulitis/ulcers: -cont abx per ID -cont lasix po chronic syst chf: -no signs pulm edema or acute chf -cont po lasix for now -cont toprol, lisinopril hld: -cont statin htn: -cont home meds
[2018-06-18] MEDS: KETOCONOZOLE 2% TOPICAL CREAM 15 GM TUBE TP SCH (10:37)
[2018-06-18] MEDS: metoPROLOL SUCCINATE 25 MG TAB.SR.24H (FP) PO SCH (10:38)
[2018-06-18] MEDS: MUPIROCIN 2% TOPICAL OINTMENT 22 GM TUBE TP SCH ×2 (10:38→21:22)
[2018-06-18] MEDS: BUDESONIDE/FORMETEROL FUMARATE 160/4.5 mcg INHALER IH SCH ×2 (10:38→21:21)
--- NOTE | 2018-06-18 10:41 | PN ---
Progress Note (short form) - Note Progress Note: no new change she has pain in legs but slightly better than before has no fever podiatry awaiting Vital Signs Period Temp Pulse Resp BP Sys/[place] Pulse Ox Last 24 Hr 98.0 F-99.1 F 76-99 18-18 109-153/52-98 96 Heent no abnormality heent no jvd heart soft heart sounds abd soft and non tender ext she has mild edema both legs , heavy nail growth and wound are dirty and dressing place neuro alert and awake and oriented Laboratory Results - last 24 hr 06/18/18 06/18/18 07:00 07:00 WBC 5.9 RBC 3.88 Hgb 11.8 Hct 36.9 MCV 95.1 MCH 30.5 MCHC 32.0 RDW 15.2 Plt Count 167 MPV 8.8 Sodium 138 Potassium 3.8 Chloride 100 Carbon Dioxide 32 Anion Gap 6 L BUN 22 H Creatinine 1.4 H Creat Clearance w eGFR 37.18 Random Glucose 135 H Calcium 8.3 L Total Bilirubin 0.6 AST 27 ALT 11 L Alkaline Phosphatase 105 Total Protein 5.0 L Albumin 2.1 L Current Medications Generic Name Dose Route Start Last Admin Trade Name Freq PRN Reason Stop Dose Admin Albuterol Sulfate 1 amp 06/17/18 17:53 Ventolin 0.083% Nebulizer Soln - NEB Q6H PRN SHORT OF BREATH/WHEEZING Aspirin 81 mg 06/16/18 15:45 06/18/18 10:36 Asa - PO 81 mg DAILY ROSE Administration Atorvastatin Calcium 40 mg 06/16/18 22:00 06/17/18 21:11 Lipitor - PO 40 mg HS ROSE Administration Budesonide/Formoterol Fumarate 2 puff 06/17/18 22:00 06/18/18 10:38 Symbicort 160/4.5mcg - IH 2 puff BID ROSE Administration Furosemide 40 mg 06/18/18 10:00 06/18/18 10:36 Lasix - PO 40 mg DAILY ROSE Administration Gabapentin 100 mg 06/17/18 22:00 06/18/18 06:18 Neurontin - PO 100 mg TID ROSE Administration Heparin Sodium (Porcine) 5,000 unit 06/17/18 22:00 06/18/18 06:18 Heparin - SQ 5,000 unit TID ROSE Administration Cefazolin Sodium/Dextrose 2 gm in 50 mls @ 100 mls/hr 06/17/18 18:00 10:36 Ancef 2 Gm Premixed Ivpb - IVPB 100 mls/hr Q8H-IV [facility] Administration Ketoconazole 1 applic 06/16/18 16:33 06/18/18 10:37 Nizoral 2% Cream - TP 1 applic DAILY RO[facility] Administration Lactobacillus Acidophilus 1 tab 06/18/18 10:00 06/18/18 10:36 Bacid - PO 1 tab DAILY RO[facility] Administration Lisinopril 5 mg 06/18/18 10:00 06/18/18 10:36 Prinivil PO 5 mg DAILY ROSE Administration Metoprolol Succinate 12.5 mg 06/18/18 10:00 06/18/18 10:38 Toprol Xl - PO 12.5 mg DAILY RO[facility] Administration Mupirocin 1 applic 06/17/18 22:00 06/18/18 10:38 Bactroban 2% Ointment - TP 1 applic BID ROSE Administration Non-Formulary Medication 1 puff 06/18/18 07:00 Aclidinium [place] [Tudorza Pressair] IH AM RO[facility] All Active Problems Cellulitis (Acute) Acute on chronic respiratory failure with hypoxemia (Acute) COPD (chronic obstructive pulmonary disease) (Acute) COPD exacerbation (Acute) Cellulitis of both lower extremities (Acute) Congestive heart failure (Acute) Edema (Acute) Hx of antibiotic allergy (Acute) Hypoxia (Acute) Lower extremity edema (Acute) Lung nodule (Acute) Shortness of breath (Acute) Tobacco abuse (Acute) Tobacco abuse counseling (Acute) Venous stasis dermatitis of both lower extremities (Acute) ASSESSMENT AND PLAN: This is a 72 year old woman with a history of venous stasis, chronic systolic heart failure, hypertension, hyperlipidemia, COPD who presented with pain and ulcers of both legs. 1. Infected venous stasis ulcers of both legs - Continue Ancef, topical Bactroban to ulcers, topical ketoconazole to feet 2. Onychomycosis of toenails with fungal skin infection of feet and legs - Continue topical ketoconazole - Podiatry consult 3. COPD - Stable - Continue Symbicort, Tudorza, albuterol as needed 4. HTN - Continue Toprol XL, Lisinopril, Lasix 5. Hyperlipidemia - Continue Lipitor 6. Chronic systolic heart failure - Stable - Echo shows EF 25-30%, global hypokinesis of LV, trace TR - Continue Lasix, Lisinopril, Toprol XL 7.slight jump in creatinine - will just observe bc it is only 0.1 and possibly due to lasix and heart failure
--- NOTE | 2018-06-18 13:03 | PN ---
Progress Note, Physician History of Present Illness: PULMONARY ALERT,FEELING BETTER,LESS DYSPNEIC - Current Medication List Current Medications: Active Medications Albuterol Sulfate (Ventolin 0.083% Nebulizer Soln -) 1 amp NEB Q6H PRN PRN Reason: SHORT OF BREATH/WHEEZING Aspirin (Asa -) [address] [facility] Last Admin: 06/18/18 10:36 Dose: 81 mg Atorvastatin Calcium (Lipitor -) [address] [facility] Last Admin: 06/17/18 21:11 Dose: 40 mg Budesonide/Formoterol Fumarate (Symbicort 160/4.5mcg -) [address] [facility] Last Admin: 06/18/18 10:38 Dose: 2 puff Furosemide (Lasix -) [address] [facility] Last Admin: 06/18/18 10:36 Dose: 40 mg Gabapentin (Neurontin -) [address] [facility] Last Admin: 06/18/18 06:18 Dose: 100 mg Heparin Sodium (Porcine) (Heparin -) 5,[address] [facility] Last Admin: 06/18/18 06:18 Dose: 5,000 unit Cefazolin Sodium/Dextrose (Ancef 2 Gm Premixed Ivpb -) 2 gm in 50 mls @ 100 mls /hr IVPB Q8H-IV [facility] Last Admin: 06/18/18 10:36 Dose: 100 mls/hr Ketoconazole (Nizoral 2% Cream -) [address] [facility] Last Admin: 06/18/18 10:37 Dose: 1 applic Lactobacillus Acidophilus (Bacid -) [address] [facility] Last Admin: 06/18/18 10:36 Dose: 1 tab Lisinopril (Prinivil) [address] [facility] Last Admin: 06/18/18 10:36 Dose: 5 mg Metoprolol Succinate (Toprol Xl -) 12.[address] [facility] Last Admin: 06/18/18 10:38 Dose: 12.5 mg Mupirocin (Bactroban 2% Ointment -) [address] [facility] Last Admin: 06/18/18 10:38 Dose: 1 applic Non-Formulary Medication (Aclidinium [place] [Tudorza Pressair]) [address] [facility] - Objective Vital Signs: Vital Signs Temperature 98.6 F 06/18/18 09:30 Pulse Rate 76 06/18/18 09:30 Respiratory Rate 18 06/18/18 09:30 Blood Pressure 109/55 L 06/18/18 09:30 O2 Sat by Pulse Oximetry (%) 93 L 06/18/18 10:00 Constitutional: Yes: Calm, Thin Eyes: Yes: WNL, Occular Prosthesis Neck: Yes: WNL Cardiovascular: Yes: Regular Rate and Rhythm, S1, S2 Respiratory: Yes: Diminished, Rhonchi (FEW RHONCHI) Gastrointestinal: Yes: Normal Bowel Sounds, Soft Extremities: Yes: WNL Edema: Yes Labs: CBC, BMP 06/18/18 07:00 06/18/18 07:00 INR, PTT INR 1.13 (0.83-1.09) H 06/16/18 07:20 Problem List - Problems (1) Acute on chronic respiratory failure with hypoxia and hypercapnia Code(s): J96.21 - ACUTE AND CHRONIC RESPIRATORY FAILURE WITH HYPOXIA; J96.22 - ACUTE AND CHRONIC RESPIRATORY FAILURE WITH HYPERCAPNIA Assessment/Plan Problem List - Problems (1) COPD exacerbation Code(s): J44.1 - CHRONIC OBSTRUCTIVE PULMONARY DISEASE W (ACUTE) EXACERBATION (2) Cellulitis Code(s): L03.90 - CELLULITIS, UNSPECIFIED Qualifiers: Site of cellulitis: extremity Site of cellulitis of extremity: lower extremity Laterality: unspecified laterality Qualified Code(s): L03.119 - Cellulitis of unspecified part of limb (3) Congestive heart failure Code(s): I50.9 - HEART FAILURE, UNSPECIFIED (4) Hypoxia Code(s): R09.02 - HYPOXEMIA (5) Tobacco abuse Code(s): Z72.0 - TOBACCO USE Assessment/Plan Shortness of breath Acute on Likely Chronic Hypoxic and Hypercapneic Respiratory Failure Acute COPD Exacerbation Acute on Chronic Systolic Heart Failure Cellulitis - Offered short course of systemic steroids but per patient/daughter, patient does not tolerate steroids well - Inhaled bronchodilators standing and PRN - O2 to keep SpO2 >90% - Lasix - Monitor urine output, creatinine - Antibiotics per ID - DVT prophylaxis DR LEMON
--- NOTE | 2018-06-18 14:47 | PN ---
Progress Note (short form) - Note Progress Note: doing well no complaints reports still with draining from her legs Vital Signs Period Temp Pulse Resp BP Sys/[place] Pulse Ox Last 24 Hr 98.0 F-99.1 F 76-99 18-18 109-153/55-98 93-96 cor-rrr lungs clear abd soft,nt legs are bandaged CBC, BMP 06/18/18 07:00 06/18/18 07:00 Microbiology 06/16/18 13:05 Blood - Peripheral Venous Blood Culture - Preliminary NO GROWTH OBTAINED AFTER 48 HOURS, INCUBATION TO CONTINUE FOR 3 DAYS. 06/16/18 13:00 Blood - Peripheral Venous Blood Culture - Preliminary NO GROWTH OBTAINED AFTER 48 HOURS, INCUBATION TO CONTINUE FOR 3 DAYS. 06/16/18 10:00 Leg - Right Lower Gram Stain - Final 06/16/18 10:00 Leg - Right Lower Wound Culture - Final Klebsiella Oxytoca Proteus Vulgaris Enterococcus Avium Diphtheroid/Corynebacterium 06/16/18 13:55 Leg - Left Lower Gram Stain - Final 06/16/18 13:55 Leg - Left Lower Wound Culture - Final Klebsiella Oxytoca Alpha Hemolytic Streptococcus Diphtheroid/Corynebacterium a/p bilateral cellulitis venous stasis pen allergy d/c cefazolin switch to ceftriaxone
[2018-06-18] MEDS ORDERED: DEXTROSE 5%-WATER 100 ML IVPB ONE (14:59)
[2018-06-18] MEDS: CEFTRIAXONE 2 GM in DEXTROSE 5%-WATER 100 ML IVPB SCH (15:09)
[2018-06-18] MEDS: ATORVASTATIN CA 40 MG TABLET (FP) PO SCH (21:21)
[2018-06-19] MEDS: HEPARIN NA (PORCINE) 5,000 UNITS/ML 1ML VIAL SQ SCH ×3 (05:46→21:15)
[2018-06-19] MEDS: GABAPENTIN 100 MG CAPSULE (FP) PO SCH ×3 (05:46→21:15)
[2018-06-19] MEDS ORDERED: DEXTROSE 5%-WATER 100 ML IVPB ONE (10:14)
[2018-06-19] MEDS: LACTOBACILLUS ACIDOPHILUS 1 TABLET PO SCH (10:24)
[2018-06-19] MEDS: ASPIRIN 81 MG CHEWABLE TABLETS PO SCH (10:24)
[2018-06-19] MEDS: metoPROLOL SUCCINATE 25 MG TAB.SR.24H (FP) PO SCH (10:24)
[2018-06-19] MEDS: LISINOPRIL 5 MG TABLET (FP) PO SCH (10:25)
[2018-06-19] MEDS: FUROSEMIDE 40 MG TABLET (FP) PO SCH (10:25)
[2018-06-19] MEDS: CEFTRIAXONE 2 GM in DEXTROSE 5%-WATER 100 ML IVPB SCH (10:25)
[2018-06-19] MEDS: BUDESONIDE/FORMETEROL FUMARATE 160/4.5 mcg INHALER IH SCH ×2 (10:26→23:50)
[2018-06-19] MEDS: KETOCONOZOLE 2% TOPICAL CREAM 15 GM TUBE TP SCH (10:45)
[2018-06-19] MEDS: MUPIROCIN 2% TOPICAL OINTMENT 22 GM TUBE TP SCH ×2 (10:45→23:50)
--- NOTE | 2018-06-19 12:05 | PN ---
Progress Note, Physician History of Present Illness: PULMONARY ALERT,NO DISTRESS,-CP,DYSPNEA IMPROVING - Current Medication List Current Medications: Active Medications Albuterol Sulfate (Ventolin 0.083% Nebulizer Soln -) 1 amp NEB Q6H PRN PRN Reason: SHORT OF BREATH/WHEEZING Aspirin (Asa -) 81 mg PO DAILY [facility] Last Admin: 06/19/18 10:24 Dose: 81 mg Atorvastatin Calcium (Lipitor -) 40 mg PO HS [facility] Last Admin: 06/18/18 21:21 Dose: 40 mg Budesonide/Formoterol Fumarate (Symbicort 160/4.5mcg -) 2 puff IH BID [facility] Last Admin: 06/19/18 10:26 Dose: 2 puff Furosemide (Lasix -) 40 mg PO DAILY [facility] Last Admin: 06/19/18 10:25 Dose: 40 mg Gabapentin (Neurontin -) 100 mg PO TID [facility] Last Admin: 06/19/18 05:46 Dose: 100 mg Heparin Sodium (Porcine) (Heparin -) 5,000 unit SQ TID [facility] Last Admin: 06/19/18 05:46 Dose: 5,000 unit Ceftriaxone Sodium 2 gm/ (Dextrose) 100 mls @ 200 mls/hr IVPB DAILY [facility]; Protocol Last Admin: 06/19/18 10:25 Dose: 200 mls/hr Ketoconazole (Nizoral 2% Cream -) 1 applic TP DAILY [facility] Last Admin: 06/18/18 10:37 Dose: 1 applic Lactobacillus Acidophilus (Bacid -) 1 tab PO DAILY [facility] Last Admin: 06/19/18 10:24 Dose: 1 tab Lisinopril (Prinivil) 5 mg PO DAILY [facility] Last Admin: 06/19/18 10:25 Dose: 5 mg Metoprolol Succinate (Toprol Xl -) 12.5 mg PO DAILY [facility] Last Admin: 06/19/18 10:24 Dose: 12.5 mg Mupirocin (Bactroban 2% Ointment -) 1 applic TP BID [facility] Last Admin: 06/18/18 21:22 Dose: 1 applic Non-Formulary Medication (Aclidinium [place] [Tudorza Pressair]) 1 puff IH AM [facility] - Objective Vital Signs: Vital Signs Temperature 98.1 F 06/19/18 06:00 Pulse Rate 69 06/19/18 06:00 Respiratory Rate 18 06/19/18 06:00 Blood Pressure 108/55 L 06/19/18 06:00 O2 Sat by Pulse Oximetry (%) 95 06/18/18 21:00 Constitutional: Yes: Well Nourished, Calm Eyes: Yes: WNL HENT: Yes: WNL Neck: Yes: WNL Cardiovascular: Yes: Regular Rate and Rhythm, S1, S2 Respiratory: Yes: Diminished Gastrointestinal: Yes: Normal Bowel Sounds, Soft Extremities: Yes: Other (BANDAGED) Labs: CBC, BMP INR, PTT INR 1.13 (0.83-1.09) H 06/16/18 07:20 Problem List - Problems (1) Acute on chronic respiratory failure with hypoxia and hypercapnia Code(s): J96.21 - ACUTE AND CHRONIC RESPIRATORY FAILURE WITH HYPOXIA; J96.22 - ACUTE AND CHRONIC RESPIRATORY FAILURE WITH HYPERCAPNIA Assessment/Plan Problem List - Problems (1) COPD exacerbation Code(s): J44.1 - CHRONIC OBSTRUCTIVE PULMONARY DISEASE W (ACUTE) EXACERBATION (2) Cellulitis Code(s): L03.90 - CELLULITIS, UNSPECIFIED Qualifiers: Site of cellulitis: extremity Site of cellulitis of extremity: lower extremity Laterality: unspecified laterality Qualified Code(s): L03.119 - Cellulitis of unspecified part of limb (3) Congestive heart failure Code(s): I50.9 - HEART FAILURE, UNSPECIFIED (4) Hypoxia Code(s): R09.02 - HYPOXEMIA (5) Tobacco abuse Code(s): Z72.0 - TOBACCO USE Assessment/Plan Shortness of breath improving Acute on Likely Chronic Hypoxic and Hypercapneic Respiratory Failure Acute COPD Exacerbation Acute on Chronic Systolic Heart Failure Cellulitis - Offered short course of systemic steroids but per patient/daughter, patient does not tolerate steroids well - Inhaled bronchodilators standing and PRN - O2 to keep SpO2 >90% - Lasix - Monitor urine output, creatinine - Antibiotics per ID - DVT prophylaxis DR LEMON
--- NOTE | 2018-06-19 12:15 | PN ---
Physical Exam: SUBJECTIVE: Patient seen and examined at bedside this morning. She endorses pain in her lower extremities is diminishing. She denies fevers,chills, shortness of breath, cough, chest pain, palpitations, abdominal pain, nausea, vomiting. OBJECTIVE: Vital Signs Period Temp Pulse Resp BP Sys/Maldonado Pulse Ox Last 24 Hr 98.1 F-99.1 F 69-77 18-19 105-108/54-55 95 GENERAL: The patient is awake, alert, and fully oriented, in no acute distress. HEAD: Normocephalic, atraumatic EYES: PERRL, extraocular movements intact, sclera anicteric, conjunctiva clear without injection B/L. ENT: Oropharynx clear without exudates, moist mucous membranes. NECK: Supple without lymphadenopathy. No JVD noted. LUNGS: Good inspiratory effort, poor air entry B/L. No wheezes, no crackles auscultated. No accessory muscle use. HEART: Regular rate and rhythm, S1, S2 without murmur, rub or gallop. ABDOMEN: Soft, nontender, nondistended. Normoactive bowel sounds X4 quadrants. No guarding, no rebound tenderness. EXTREMITIES: 2+ radial pusles B/L. Lower extremities 1+ pitting edema, tender with dry flaking skin. 5cm X 5cm ulcer noted along right lateral lower extremity , draining slight purulent discharge. Ulcer along left lateral lower extremity, draining purulent discharge. Onychomycosis noted B/L. NEUROLOGICAL: Cranial nerves II through XII grossly intact. Normal speech. Strength 5/5 B/L upper extremities, strength 4/5 B/L lower extremities. PSYCH: Normal mood, normal affect upon my encounter today. Active Medications Generic Name Dose Route Start Last Admin Trade Name Freq PRN Reason Stop Dose Admin Albuterol Sulfate 1 amp 06/17/18 17:53 Ventolin 0.083% Nebulizer Soln - NEB Q6H PRN SHORT OF BREATH/WHEEZING Aspirin 81 mg 06/16/18 15:45 06/19/18 10:24 Asa - PO 81 mg DAILY [facility] Administration Atorvastatin Calcium 40 mg 06/16/18 22:00 06/18/18 21:21 Lipitor - PO 40 mg HS [facility] Administration Budesonide/Formoterol Fumarate 2 puff 06/17/18 22:00 06/19/18 10:26 Symbicort 160/4.5mcg - IH 2 puff BID [facility] Administration Furosemide 40 mg 06/18/18 10:00 06/19/18 10:25 Lasix - PO 40 mg DAILY [facility] Administration Gabapentin 100 mg 06/17/18 22:00 06/19/18 05:46 Neurontin - PO 100 mg TID [facility] Administration Heparin Sodium (Porcine) 5,000 unit 06/17/18 22:00 06/19/18 05:46 Heparin - SQ 5,000 unit TID [facility] Administration Ceftriaxone Sodium 2 gm/ 100 mls @ 200 mls/hr 06/18/18 15:00 06/19/18 10:25 Dextrose IVPB 200 mls/hr DAILY [facility] Administration Protocol Ketoconazole 1 applic 06/16/18 16:33 06/18/18 10:37 Nizoral 2% Cream - TP 1 applic DAILY [facility] Administration Lactobacillus Acidophilus 1 tab 06/18/18 10:00 06/19/18 10:24 Bacid - PO 1 tab DAILY [facility] Administration Lisinopril 5 mg 06/18/18 10:00 06/19/18 10:25 Prinivil PO 5 mg DAILY [facility] Administration Metoprolol Succinate 12.5 mg 06/18/18 10:00 06/19/18 10:24 Toprol Xl - PO 12.5 mg DAILY [facility] Administration Mupirocin 1 applic 06/17/18 22:00 06/18/18 21:22 Bactroban 2% Ointment - TP 1 applic BID [facility] Administration Non-Formulary Medication 1 puff 06/18/18 07:00 Aclidinium [place] [Tudorza Pressair] IH AM [facility] Lower extremity arterial doppler shows moderate atherosclerotic disease with abnormal monophasic flow bilateraly. Lower extremity venous duplex shows no evidence of DVT ASSESSMENT/PLAN: Patient is a 72 year old female with history of chronic lower extremity venous stasis, hypertension, COPD, and congestive heart failure presents with complaint of bilateral lower extremity wounds with purulent drainage. Lower extremity venous stasis wounds -Wounds likely secondary to long standing venous stasis. -Cefazolin switched to Ceftriaxone 2 grams IV daily -Wound cultures right leg (06/16) grow Klebsiella Oxytoca, Proteus Vulgaris, Enterococcus Avium, Diphtheroid/ Corynebacterium -Wound cultures left leg (06/16) grow Klebsiella Oxytoca, Alpha hemolytic Streptococcus, Diphtheroid/ Corynebacterium -Bactroban 2% ointment applied BID prior to dressing application -Pain control with gabapentin 100mg PO TID -Vascular surgery, wound care consult (Dr. Nevarez) appreciated -ID consult (Dr. Santiago) appreciated. Lower extremity fungal infection, onychomycosis -Ketoconazole topical ointment 1 application TP daily -Podiatry consult (Dr. Pierre) Congestive heart failure -Cardiac ECHO shows: Severely reduced EF = 25-20%, with LV hypokinesis. -Lisinopril 5mg PO daily -Metoprolol 12.5mg PO daily -Lasix 40mg PO daily -Cardiology consult (Dr. Duvall) appreciated -Daily weights, strict intake and output. Hypertension -Patient is receiving Lisinopril, Metoprolol, Lasix. Hyperlipidemia -Atorvastatin 40mg PO HS COPD -Symbicort 160/ 4.5mcg 2puff BID -Tudorza 1 puff daily -Albuterol nebulizer 1 amp Q6H PRN for shortness of breath -Pulmonology consult (Dr. Phillips) appreciated FEN -No IV fluids indicated. -Follow CMP -Sodium controlled diet Prophylaxis -Heparin 5000u subq TID Disposition -Continue care in medical- surgical floor Visit type - Emergency Visit Emergency Visit: Yes ED Registration Date: 06/16/18 Care time: The patient presented to the Emergency Department on the above date and was hospitalized for further evaluation of their emergent condition. - New Patient This patient is new to me today: No - Critical Care Critical Care patient: No - Discharge Referral Referred to [facility] No
--- NOTE | 2018-06-19 12:37 | PN ---
Teaching Attending Note Name of Resident: Tesfaye Gomez ATTENDING PHYSICIAN STATEMENT I saw and evaluated the patient. I reviewed the resident's note and discussed the case with the resident. I agree with the resident's findings and plan as documented. SUBJECTIVE: no new c/o still c/o pain in her legs OBJECTIVE: Vital Signs Period Temp Pulse Resp BP Sys/Maldonado Pulse Ox Last 24 Hr 98.1 F-99.1 F 69-77 18-19 105-108/54-55 95 Heent nad neck supple lungs mild wheezing heart no change ext dressing in place and oozing from both sides Current Medications Albuterol Sulfate (Ventolin 0.083% Nebulizer Soln -) 1 amp NEB Q6H PRN PRN Reason: SHORT OF BREATH/WHEEZING Aspirin (Asa -) 81 mg PO DAILY [facility] Last Admin: 06/19/18 10:24 Dose: 81 mg Atorvastatin Calcium (Lipitor -) 40 mg PO HS [facility] Last Admin: 06/18/18 21:21 Dose: 40 mg Budesonide/Formoterol Fumarate (Symbicort 160/4.5mcg -) 2 puff IH BID [facility] Last Admin: 06/19/18 10:26 Dose: 2 puff Furosemide (Lasix -) 40 mg PO DAILY [facility] Last Admin: 06/19/18 10:25 Dose: 40 mg Gabapentin (Neurontin -) 100 mg PO TID [facility] Last Admin: 06/19/18 05:46 Dose: 100 mg Heparin Sodium (Porcine) (Heparin -) 5,000 unit SQ TID [facility] Last Admin: 06/19/18 05:46 Dose: 5,000 unit Ceftriaxone Sodium 2 gm/ (Dextrose) 100 mls @ 200 mls/hr IVPB DAILY [facility]; Protocol Last Admin: 06/19/18 10:25 Dose: 200 mls/hr Ketoconazole (Nizoral 2% Cream -) 1 applic TP DAILY [facility] Last Admin: 06/18/18 10:37 Dose: 1 applic Lactobacillus Acidophilus (Bacid -) 1 tab PO DAILY [facility] Last Admin: 06/19/18 10:24 Dose: 1 tab Lisinopril (Prinivil) 5 mg PO DAILY [facility] Last Admin: 06/19/18 10:25 Dose: 5 mg Metoprolol Succinate (Toprol Xl -) 12.5 mg PO DAILY [facility] Last Admin: 06/19/18 10:24 Dose: 12.5 mg Mupirocin (Bactroban 2% Ointment -) 1 applic TP BID [facility] Last Admin: 06/18/18 21:22 Dose: 1 applic Non-Formulary Medication (Aclidinium [place] [Tudorza Pressair]) 1 puff IH AM [facility] ASSESSMENT AND PLAN: ASSESSMENT AND PLAN: This is a 72 year old woman with a history of venous stasis, chronic systolic heart failure, hypertension, hyperlipidemia, COPD who presented with pain and ulcers of both legs. will continue abx and now it is changed to iv ceftrioxe wound dressing daily continue medications for heart failure, htn, high lipid and neuropathy will repeat bmp am for f/u for creatinine
[2018-06-19] MEDS: ATORVASTATIN CA 40 MG TABLET (FP) PO SCH (21:15)
[2018-06-20] MEDS: HEPARIN NA (PORCINE) 5,000 UNITS/ML 1ML VIAL SQ SCH ×3 (05:50→21:39)
[2018-06-20] MEDS: GABAPENTIN 100 MG CAPSULE (FP) PO SCH ×3 (05:50→21:39)
[2018-06-20 08:22] LABS: HEMATOCRIT 38.6 % (32.4-45.2); HEMOGLOBIN 12.1 GM/dL (10.7-15.3); MCH 30.2 pg (25.7-33.7); MCHC 31.3 g/dl (32.0-36.0); MEAN CELL VOLUME 96.6 fl (80-96); MEAN PLT VOLUME 8.7 fl (7.5-11.1); PLATELET COUNT 189 K/MM3 (134-434); WHITE BLOOD COUNT 5.5 K/mm3 (4.0-10.0)
[2018-06-20] MEDS ORDERED: DEXTROSE 5%-WATER 100 ML IVPB ONE (08:47)
[2018-06-20 09:18] LABS: ALBUMIN 2.2 g/dl (3.4-5.0); ALK PHOS 116 U/L (45-117); ANION GAP 5 MMOL/L (8-16); BILIRUBIN,TOTAL 0.5 mg/dL (0.2-1); BLOOD UREA NITROGEN 24 mg/dL (7-18); CALCIUM 8.7 mg/dL (8.5-10.1); CHLORIDE 102 mmol/L (98-107); CO2 35 mmol/L (21-32); CREATININE 1.7 mg/dL (0.55-1.3); GLUCOSE,RANDOM 81 mg/dL (74-106); POTASSIUM 4.4 mmol/L (3.5-5.1); SGOT/AST 25 U/L (15-37); SGPT/ALT 7 U/L (13-61); SODIUM 142 mmol/L (136-145); TOT PROT 5.2 g/dl (6.4-8.2)
[2018-06-20] MEDS: CEFTRIAXONE 2 GM in DEXTROSE 5%-WATER 100 ML IVPB SCH (09:23)
[2018-06-20] MEDS: FUROSEMIDE 40 MG TABLET (FP) PO SCH (09:24)
[2018-06-20] MEDS: ASPIRIN 81 MG CHEWABLE TABLETS PO SCH (09:24)
[2018-06-20] MEDS: LACTOBACILLUS ACIDOPHILUS 1 TABLET PO SCH (09:24)
[2018-06-20] MEDS: metoPROLOL SUCCINATE 25 MG TAB.SR.24H (FP) PO SCH (09:24)
[2018-06-20] MEDS: LISINOPRIL 5 MG TABLET (FP) PO SCH (09:24)
[2018-06-20] MEDS: BUDESONIDE/FORMETEROL FUMARATE 160/4.5 mcg INHALER IH SCH ×2 (09:26→21:39)
--- NOTE | 2018-06-20 12:33 | CONSULT ---
Consult Consult Specialty:: PODIATRY Reason for Consultation:: Onychomycosis - History of Present Illness History of Present Illness: 72 y/o female in bed w/ daughter at bedside. States that since she has an infection in her legs and alot of swelling it makes it very difficult to trim own nails. States theya re now very long and causing her alot of pain. Denies any other pedal complaints. States leg infection is slowly getting better as swelling goes down. Denies any f/c/n/v/sob. - History Source History Provided By: Patient - Past Medical History Cardio/Vascular: Yes: CHF, HTN, Other (venous stasis ulcers) Pulmonary: Yes: COPD - Past Surgical History Past Surgical History: Yes: Appendectomy - Alcohol/Substance Use Hx Alcohol Use: No History of Substance Use: reports: None - Smoking History Smoking history: Current some day smoker Have you smoked in the past 12 months: Yes Aproximately how many cigarettes per day: 5 - Social History Usual Living Arrangement: With Child ADL: Independent History of Recent Travel: No Home Medications - Allergies Allergies/Adverse Reactions: Allergies Allergy/AdvReac Type Severity Reaction Status Date / Time Penicillins Allergy Verified 06/15/18 19:11 Antibiotics (CAN TAKE Z-PACK) Allergy Pt states Uncoded 06/15/18 19:11 is sensitive to many antibiotics but can take zpak - Home Medications Home Medications: Ambulatory Orders Lisinopril [Prinivil] 5 mg PO DAILY #30 tablet 07/10/15 Albuterol 0.083% Nebulizer Jolie [Ventolin 0.083% Nebulizer Soln -] 1 neb NEB Q6H PRN #30 vial 06/17/16 Tiotropium [place] [Spiriva] 1 inh IH DAILY #1 inh 06/17/16 Furosemide [Lasix -] 40 mg PO DAILY 06/15/18 Metoprolol Succinate 25 mg PO DAILY 06/15/18 Physical Exam Vital Signs: Vital Signs Temperature 98 F 06/20/18 10:00 Pulse Rate 70 06/20/18 10:00 Respiratory Rate 18 06/20/18 10:00 Blood Pressure 110/63 06/20/18 10:00 O2 Sat by Pulse Oximetry (%) 95 06/19/18 21:00 Integumentary: Yes: Other (B/l LE onychomycosis, pop to all nais b/l , thickening, discoloration noted.) Labs: CBC, BMP 06/20/18 06:00 06/20/18 06:00 Assessment/Plan A: Onychomycosis P; evaluated and chart reviewed Nails debrided at bedside w/o complication Rx for Ciclopirox daily to all nails can be started Can f/u as outpatient in my office in [place].
--- NOTE | 2018-06-20 13:10 | PN ---
Progress Note (short form) - Note Progress Note: doing well no complaints daughter at bedside Vital Signs Period Temp Pulse Resp BP Sys/Maldonado Pulse Ox Last 24 Hr 98 F-98.2 F 63-72 18-18 103-110/49-63 95 cor-rrr lungs clear abd soft,nt ext no drainage +venous stasis hyperkeratotic skin is peeling off clean ulcers both legs-no purulence CBC, BMP 06/20/18 06:00 06/20/18 06:00 Microbiology 06/16/18 13:05 Blood - Peripheral Venous Blood Culture - Preliminary NO GROWTH OBTAINED AFTER 96 HOURS, INCUBATION TO CONTINUE FOR 1 DAYS. 06/16/18 13:00 Blood - Peripheral Venous Blood Culture - Preliminary NO GROWTH OBTAINED AFTER 96 HOURS, INCUBATION TO CONTINUE FOR 1 DAYS. 06/16/18 10:00 Leg - Right Lower Gram Stain - Final 06/16/18 10:00 Leg - Right Lower Wound Culture - Final Klebsiella Oxytoca Proteus Vulgaris Enterococcus Avium Diphtheroid/Corynebacterium 06/16/18 13:55 Leg - Left Lower Gram Stain - Final 06/16/18 13:55 Leg - Left Lower Wound Culture - Final Klebsiella Oxytoca Alpha Hemolytic Streptococcus Diphtheroid/Corynebacterium a/p bilateral cellulitis venous stasis pen allergy improving can switch to ceftin 250 bid when ready for d/c for another 5 days needs VNS and wound care f/u d/w patient and [facility] d/w resident please call back if needed
[2018-06-20] MEDS: KETOCONOZOLE 2% TOPICAL CREAM 15 GM TUBE TP SCH (13:42)
[2018-06-20] MEDS: MUPIROCIN 2% TOPICAL OINTMENT 22 GM TUBE TP SCH ×2 (13:43→21:45)
--- NOTE | 2018-06-20 13:47 | PN ---
Progress Note (short form) - Note Progress Note: PULMONARY States breathing about the same. Occasional cough and wheezing. Vital Signs Period Temp Pulse Resp BP Sys/Maldonado Pulse Ox Last 24 Hr 98 F-98.2 F 63-72 18-18 103-110/49-63 95 Gen: NAD at rest Heart: RRR Lung: distant breath sounds Abd: soft, nontender Ext: no edema CBC, BMP 06/20/18 06:00 06/20/18 06:00 Active Medications Albuterol Sulfate (Ventolin 0.083% Nebulizer Soln -) 1 amp NEB Q6H PRN PRN Reason: SHORT OF BREATH/WHEEZING Aspirin (Asa -) 81 mg PO DAILY [facility] Last Admin: 06/20/18 09:24 Dose: 81 mg Atorvastatin Calcium (Lipitor -) 40 mg PO HS [facility] Last Admin: 06/19/18 21:15 Dose: 40 mg Budesonide/Formoterol Fumarate (Symbicort 160/4.5mcg -) 2 puff IH BID [facility] Last Admin: 06/20/18 09:26 Dose: 2 puff Furosemide (Lasix -) 40 mg PO DAILY [facility] Last Admin: 06/20/18 09:24 Dose: 40 mg Gabapentin (Neurontin -) 100 mg PO TID [facility] Last Admin: 06/20/18 05:50 Dose: 100 mg Heparin Sodium (Porcine) (Heparin -) 5,000 unit SQ TID [facility] Last Admin: 06/20/18 05:50 Dose: 5,000 unit Ceftriaxone Sodium 2 gm/ (Dextrose) 100 mls @ 200 mls/hr IVPB DAILY [facility]; Protocol Last Admin: 06/20/18 09:23 Dose: 200 mls/hr Ketoconazole (Nizoral 2% Cream -) 1 applic TP DAILY [facility] Last Admin: 06/19/18 10:45 Dose: 1 applic Lactobacillus Acidophilus (Bacid -) 1 tab PO DAILY [facility] Last Admin: 06/20/18 09:24 Dose: 1 tab Lisinopril (Prinivil) 5 mg PO DAILY [facility] Last Admin: 06/20/18 09:24 Dose: 5 mg Metoprolol Succinate (Toprol Xl -) 12.5 mg PO DAILY [facility] Last Admin: 06/20/18 09:24 Dose: 12.5 mg Mupirocin (Bactroban 2% Ointment -) 1 applic TP BID [facility] Last Admin: 06/19/18 23:50 Dose: 1 applic Non-Formulary Medication (Aclidinium [place] [Tudorza Pressair]) 1 puff IH AM [facility] A/P Shortness of breath improving Acute on Likely Chronic Hypoxic and Hypercapneic Respiratory Failure Acute COPD Exacerbation Acute on Chronic Systolic Heart Failure Cellulitis - inhaled bronchodilators standing and PRN - O2 to keep SpO2 >90% - continue lasix - monitor urine output, creatinine - antibiotics per ID - DVT prophylaxis - when ready for discharge, check ambulatory SpO2 on room air to assess for home O2 Problem List - Problems (1) COPD exacerbation Code(s): J44.1 - CHRONIC OBSTRUCTIVE PULMONARY DISEASE W (ACUTE) EXACERBATION (2) Cellulitis Code(s): L03.90 - CELLULITIS, UNSPECIFIED Qualifiers: Site of cellulitis: extremity Site of cellulitis of extremity: lower extremity Laterality: unspecified laterality Qualified Code(s): L03.119 - Cellulitis of unspecified part of limb (3) Congestive heart failure Code(s): I50.9 - HEART FAILURE, UNSPECIFIED (4) Hypoxia Code(s): R09.02 - HYPOXEMIA (5) Tobacco abuse Code(s): Z72.0 - TOBACCO USE
--- NOTE | 2018-06-20 14:23 | PN ---
Progress Note (short form) - Note Progress Note: s: no cp sob palps dizzy. o: Vital Signs Period Temp Pulse Resp BP Sys/Maldonado Pulse Ox Last 24 Hr 98 F-98.8 F 63-75 18-18 103-110/49-63 95 nad no jvd rrr s1s2 no mrg cta bl nl eff aaox3 chronic venous stasis changes of legs b/l with open wounds and erythema, nonpit edema abd nt nd pos bs no jaundice diaphoresis Current Medications Albuterol Sulfate (Ventolin 0.083% Nebulizer Soln -) 1 amp NEB Q6H PRN PRN Reason: SHORT OF BREATH/WHEEZING Aspirin (Asa -) 81 mg PO DAILY [facility] Last Admin: 06/20/18 09:24 Dose: 81 mg Atorvastatin Calcium (Lipitor -) 40 mg PO HS [facility] Last Admin: 06/19/18 21:15 Dose: 40 mg Budesonide/Formoterol Fumarate (Symbicort 160/4.5mcg -) 2 puff IH BID [facility] Last Admin: 06/20/18 09:26 Dose: 2 puff Furosemide (Lasix -) 40 mg PO DAILY [facility] Last Admin: 06/20/18 09:24 Dose: 40 mg Gabapentin (Neurontin -) 100 mg PO TID [facility] Last Admin: 06/20/18 13:43 Dose: 100 mg Heparin Sodium (Porcine) (Heparin -) 5,000 unit SQ TID [facility] Last Admin: 06/20/18 13:44 Dose: 5,000 unit Ceftriaxone Sodium 2 gm/ (Dextrose) 100 mls @ 200 mls/hr IVPB DAILY [facility]; Protocol Last Admin: 06/20/18 09:23 Dose: 200 mls/hr Ketoconazole (Nizoral 2% Cream -) 1 applic TP DAILY [facility] Last Admin: 06/20/18 13:42 Dose: 1 applic Lactobacillus Acidophilus (Bacid -) 1 tab PO DAILY [facility] Last Admin: 06/20/18 09:24 Dose: 1 tab Lisinopril (Prinivil) 5 mg PO DAILY [facility] Last Admin: 06/20/18 09:24 Dose: 5 mg Metoprolol Succinate (Toprol Xl -) 12.5 mg PO DAILY [facility] Last Admin: 06/20/18 09:24 Dose: 12.5 mg Mupirocin (Bactroban 2% Ointment -) 1 applic TP BID [facility] Last Admin: 06/20/18 13:43 Dose: 1 applic Non-Formulary Medication (Aclidinium [place] [Tudorza Pressair]) 1 puff IH AM [facility] cta chest: no pe, no chf ecg: sinus tachy, nl intervals, no ischemic changes echo 06/2015: lvef 35-40, global hk, mild tr, nl rvsp echo 06/2018: lvef 25-30, global hk, rv tds, no sig valve path a/p: 72 f hx syst chf, hld, copd, htn, here with chronic non healing leg wounds. le edema/venous insuff/cellulitis/ulcers: -cont abx per ID -cont lasix po chronic syst chf: -no signs pulm edema or acute chf - continue home lasix -cont toprol, lisinopril hld: -cont statin htn: -cont home meds
--- NOTE | 2018-06-20 16:30 | PN ---
Physical Exam: SUBJECTIVE: Patient seen and examined at bedside this morning. Patient does not endorse any new complaints. She denies fevers,chills, shortness of breath, cough , chest pain, palpitations, abdominal pain, nausea, vomiting. Discussed with patient and her daughter at bedside regarding likelyhood of SNF placement. Patient and daughter are considering SNF. OBJECTIVE: Vital Signs Period Temp Pulse Resp BP Sys/Maldonado Pulse Ox Last 24 Hr 98 F-98.8 F 63-89 18-18 103-110/49-63 94-95 GENERAL: The patient is awake, alert, and fully oriented, in no acute distress. HEAD: Normocephalic, atraumatic EYES: PERRL, extraocular movements intact, sclera anicteric, conjunctiva clear without injection B/L. ENT: Oropharynx clear without exudates, moist mucous membranes. NECK: Supple without lymphadenopathy. No JVD noted. LUNGS: Good inspiratory effort, poor air entry B/L. No wheezes, no crackles auscultated. No accessory muscle use. HEART: Regular rate and rhythm, S1, S2 without murmur, rub or gallop. ABDOMEN: Soft, nontender, nondistended. Normoactive bowel sounds X4 quadrants. No guarding, no rebound tenderness. EXTREMITIES: 2+ radial pusles B/L. Lower extremities 1+ pitting edema, tender with dry flaking skin. 7cm X 7cm ulcer noted along right lateral lower extremity , without purulent discharge. 5cm x 3cm ulcer along left lateral lower extremity , without purulence. Onychomycosis noted B/L. NEUROLOGICAL: Cranial nerves II through XII grossly intact. Normal speech. Strength 5/5 B/L upper extremities, strength 4/5 B/L lower extremities. PSYCH: Normal mood, normal affect upon my encounter today. Laboratory Results - last 24 hr 06/20/18 06/20/18 06:00 06:00 WBC 5.5 RBC 4.00 Hgb 12.1 Hct 38.6 MCV 96.6 H MCH 30.2 MCHC 31.3 L RDW 15.0 Plt Count 189 MPV 8.7 Sodium 142 Potassium 4.4 Chloride 102 Carbon Dioxide 35 H Anion Gap 5 L BUN 24 H Creatinine 1.7 H Creat Clearance w eGFR 29.71 Random Glucose 81 Calcium 8.7 Total Bilirubin 0.5 AST 25 ALT 7 L Alkaline Phosphatase 116 Total Protein 5.2 L Albumin 2.2 L Active Medications Generic Name Dose Route Start Last Admin Trade Name Freq PRN Reason Stop Dose Admin Albuterol Sulfate 1 amp 06/17/18 17:53 Ventolin 0.083% Nebulizer Soln - NEB Q6H PRN SHORT OF BREATH/WHEEZING Aspirin 81 mg 06/16/18 15:45 06/20/18 09:24 Asa - PO 81 mg DAILY [facility] Administration Atorvastatin Calcium 40 mg 06/16/18 22:00 06/19/18 21:15 Lipitor - PO 40 mg HS [facility] Administration Budesonide/Formoterol Fumarate 2 puff 06/17/18 22:00 06/20/18 09:26 Symbicort 160/4.5mcg - IH 2 puff BID [facility] Administration Furosemide 40 mg 06/18/18 10:00 06/20/18 09:24 Lasix - PO 40 mg DAILY [facility] Administration Gabapentin 100 mg 06/17/18 22:00 06/20/18 13:43 Neurontin - PO 100 mg TID [facility] Administration Heparin Sodium (Porcine) 5,000 unit 06/17/18 22:00 06/20/18 13:44 Heparin - SQ 5,000 unit TID [facility] Administration Ceftriaxone Sodium 2 gm/ 100 mls @ 200 mls/hr 06/18/18 15:00 06/20/18 09:23 Dextrose IVPB 200 mls/hr DAILY [facility] Administration Protocol Ketoconazole 1 applic 06/16/18 16:33 06/20/18 13:42 Nizoral 2% Cream - TP 1 applic DAILY [facility] Administration Lactobacillus Acidophilus 1 tab 06/18/18 10:00 06/20/18 09:24 Bacid - PO 1 tab DAILY [facility] Administration Lisinopril 5 mg 06/18/18 10:00 06/20/18 09:24 Prinivil PO 5 mg DAILY [facility] Administration Metoprolol Succinate 12.5 mg 06/18/18 10:00 06/20/18 09:24 Toprol Xl - PO 12.5 mg DAILY [facility] Administration Mupirocin 1 applic 06/17/18 22:00 06/20/18 13:43 Bactroban 2% Ointment - TP 1 applic BID [facility] Administration Non-Formulary Medication 1 puff 06/18/18 07:00 Aclidinium [place] [Tudorza Pressair] IH AM [facility] Lower extremity arterial doppler shows moderate atherosclerotic disease with abnormal monophasic flow bilateraly. Lower extremity venous duplex shows no evidence of DVT ASSESSMENT/PLAN: Patient is a 72 year old female with history of chronic lower extremity venous stasis, hypertension, COPD, and congestive heart failure presents with complaint of bilateral lower extremity wounds with purulent drainage. Lower extremity venous stasis wounds -Wounds likely secondary to long standing venous stasis. -Ceftriaxone 2 grams IV daily -Wound cultures right leg (06/16) grow Klebsiella Oxytoca, Proteus Vulgaris, Enterococcus Avium, Diphtheroid/ Corynebacterium -Wound cultures left leg (06/16) grow Klebsiella Oxytoca, Alpha hemolytic Streptococcus, Diphtheroid/ Corynebacterium -Bactroban 2% ointment applied BID prior to dressing application -Pain control with gabapentin 100mg PO TID -Vascular surgery, wound care consult (Dr. Nevarez) appreciated -ID consult (Dr. Santiago) appreciated. Lower extremity fungal infection, onychomycosis -Ketoconazole topical ointment 1 application TP daily -Podiatry consult (Dr. Pierre) appreciated. Congestive heart failure -Cardiac ECHO shows: Severely reduced EF = 25-20%, with LV hypokinesis. -Lisinopril 5mg PO daily -Metoprolol 12.5mg PO daily -Lasix 40mg PO daily -Cardiology consult (Dr. Duvall) appreciated -Daily weights, strict intake and output. Hypertension -Patient is receiving Lisinopril, Metoprolol, Lasix. Hyperlipidemia -Atorvastatin 40mg PO HS COPD -Symbicort 160/ 4.5mcg 2puff BID -Tudorza 1 puff daily -Albuterol nebulizer 1 amp Q6H PRN for shortness of breath -Pulmonology consult (Dr. Phillips) appreciated FEN -No IV fluids indicated. -Follow CMP -Sodium controlled diet Prophylaxis -Heparin 5000u subq TID Disposition -Continue care in medical- surgical floor. Patient will require SNF placement, if agreeable. Visit type - Emergency Visit Emergency Visit: Yes ED Registration Date: 06/16/18 Care time: The patient presented to the Emergency Department on the above date and was hospitalized for further evaluation of their emergent condition. - New Patient This patient is new to me today: No - Critical Care Critical Care patient: No - Discharge Referral Referred to [facility] No
--- NOTE | 2018-06-20 16:50 | PN ---
Progress Note (short form) - Note Progress Note: Called to see pt regarding bleeding coming from LE scabs while ambulating with PT. LE scabs/superficial ulcerations stable from initial consult on 06/16. Recommend daily gentle washes with normal saline to remove some of the scabs ( must be very gentle as pts skin is extremely sensitive and aggressive cleansing of scabs can result in new ulcerations). Continue to apply Mupirocin, keep legs well moisturized. Cover with 4x4 (ABD if needed) and kerlix, changed daily. Keep b/l le's elevated while pt at rest. Continue diuresis per Cardiology. Remainder of care per primary team Please call with any questions/concerns Above d/w attending Dr Nevarez
--- NOTE | 2018-06-20 17:46 | PN ---
Teaching Attending Note Name of Resident: Tesfaye Gomez ATTENDING PHYSICIAN STATEMENT I saw and evaluated the patient. I reviewed the resident's note and discussed the case with the resident. I agree with the resident's findings and plan as documented. SUBJECTIVE: No dyspnea. Some discomfort LEs. OBJECTIVE: Afebrile, Hemodynamically Stable. Last Vital Signs Temp Pulse Resp BP Pulse Ox 98.8 F 89 18 109/61 94 L 06/20/18 13:52 06/20/18 14:22 06/20/18 13:52 06/20/18 13:52 06/20/18 14:22 HEENT - Atraumatic. Normocephalic. Heart - S1, S2, RRR Lungs - decreased air entry at bases. Abdomen - Soft, non-tender. Bowel Sounds normal. Extremities - Bilateral chronic venous stasis changes with b/l LE ulcers, thickened yellow toe nails Laboratory Results - last 24 hr 06/20/18 06/20/18 06:00 06:00 WBC 5.5 RBC 4.00 Hgb 12.1 Hct 38.6 MCV 96.6 H MCH 30.2 MCHC 31.3 L RDW 15.0 Plt Count 189 MPV 8.7 Sodium 142 Potassium 4.4 Chloride 102 Carbon Dioxide 35 H Anion Gap 5 L BUN 24 H Creatinine 1.7 H Creat Clearance w eGFR 29.71 Random Glucose 81 Calcium 8.7 Total Bilirubin 0.5 AST 25 ALT 7 L Alkaline Phosphatase 116 Total Protein 5.2 L Albumin 2.2 L Current Medications Generic Name Dose Route Start Last Admin Trade Name Freq PRN Reason Stop Dose Admin Albuterol Sulfate 1 amp 06/17/18 17:53 Ventolin 0.083% Nebulizer Soln - NEB Q6H PRN SHORT OF BREATH/WHEEZING Aspirin 81 mg 06/16/18 15:45 06/20/18 09:24 Asa - PO 81 mg DAILY [facility] Administration Atorvastatin Calcium 40 mg 06/16/18 22:00 06/19/18 21:15 Lipitor - PO 40 mg HS ROSE Administration Budesonide/Formoterol Fumarate 2 puff 06/17/18 22:00 06/20/18 09:26 Symbicort 160/4.5mcg - IH 2 puff BID [facility] Administration Furosemide 40 mg 06/18/18 10:00 06/20/18 09:24 Lasix - PO 40 mg DAILY [facility] Administration Gabapentin 100 mg 06/17/18 22:00 06/20/18 13:43 Neurontin - PO 100 mg TID [facility] Administration Heparin Sodium (Porcine) 5,000 unit 06/17/18 22:00 06/20/18 13:44 Heparin - SQ 5,000 unit TID [facility] Administration Ceftriaxone Sodium 2 gm/ 100 mls @ 200 mls/hr 06/18/18 15:00 06/20/18 09:23 Dextrose IVPB 200 mls/hr DAILY [facility] Administration Protocol Ketoconazole 1 applic 06/16/18 16:33 06/20/18 13:42 Nizoral 2% Cream - TP 1 applic DAILY [facility] Administration Lactobacillus Acidophilus 1 tab 06/18/18 10:00 06/20/18 09:24 Bacid - PO 1 tab DAILY [facility] Administration Lisinopril 5 mg 06/18/18 10:00 06/20/18 09:24 Prinivil PO 5 mg DAILY [facility] Administration Metoprolol Succinate 12.5 mg 06/18/18 10:00 06/20/18 09:24 Toprol Xl - PO 12.5 mg DAILY [facility] Administration Mupirocin 1 applic 06/17/18 22:00 06/20/18 13:43 Bactroban 2% Ointment - TP 1 applic BID [facility] Administration Non-Formulary Medication 1 puff 06/18/18 07:00 Aclidinium [place] [Tudorza Pressair] IH AM [facility] ASSESSMENT AND PLAN: 72 year old male with a history of Chronic Venous Stasis, Chronic systolic heart failure, Hypertension, Hyperlipidemia, COPD who presented with pain and ulcers of both legs. 1. Bilateral LE Cellulitis/Infected venous stasis ulcers of both legs Wound Cx polymicrobial including Klebsiella and Diphtheroid/Corynebacterium. Continue Ceftriaxone, topical Bactroban to ulcers, topical ketoconazole to feet For switch to Ceftin on discharge. Arterial duplex shows bilateral moderate atherosclerotic disease with abnormal flow Venous dopplers show no evidence of DVT Afebrile/Hemodynamically Stable. Wound Care ongoing. 2. Onychomycosis of toenails with fungal skin infection of feet and legs Continue topical ketoconazole Podiatry consulted - recommend Ciclopirox to all nails (will check if pharmacy carries) For outpatient podiatry follow up with Dr. Alvarado. 3. COPD - Stable Continue Symbicort, Tudorza, albuterol as needed 4. HTN - Continue Toprol XL, Lisinopril, Lasix 5. Hyperlipidemia - Continue Lipitor 6. Chronic systolic heart failure - Stable Echo shows EF 25-30%, global hypokinesis of LV, trace TR Continue Lasix, Lisinopril, Toprol XL 7. Hypomagnesemia - Resolved s/p repletion. 8. CKD 3 - Creat up to 1.7, will monitor. Continue Lasix for now. DVT Px - Heparin SQ
[2018-06-20] MEDS: ATORVASTATIN CA 40 MG TABLET (FP) PO SCH (21:39)
[2018-06-20] MEDS ORDERED: PT OWN MED DRAWER 7, Y5N ONE (22:03)
[2018-06-21] MEDS: HEPARIN NA (PORCINE) 5,000 UNITS/ML 1ML VIAL SQ SCH ×3 (06:18→21:22)
[2018-06-21] MEDS: GABAPENTIN 100 MG CAPSULE (FP) PO SCH ×3 (06:18→21:22)
[2018-06-21 08:04] LABS: HEMATOCRIT 36.8 % (32.4-45.2); HEMOGLOBIN 12.5 GM/dL (10.7-15.3); MCH 32.4 pg (25.7-33.7); MCHC 33.9 g/dl (32.0-36.0); MEAN CELL VOLUME 95.5 fl (80-96); MEAN PLT VOLUME 8.9 fl (7.5-11.1); PLATELET COUNT 207 K/MM3 (134-434); RBC 3.86 M/mm3 (3.60-5.2); RDW 15.2 % (11.6-15.6); WHITE BLOOD COUNT 5.5 K/mm3 (4.0-10.0)
[2018-06-21 08:30] LABS: ALBUMIN 2.2 g/dl (3.4-5.0); ALK PHOS 126 U/L (45-117); ANION GAP 5 MMOL/L (8-16); BILIRUBIN,TOTAL 0.5 mg/dL (0.2-1); BLOOD UREA NITROGEN 27 mg/dL (7-18); CALCIUM 8.3 mg/dL (8.5-10.1); CHLORIDE 102 mmol/L (98-107); CO2 36 mmol/L (21-32); CREATININE 1.7 mg/dL (0.55-1.3); GLUCOSE,RANDOM 78 mg/dL (74-106); POTASSIUM 4.4 mmol/L (3.5-5.1); SGOT/AST 25 U/L (15-37); SGPT/ALT 9 U/L (13-61); SODIUM 142 mmol/L (136-145); TOT PROT 5.4 g/dl (6.4-8.2)
[2018-06-21] MEDS ORDERED: DEXTROSE 5%-WATER 100 ML IVPB ONE (09:05)
[2018-06-21] MEDS: CEFTRIAXONE 2 GM in DEXTROSE 5%-WATER 100 ML IVPB SCH (10:41)
[2018-06-21] MEDS: FUROSEMIDE 40 MG TABLET (FP) PO SCH (10:41)
[2018-06-21] MEDS: ASPIRIN 81 MG CHEWABLE TABLETS PO SCH (10:41)
[2018-06-21] MEDS: metoPROLOL SUCCINATE 25 MG TAB.SR.24H (FP) PO SCH (10:42)
[2018-06-21] MEDS: LACTOBACILLUS ACIDOPHILUS 1 TABLET PO SCH (10:42)
[2018-06-21] MEDS: LISINOPRIL 5 MG TABLET (FP) PO SCH (10:42)
[2018-06-21] MEDS: BUDESONIDE/FORMETEROL FUMARATE 160/4.5 mcg INHALER IH SCH ×2 (10:46→21:32)
[2018-06-21] MEDS: ALBUTEROL SO4 0.083% IH SOL 2.5 MG/3 ML VIAL.NEB. NEB PRN ×2 (12:22→20:01)
--- NOTE | 2018-06-21 12:30 | PN ---
Progress Note (short form) - Note Progress Note: s: no cp sob palps dizzy. o: Vital Signs Period Temp Pulse Resp BP Sys/Maldonado Pulse Ox Last 24 Hr 98 F-99.2 F 75-89 18-18 109-127/54-61 94-97 nad no jvd rrr s1s2 no mrg cta bl nl eff aaox3 chronic venous stasis changes of legs b/l with open wounds and erythema, nonpit edema abd nt nd pos bs no jaundice diaphoresis Current Medications Albuterol Sulfate (Ventolin 0.083% Nebulizer Soln -) 1 amp NEB Q6H PRN PRN Reason: SHORT OF BREATH/WHEEZING Last Admin: 06/21/18 12:22 Dose: 1 amp Aspirin (Asa -) 81 mg PO DAILY [facility] Last Admin: 06/21/18 10:41 Dose: 81 mg Atorvastatin Calcium (Lipitor -) 40 mg PO HS [facility] Last Admin: 06/20/18 21:39 Dose: 40 mg Budesonide/Formoterol Fumarate (Symbicort 160/4.5mcg -) 2 puff IH BID [facility] Last Admin: 06/21/18 10:46 Dose: 2 puff Furosemide (Lasix -) 40 mg PO DAILY [facility] Last Admin: 06/21/18 10:41 Dose: 40 mg Gabapentin (Neurontin -) 100 mg PO TID [facility] Last Admin: 06/21/18 06:18 Dose: 100 mg Heparin Sodium (Porcine) (Heparin -) 5,000 unit SQ TID [facility] Last Admin: 06/21/18 06:18 Dose: 5,000 unit Ceftriaxone Sodium 2 gm/ (Dextrose) 100 mls @ 200 mls/hr IVPB DAILY [facility]; Protocol Last Admin: 06/21/18 10:41 Dose: 200 mls/hr Ketoconazole (Nizoral 2% Cream -) 1 applic TP DAILY [facility] Last Admin: 06/20/18 13:42 Dose: 1 applic Lactobacillus Acidophilus (Bacid -) 1 tab PO DAILY [facility] Last Admin: 06/21/18 10:42 Dose: 1 tab Lisinopril (Prinivil) 5 mg PO DAILY [facility] Last Admin: 06/21/18 10:42 Dose: 5 mg Metoprolol Succinate (Toprol Xl -) 12.5 mg PO DAILY [facility] Last Admin: 06/21/18 10:42 Dose: 12.5 mg Mupirocin (Bactroban 2% Ointment -) 1 applic TP BID [facility] Last Admin: 06/20/18 21:45 Dose: 1 applic Non-Formulary Medication (Aclidinium [place] [Tudorza Pressair]) 1 puff IH AM [facility] cta chest: no pe, no chf ecg: sinus tachy, nl intervals, no ischemic changes echo 06/2015: lvef 35-40, global hk, mild tr, nl rvsp echo 06/2018: lvef 25-30, global hk, rv tds, no sig valve path a/p: 72 f hx syst chf, hld, copd, htn, here with chronic non healing leg wounds. le edema/venous insuff/cellulitis/ulcers: -cont abx per ID -cont lasix po chronic syst chf: -no signs pulm edema or acute chf, appears euvolemic although hypoxic with sat in 80s on 2L of O2 by [place], checking CXR - continue home lasix -cont toprol, lisinopril - med titration limited by elevated Cr, low BPs - would defer discussion of ICD currently, recent drop in EF <35%, advised to follow up as outpatient hld: -cont statin htn: -cont home meds
--- NOTE | 2018-06-21 12:44 | PN ---
Progress Note (short form) - Note Progress Note: PULMONARY Denies shortness of breath. Occasional cough and wheezing. Vital Signs Period Temp Pulse Resp BP Sys/Maldonado Pulse Ox Last 24 Hr 98 F-99.2 F 75-89 18-18 109-127/54-61 94-97 Gen: NAD at rest Heart: RRR Lung: distant breath sounds Abd: soft, nontender Ext: no edema CBC, BMP 06/21/18 06:35 06/21/18 06:35 Active Medications Albuterol Sulfate (Ventolin 0.083% Nebulizer Soln -) 1 amp NEB Q6H PRN PRN Reason: SHORT OF BREATH/WHEEZING Last Admin: 06/21/18 12:22 Dose: 1 amp Aspirin (Asa -) 81 mg PO DAILY [facility] Last Admin: 06/21/18 10:41 Dose: 81 mg Atorvastatin Calcium (Lipitor -) 40 mg PO HS [facility] Last Admin: 06/20/18 21:39 Dose: 40 mg Budesonide/Formoterol Fumarate (Symbicort 160/4.5mcg -) 2 puff IH BID [facility] Last Admin: 06/21/18 10:46 Dose: 2 puff Furosemide (Lasix -) 40 mg PO DAILY [facility] Last Admin: 06/21/18 10:41 Dose: 40 mg Gabapentin (Neurontin -) 100 mg PO TID [facility] Last Admin: 06/21/18 06:18 Dose: 100 mg Heparin Sodium (Porcine) (Heparin -) 5,000 unit SQ TID [facility] Last Admin: 06/21/18 06:18 Dose: 5,000 unit Ceftriaxone Sodium 2 gm/ (Dextrose) 100 mls @ 200 mls/hr IVPB DAILY [facility]; Protocol Last Admin: 06/21/18 10:41 Dose: 200 mls/hr Ketoconazole (Nizoral 2% Cream -) 1 applic TP DAILY [facility] Last Admin: 06/20/18 13:42 Dose: 1 applic Lactobacillus Acidophilus (Bacid -) 1 tab PO DAILY [facility] Last Admin: 06/21/18 10:42 Dose: 1 tab Lisinopril (Prinivil) 5 mg PO DAILY [facility] Last Admin: 06/21/18 10:42 Dose: 5 mg Metoprolol Succinate (Toprol Xl -) 12.5 mg PO DAILY [facility] Last Admin: 06/21/18 10:42 Dose: 12.5 mg Mupirocin (Bactroban 2% Ointment -) 1 applic TP BID [facility] Last Admin: 06/20/18 21:45 Dose: 1 applic Non-Formulary Medication (Aclidinium [place] [Tudorza Pressair]) 1 puff IH AM [facility] A/P Shortness of breath improving Acute on Likely Chronic Hypoxic and Hypercapneic Respiratory Failure Acute COPD Exacerbation Acute on Chronic Systolic Heart Failure Cellulitis - inhaled bronchodilators standing and PRN - O2 to keep SpO2 >90% - continue lasix - monitor urine output, creatinine - antibiotics per ID - DVT prophylaxis - when ready for discharge, check ambulatory SpO2 on room air to assess for home O2 Problem List - Problems (1) COPD exacerbation Code(s): J44.1 - CHRONIC OBSTRUCTIVE PULMONARY DISEASE W (ACUTE) EXACERBATION (2) Cellulitis Code(s): L03.90 - CELLULITIS, UNSPECIFIED Qualifiers: Site of cellulitis: extremity Site of cellulitis of extremity: lower extremity Laterality: unspecified laterality Qualified Code(s): L03.119 - Cellulitis of unspecified part of limb (3) Congestive heart failure Code(s): I50.9 - HEART FAILURE, UNSPECIFIED (4) Hypoxia Code(s): R09.02 - HYPOXEMIA (5) Tobacco abuse Code(s): Z72.0 - TOBACCO USE
--- NOTE | 2018-06-21 14:37 | PN ---
Teaching Attending Note Name of Resident: Tesfaye Gomez ATTENDING PHYSICIAN STATEMENT I saw and evaluated the patient. I reviewed the resident's note and discussed the case with the resident. I agree with the resident's findings and plan as documented. SUBJECTIVE: Mild dyspnea. Some ongoing discomfort LEs. OBJECTIVE: Afebrile, Hemodynamically Stable. Last Vital Signs Temp Pulse Resp BP Pulse Ox 99.2 F 87 20 114/42 L 97 06/21/18 13:10 06/21/18 13:10 06/21/18 13:10 06/21/18 13:10 06/20/18 21:00 HEENT - Atraumatic. Normocephalic. Heart - S1, S2, RRR Lungs - decreased air entry at bases. No crackles/wheeze. Abdomen - Soft, non-tender. Bowel Sounds normal. Extremities - Bilateral chronic venous stasis skin changes with b/l LE ulcers, thickened yellow toe nails. Extremities neurovascularly intact Laboratory Results - last 24 hr 06/21/18 06/21/18 06:35 06:35 WBC 5.5 RBC 3.86 Hgb 12.5 Hct 36.8 MCV 95.5 MCH 32.4 MCHC 33.9 RDW 15.2 Plt Count 207 MPV 8.9 Sodium 142 Potassium 4.4 Chloride 102 Carbon Dioxide 36 H Anion Gap 5 L BUN 27 H Creatinine 1.7 H Creat Clearance w eGFR 29.71 Random Glucose 78 Calcium 8.3 L Total Bilirubin 0.5 AST 25 ALT 9 L Alkaline Phosphatase 126 H Total Protein 5.4 L Albumin 2.2 L Current Medications Generic Name Dose Route Start Last Admin Trade Name Freq PRN Reason Stop Dose Admin Albuterol Sulfate 1 amp 06/17/18 17:53 06/21/18 12:22 Ventolin 0.083% Nebulizer Soln - NEB 1 amp Q6H PRN Administration SHORT OF BREATH/WHEEZING Aspirin 81 mg 06/16/18 15:45 06/21/18 10:41 Asa - PO 81 mg DAILY [facility] Administration Atorvastatin Calcium 40 mg 06/16/18 22:00 06/20/18 21:39 Lipitor - PO 40 mg HS [facility]SE Administration Budesonide/Formoterol Fumarate 2 puff 06/17/18 22:00 06/21/18 10:46 Symbicort 160/4.5mcg - IH 2 puff BID [facility]SE Administration Furosemide 40 mg 06/18/18 10:00 06/21/18 10:41 Lasix - PO 40 mg DAILY [facility] Administration Gabapentin 100 mg 06/17/18 22:00 06/21/18 06:18 Neurontin - PO 100 mg TID [facility] Administration Heparin Sodium (Porcine) 5,000 unit 06/17/18 22:00 06/21/18 06:18 Heparin - SQ 5,000 unit TID [facility] Administration Ceftriaxone Sodium 2 gm/ 100 mls @ 200 mls/hr 06/18/18 15:00 06/21/18 10:41 Dextrose IVPB 200 mls/hr DAILY [facility] Administration Protocol Ketoconazole 1 applic 06/16/18 16:33 06/20/18 13:42 Nizoral 2% Cream - TP 1 applic DAILY [facility] Administration Lactobacillus Acidophilus 1 tab 06/18/18 10:00 06/21/18 10:42 Bacid - PO 1 tab DAILY [facility] Administration Lisinopril 5 mg 06/18/18 10:00 06/21/18 10:42 Prinivil PO 5 mg DAILY [facility] Administration Metoprolol Succinate 12.5 mg 06/18/18 10:00 06/21/18 10:42 Toprol Xl - PO 12.5 mg DAILY [facility] Administration Mupirocin 1 applic 06/17/18 22:00 06/20/18 21:45 Bactroban 2% Ointment - TP 1 applic BID [facility] Administration Non-Formulary Medication 1 puff 06/18/18 07:00 Aclidinium [place] [Tudorza Pressair] IH AM [facility] ASSESSMENT AND PLAN: 72 year old female with a history of Chronic Venous Stasis, Chronic systolic heart failure, Hypertension, Hyperlipidemia, COPD who presented with pain and chronic non-healing ulcers of both legs. 1. Bilateral LE Cellulitis/Infected venous stasis ulcers of bilateral lower extremities Wound Cx polymicrobial including Klebsiella and Diphtheroid/Corynebacterium. Continue Ceftriaxone, topical Bactroban to ulcers, topical ketoconazole to feet For switch to Ceftin on discharge. Arterial duplex shows bilateral moderate atherosclerotic disease with abnormal flow - for Vascular Surgery eval and follow up as out-patient. Venous dopplers show no evidence of DVT Afebrile/Hemodynamically Stable. Wound Care ongoing. 2. Onychomycosis of toenails with fungal skin infection of feet and legs Continue topical ketoconazole Podiatry consulted - recommend Ciclopirox on discharge to all nails For outpatient podiatry follow up with Dr. Alvarado. 3. COPD - no evidence of acute exacerbation but patient is hypoxic on room air to 80s on 1-2L via [place] - [facility] progression of COPD to Chronic Respiratory Failure. Continue Symbicort, Tudorza, albuterol as needed. Supplemental O2 on discharge. Repeat CXR to exclude acute process. Pulmonary following. 4. HTN - Continue Toprol XL, Lisinopril, Lasix 5. Hyperlipidemia - Continue Lipitor 6. Chronic systolic heart failure - Stable Echo shows EF 25-30%, global hypokinesis of LV, trace TR Continue Lasix, Lisinopril, Toprol XL Evaluated by Cardio - for out-patient monitoring and eval for AICD. 7. Hypomagnesemia - Resolved s/p repletion. 8. CKD 3 - Creat up to 1.7, will monitor. Continue Lasix for now. DVT Px - Heparin SQ
--- NOTE | 2018-06-21 14:49 | PN ---
Physical Exam: SUBJECTIVE: Patient seen and examined at bedside this morning. Patient endorses improvement of her lower extremity wound pain. She denies subjective fevers, chills overnight. Patient is reluctant to go to rehab, and would prefer to go home, however her daughter would like her to go to rehab facility OBJECTIVE: Vital Signs Period Temp Pulse Resp BP Sys/Maldonado Pulse Ox Last 24 Hr 98 F-99.2 F 76-87 18-20 114-127/42-56 97 GENERAL: The patient is awake, alert, and fully oriented, in no acute distress. HEAD: Normocephalic, atraumatic EYES: PERRL, extraocular movements intact, sclera anicteric, conjunctiva clear without injection B/L. ENT: Oropharynx clear without exudates, moist mucous membranes. NECK: Supple without lymphadenopathy. No JVD noted. LUNGS: Good inspiratory effort, poor air entry B/L. No wheezes, no crackles auscultated. No accessory muscle use. HEART: Regular rate and rhythm, S1, S2 without murmur, rub or gallop. ABDOMEN: Soft, nontender, nondistended. Normoactive bowel sounds X4 quadrants. No guarding, no rebound tenderness. EXTREMITIES: 2+ radial pusles B/L. Lower extremities 1+ pitting edema, tender with dry flaking skin. 7cm X 7cm ulcer noted along right lateral lower extremity , without purulent discharge. 5cm x 3cm ulcer along left lateral lower extremity , without purulence. Onychomycosis noted B/L. NEUROLOGICAL: Cranial nerves II through XII grossly intact. Normal speech. Strength 5/5 B/L upper extremities, strength 4/5 B/L lower extremities. PSYCH: Normal mood, normal affect upon my encounter today. Laboratory Results - last 24 hr 06/21/18 06/21/18 06:35 06:35 WBC 5.5 RBC 3.86 Hgb 12.5 Hct 36.8 MCV 95.5 MCH 32.4 MCHC 33.9 RDW 15.2 Plt Count 207 MPV 8.9 Sodium 142 Potassium 4.4 Chloride 102 Carbon Dioxide 36 H Anion Gap 5 L BUN 27 H Creatinine 1.7 H Creat Clearance w eGFR 29.71 Random Glucose 78 Calcium 8.3 L Total Bilirubin 0.5 AST 25 ALT 9 L Alkaline Phosphatase 126 H Total Protein 5.4 L Albumin 2.2 L Active Medications Generic Name Dose Route Start Last Admin Trade Name Freq PRN Reason Stop Dose Admin Albuterol Sulfate 1 amp 06/17/18 17:53 06/21/18 12:22 Ventolin 0.083% Nebulizer Soln - NEB 1 amp Q6H PRN Administration SHORT OF BREATH/WHEEZING Aspirin 81 mg 06/16/18 15:45 06/21/18 10:41 Asa - PO 81 mg DAILY [facility] Administration Atorvastatin Calcium 40 mg 06/16/18 22:00 06/20/18 21:39 Lipitor - PO 40 mg HS [facility] Administration Budesonide/Formoterol Fumarate 2 puff 06/17/18 22:00 06/21/18 10:46 Symbicort 160/4.5mcg - IH 2 puff BID [facility] Administration Furosemide 40 mg 06/18/18 10:00 06/21/18 10:41 Lasix - PO 40 mg DAILY [facility] Administration Gabapentin 100 mg 06/17/18 22:00 06/21/18 06:18 Neurontin - PO 100 mg TID [facility] Administration Heparin Sodium (Porcine) 5,000 unit 06/17/18 22:00 06/21/18 06:18 Heparin - SQ 5,000 unit TID [facility] Administration Ceftriaxone Sodium 2 gm/ 100 mls @ 200 mls/hr 06/18/18 15:00 06/21/18 10:41 Dextrose IVPB 200 mls/hr DAILY [facility] Administration Protocol Ketoconazole 1 applic 06/16/18 16:33 06/20/18 13:42 Nizoral 2% Cream - TP 1 applic DAILY [facility] Administration Lactobacillus Acidophilus 1 tab 06/18/18 10:00 06/21/18 10:42 Bacid - PO 1 tab DAILY [facility] Administration Lisinopril 5 mg 06/18/18 10:00 06/21/18 10:42 Prinivil PO 5 mg DAILY [facility] Administration Metoprolol Succinate 12.5 mg 06/18/18 10:00 06/21/18 10:42 Toprol Xl - PO 12.5 mg DAILY [facility] Administration Mupirocin 1 applic 06/17/18 22:00 06/20/18 21:45 Bactroban 2% Ointment - TP 1 applic BID [facility] Administration Non-Formulary Medication 1 puff 06/18/18 07:00 Aclidinium [place] [Tudorza Pressair] IH AM [facility] Lower extremity arterial doppler shows moderate atherosclerotic disease with abnormal monophasic flow bilateraly. Lower extremity venous duplex shows no evidence of DVT ASSESSMENT/PLAN: Patient is a 72 year old female with history of chronic lower extremity venous stasis, hypertension, COPD, and congestive heart failure presents with complaint of bilateral lower extremity wounds with purulent drainage. Lower extremity venous stasis wounds -Wounds likely secondary to long standing venous stasis. -Ceftriaxone 2 grams IV daily. Will convert to Ceftin upon discharge. -Wound cultures right leg (06/16) grow Klebsiella Oxytoca, Proteus Vulgaris, Enterococcus Avium, Diphtheroid/ Corynebacterium -Wound cultures left leg (06/16) grow Klebsiella Oxytoca, Alpha hemolytic Streptococcus, Diphtheroid/ Corynebacterium -Bactroban 2% ointment applied BID prior to dressing application -Pain control with gabapentin 100mg PO TID -Vascular surgery, wound care consult (Dr. Nevarez) appreciated -ID consult (Dr. Santiago) appreciated. COPD -Patient noted with increasing oxygen demand of 4L nasal canula to maintain oxygenation above 90% -F/U repeat chest radiograph -Symbicort 160/ 4.5mcg 2puff BID -Tudorza 1 puff daily -Albuterol nebulizer 1 amp Q6H PRN for shortness of breath -Pulmonology consult (Dr. Phillips) appreciated Lower extremity fungal infection, onychomycosis -Ketoconazole topical ointment 1 application TP daily -Podiatry consult (Dr. Pierre) appreciated. Congestive heart failure -Cardiac ECHO shows: Severely reduced EF = 25-20%, with LV hypokinesis. -Lisinopril 5mg PO daily -Metoprolol 12.5mg PO daily -Lasix 40mg PO daily -Cardiology consult (Dr. Jacinto) appreciated -Daily weights, strict intake and output. Hypertension -Patient is receiving Lisinopril, Metoprolol, Lasix. Hyperlipidemia -Atorvastatin 40mg PO HS FEN -No IV fluids indicated. -Follow CMP -Sodium controlled diet Prophylaxis -Heparin 5000u subq TID Disposition -Continue care in medical- surgical floor. Patient will require SNF placement. Patient will require home oxygen Visit type - Emergency Visit Emergency Visit: Yes ED Registration Date: 06/16/18 Care time: The patient presented to the Emergency Department on the above date and was hospitalized for further evaluation of their emergent condition. - New Patient This patient is new to me today: No - Critical Care Critical Care patient: No - Discharge Referral Referred to [facility] Med P.C.: No
[2018-06-21] MEDS: MUPIROCIN 2% TOPICAL OINTMENT 22 GM TUBE TP SCH ×2 (18:34→21:22)
[2018-06-21] MEDS: KETOCONOZOLE 2% TOPICAL CREAM 15 GM TUBE TP SCH (18:35)
[2018-06-21] MEDS: ATORVASTATIN CA 40 MG TABLET (FP) PO SCH (21:22)
[2018-06-22] MEDS ORDERED: PT OWN MED DRAWER 7, Y5N ONE ×2 (01:50→10:51)
[2018-06-22] MEDS: GABAPENTIN 100 MG CAPSULE (FP) PO SCH ×3 (05:53→21:04)
[2018-06-22] MEDS: HEPARIN NA (PORCINE) 5,000 UNITS/ML 1ML VIAL SQ SCH ×3 (05:53→21:04)
[2018-06-22 07:26] LABS: HEMATOCRIT 33.7 % (32.4-45.2); HEMOGLOBIN 11.3 GM/dL (10.7-15.3); MCH 32.1 pg (25.7-33.7); MCHC 33.6 g/dl (32.0-36.0); MEAN CELL VOLUME 95.4 fl (80-96); MEAN PLT VOLUME 8.3 fl (7.5-11.1); PLATELET COUNT 190 K/MM3 (134-434); RBC 3.53 M/mm3 (3.60-5.2); RDW 14.9 % (11.6-15.6); WHITE BLOOD COUNT 5.8 K/mm3 (4.0-10.0)
[2018-06-22 08:03] LABS: ALBUMIN 2.2 g/dl (3.4-5.0); ALK PHOS 114 U/L (45-117); ANION GAP 6 MMOL/L (8-16); BILIRUBIN,TOTAL 0.7 mg/dL (0.2-1); BLOOD UREA NITROGEN 27 mg/dL (7-18); CALCIUM 8.5 mg/dL (8.5-10.1); CHLORIDE 99 mmol/L (98-107); CO2 36 mmol/L (21-32); CREATININE 1.9 mg/dL (0.55-1.3); GLUCOSE,RANDOM 94 mg/dL (74-106); POTASSIUM 4.1 mmol/L (3.5-5.1); SGOT/AST 21 U/L (15-37); SGPT/ALT < 6 U/L (13-61); SODIUM 140 mmol/L (136-145); TOT PROT 5.2 g/dl (6.4-8.2)
[2018-06-22] MEDS: MUPIROCIN 2% TOPICAL OINTMENT 22 GM TUBE TP SCH ×2 (09:00→23:06)
[2018-06-22] MEDS: KETOCONOZOLE 2% TOPICAL CREAM 15 GM TUBE TP SCH (09:00)
[2018-06-22] MEDS ORDERED: DEXTROSE 5%-WATER 100 ML IVPB ONE (10:51)
[2018-06-22] MEDS: ASPIRIN 81 MG CHEWABLE TABLETS PO SCH (10:52)
[2018-06-22] MEDS: CEFTRIAXONE 2 GM in DEXTROSE 5%-WATER 100 ML IVPB SCH (10:57)
--- NOTE | 2018-06-22 11:39 | PN ---
Progress Note (short form) - Note Progress Note: s: no cp sob palps dizzy. o: Vital Signs Period Temp Pulse Resp BP Sys/Maldonado Pulse Ox Last 24 Hr 98.0 F-99.4 F 64-90 18-20 98-142/42-63 92 nad no jvd rrr s1s2 no mrg cta bl nl eff aaox3 chronic venous stasis changes of legs b/l with open wounds and erythema, nonpit edema abd nt nd pos bs no jaundice diaphoresis Current Medications Albuterol Sulfate (Ventolin 0.083% Nebulizer Soln -) 1 amp NEB Q6H PRN PRN Reason: SHORT OF BREATH/WHEEZING Last Admin: 06/21/18 20:01 Dose: 1 amp Aspirin (Asa -) 81 mg PO DAILY [facility] Last Admin: 06/22/18 10:52 Dose: 81 mg Atorvastatin Calcium (Lipitor -) 40 mg PO HS [facility] Last Admin: 06/21/18 21:22 Dose: 40 mg Budesonide/Formoterol Fumarate (Symbicort 160/4.5mcg -) 2 puff IH BID [facility] Last Admin: 06/21/18 21:32 Dose: 2 puff Furosemide (Lasix -) 40 mg PO DAILY [facility] Last Admin: 06/21/18 10:41 Dose: 40 mg Gabapentin (Neurontin -) 100 mg PO TID [facility] Last Admin: 06/22/18 05:53 Dose: 100 mg Heparin Sodium (Porcine) (Heparin -) 5,000 unit SQ TID [facility] Last Admin: 06/22/18 05:53 Dose: 5,000 unit Ceftriaxone Sodium 2 gm/ (Dextrose) 100 mls @ 200 mls/hr IVPB DAILY [facility]; Protocol Last Admin: 06/22/18 10:57 Dose: 200 mls/hr Ketoconazole (Nizoral 2% Cream -) 1 applic TP DAILY [facility] Last Admin: 06/21/18 18:35 Dose: 1 applic Lactobacillus Acidophilus (Bacid -) 1 tab PO DAILY [facility] Last Admin: 06/21/18 10:42 Dose: 1 tab Lisinopril (Prinivil) 5 mg PO DAILY [facility] Last Admin: 06/21/18 10:42 Dose: 5 mg Metoprolol Succinate (Toprol Xl -) 12.5 mg PO DAILY [facility] Last Admin: 06/21/18 10:42 Dose: 12.5 mg Mupirocin (Bactroban 2% Ointment -) 1 applic TP BID [facility] Last Admin: 06/21/18 21:22 Dose: Not Given Non-Formulary Medication (Aclidinium [place] [Tudorza Pressair]) 1 puff IH AM [facility] cta chest: no pe, no chf ecg: sinus tachy, nl intervals, no ischemic changes echo 06/2015: lvef 35-40, global hk, mild tr, nl rvsp echo 06/2018: lvef 25-30, global hk, rv tds, no sig valve path CXR no acute process a/p: 72 f hx syst chf, hld, copd, htn, here with chronic non healing leg wounds. le edema/venous insuff/cellulitis/ulcers: -cont abx per ID -cont lasix po chronic syst chf: -no signs pulm edema or acute chf, no congestion on CXR - continue home lasix -cont toprol, lisinopril - med titration limited by elevated Cr, low BPs - would defer discussion of ICD currently, recent drop in EF <35%, advised to follow up as outpatient hld: -cont statin htn: -cont home meds
[2018-06-22] MEDS: LISINOPRIL 5 MG TABLET (FP) PO SCH (12:02)
[2018-06-22] MEDS: FUROSEMIDE 40 MG TABLET (FP) PO SCH (12:03)
[2018-06-22] MEDS: BUDESONIDE/FORMETEROL FUMARATE 160/4.5 mcg INHALER IH SCH ×2 (12:17→23:06)
[2018-06-22] MEDS: LACTOBACILLUS ACIDOPHILUS 1 TABLET PO SCH (12:18)
[2018-06-22] MEDS: metoPROLOL SUCCINATE 25 MG TAB.SR.24H (FP) PO SCH (12:40)
--- NOTE | 2018-06-22 12:58 | PN ---
Progress Note, Physician History of Present Illness: PULMONARY ALERT,OOB-CHAIR,COMFORTABLE,-CP,-SOB - Current Medication List Current Medications: Active Medications Albuterol Sulfate (Ventolin 0.083% Nebulizer Soln -) 1 amp NEB Q6H PRN PRN Reason: SHORT OF BREATH/WHEEZING Last Admin: 06/21/18 20:01 Dose: 1 amp Aspirin (Asa -) 81 mg PO DAILY [facility] Last Admin: 06/22/18 10:52 Dose: 81 mg Atorvastatin Calcium (Lipitor -) 40 mg PO HS [facility] Last Admin: 06/21/18 21:22 Dose: 40 mg Budesonide/Formoterol Fumarate (Symbicort 160/4.5mcg -) 2 puff IH BID [facility] Last Admin: 06/22/18 12:17 Dose: 2 puff Furosemide (Lasix -) 40 mg PO DAILY [facility] Last Admin: 06/22/18 12:03 Dose: Not Given Gabapentin (Neurontin -) 100 mg PO TID [facility] Last Admin: 06/22/18 05:53 Dose: 100 mg Heparin Sodium (Porcine) (Heparin -) 5,000 unit SQ TID [facility] Last Admin: 06/22/18 05:53 Dose: 5,000 unit Ceftriaxone Sodium 2 gm/ (Dextrose) 100 mls @ 200 mls/hr IVPB DAILY [facility]; Protocol Last Admin: 06/22/18 10:57 Dose: 200 mls/hr Ketoconazole (Nizoral 2% Cream -) 1 applic TP DAILY [facility] Last Admin: 06/21/18 18:35 Dose: 1 applic Lactobacillus Acidophilus (Bacid -) 1 tab PO DAILY [facility] Last Admin: 06/22/18 12:18 Dose: 1 tab Lisinopril (Prinivil) 5 mg PO DAILY [facility] Last Admin: 06/22/18 12:02 Dose: Not Given Metoprolol Succinate (Toprol Xl -) 12.5 mg PO DAILY [facility] Last Admin: 06/22/18 12:40 Dose: Not Given Mupirocin (Bactroban 2% Ointment -) 1 applic TP BID [facility] Last Admin: 06/21/18 21:22 Dose: Not Given Non-Formulary Medication (Aclidinium [place] [Tudorza Pressair]) 1 puff IH AM [facility] - Objective Vital Signs: Vital Signs Temperature 98.0 F 06/22/18 06:00 Pulse Rate 68 01/16/19 12:26 Respiratory Rate 18 06/22/18 12:26 Blood Pressure 104/48 L 06/22/18 12:26 O2 Sat by Pulse Oximetry (%) 92 L 06/21/18 21:00 Constitutional: Yes: Well Nourished, Calm Eyes: Yes: WNL HENT: Yes: WNL Neck: Yes: WNL Cardiovascular: Yes: Regular Rate and Rhythm, S1, S2 Respiratory: Yes: Diminished, Rhonchi (SCATTERED RHONCHI) Gastrointestinal: Yes: Normal Bowel Sounds, Soft Extremities: Yes: Other (WRAPPED) Labs: CBC, BMP 06/22/18 06:00 06/22/18 06:00 INR, PTT INR 1.13 (0.83-1.09) H 06/16/18 07:20 Problem List - Problems (1) Acute on chronic respiratory failure with hypoxia and hypercapnia Code(s): J96.21 - ACUTE AND CHRONIC RESPIRATORY FAILURE WITH HYPOXIA; J96.22 - ACUTE AND CHRONIC RESPIRATORY FAILURE WITH HYPERCAPNIA Assessment/Plan Problem List - Problems (1) COPD exacerbation Code(s): J44.1 - CHRONIC OBSTRUCTIVE PULMONARY DISEASE W (ACUTE) EXACERBATION (2) Cellulitis Code(s): L03.90 - CELLULITIS, UNSPECIFIED Qualifiers: Site of cellulitis: extremity Site of cellulitis of extremity: lower extremity Laterality: unspecified laterality Qualified Code(s): L03.119 - Cellulitis of unspecified part of limb (3) Congestive heart failure Code(s): I50.9 - HEART FAILURE, UNSPECIFIED (4) Hypoxia Code(s): R09.02 - HYPOXEMIA (5) Tobacco abuse Code(s): Z72.0 - TOBACCO USE Assessment/Plan Shortness of breath improving Acute on Likely Chronic Hypoxic and Hypercapneic Respiratory Failure Acute COPD Exacerbation Acute on Chronic Systolic Heart Failure Cellulitis - Offered short course of systemic steroids but per patient/daughter, patient does not tolerate steroids well - Inhaled bronchodilators standing and PRN - O2 to keep SpO2 >90% - Lasix - Monitor urine output, creatinine - Antibiotics per ID - DVT prophylaxis DR LEMON
--- NOTE | 2018-06-22 14:11 | PN ---
Teaching Attending Note Name of Resident: Tesfaye Gomez ATTENDING PHYSICIAN STATEMENT I saw and evaluated the patient. I reviewed the resident's note and discussed the case with the resident. I agree with the resident's findings and plan as documented. SUBJECTIVE: Some ongoing discomfort LEs. No other complaints. OBJECTIVE: Afebrile, Hemodynamically Stable. Last Vital Signs Temp Pulse Resp BP Pulse Ox 98.2 F 74 18 98/48 L 92 L 06/22/18 13:44 06/22/18 13:44 06/22/18 13:44 06/22/18 13:44 06/21/18 21:00 HEENT - Atraumatic. Normocephalic. Heart - S1, S2, RRR Lungs - decreased air entry at bases. No crackles/wheeze. Abdomen - Soft, non-tender. Bowel Sounds normal. Extremities - Bilateral chronic venous stasis skin changes with b/l LE ulcers, thickened yellow toe nails. Extremities neurovascularly intact Laboratory Results - last 24 hr 06/22/18 06/22/18 06:00 06:00 WBC 5.8 RBC 3.53 L Hgb 11.3 Hct 33.7 MCV 95.4 MCH 32.1 MCHC 33.6 RDW 14.9 Plt Count 190 MPV 8.3 Sodium 140 Potassium 4.1 Chloride 99 Carbon Dioxide 36 H Anion Gap 6 L BUN 27 H Creatinine 1.9 H Creat Clearance w eGFR 26.13 Random Glucose 94 Calcium 8.5 Total Bilirubin 0.7 AST 21 ALT < 6 L Alkaline Phosphatase 114 Total Protein 5.2 L Albumin 2.2 L Current Medications Generic Name Dose Route Start Last Admin Trade Name Freq PRN Reason Stop Dose Admin Albuterol Sulfate 1 amp 06/17/18 17:53 06/21/18 20:01 Ventolin 0.083% Nebulizer Soln - NEB 1 amp Q6H PRN Administration SHORT OF BREATH/WHEEZING Aspirin 81 mg 06/16/18 15:45 06/22/18 10:52 Asa - PO 81 mg DAILY [facility] Administration Atorvastatin Calcium 40 mg 06/16/18 22:00 06/21/18 21:22 Lipitor - PO 40 mg HS [facility] Administration Budesonide/Formoterol Fumarate 2 puff 06/17/18 22:00 06/22/18 12:17 Symbicort 160/4.5mcg - IH 2 puff BID [facility] Administration Furosemide 40 mg 06/18/18 10:00 06/22/18 12:03 Lasix - PO Not Given DAILY [facility] Gabapentin 100 mg 06/17/18 22:00 06/22/18 05:53 Neurontin - PO 100 mg TID [facility] Administration Heparin Sodium (Porcine) 5,000 unit 06/17/18 22:00 06/22/18 05:53 Heparin - SQ 5,000 unit TID [facility] Administration Ceftriaxone Sodium 2 gm/ 100 mls @ 200 mls/hr 06/18/18 15:00 06/22/18 10:57 Dextrose IVPB 200 mls/hr DAILY [facility] Administration Protocol Ketoconazole 1 applic 06/16/18 16:33 06/21/18 18:35 Nizoral 2% Cream - TP 1 applic DAILY [facility] Administration Lactobacillus Acidophilus 1 tab 06/18/18 10:00 06/22/18 12:18 Bacid - PO 1 tab DAILY [facility] Administration Lisinopril 5 mg 06/18/18 10:00 06/22/18 12:02 Prinivil PO Not Given DAILY [facility] Metoprolol Succinate 12.5 mg 06/18/18 10:00 06/22/18 12:40 Toprol Xl - PO Not Given DAILY [facility] Mupirocin 1 applic 06/17/18 22:00 06/21/18 21:22 Bactroban 2% Ointment - TP Not Given BID COUNT INCLUDES [facility] Non-Formulary Medication 1 puff 06/18/18 07:00 Aclidinium [place] [Tudorza Pressair] IH AM COUNT INCLUDES [facility] ASSESSMENT AND PLAN: 72 year old female with a history of HTN, HLD, Chronic Venous Stasis, Chronic systolic heart failure, Hypertension, Hyperlipidemia, COPD who presented with pain and chronic non-healing ulcers of both legs. 1. Bilateral LE Cellulitis/Infected venous stasis ulcers of bilateral lower extremities Wound Cx polymicrobial including Klebsiella and Diphtheroid/Corynebacterium. Continue Ceftriaxone, topical Bactroban to ulcers, topical ketoconazole to feet For switch to Ceftin on discharge. Arterial duplex shows bilateral moderate atherosclerotic disease with abnormal flow - for Vascular Surgery evaluation. Venous dopplers show no evidence of DVT Afebrile/Hemodynamically Stable. Wound Care ongoing. 2. Onychomycosis of toenails with fungal skin infection of feet and legs Continue topical ketoconazole Podiatry consulted - recommend Ciclopirox on discharge to all nails For outpatient podiatry follow up with Dr. Alvarado. 3. COPD - no evidence of acute exacerbation but patient is hypoxic on room air to 80s on 1-2L via NC - likley progression of COPD to Chronic Respiratory Failure. Continue Symbicort, Tudorza, albuterol as needed. Supplemental O2 on discharge. Repeat CXR excludes acute pulmonary process. Pulmonary following. 4. HTN - Continue Toprol XL, Lisinopril 5. Hyperlipidemia - Continue Lipitor 6. Chronic systolic heart failure - Stable Echo shows EF 25-30%, global hypokinesis of LV, trace TR Has been receiving Lasix, Lisinopril, Toprol XL Will hold Lasix and Lisinopril currently due to worsening renal function. Evaluated by Cardio - for out-patient monitoring and eval for AICD. No ischemic work-up as in-patient as per Cardiology. 7. JOHN - etiology unclear. Patient was taking home dose of Lasix. Creatinine slowly crept up, now 1.9. Renal US requested. Will consult Nephrology. 8. Hypomagnesemia - Resolved s/p repletion. DVT Px - Heparin SQ
--- NOTE | 2018-06-22 15:05 | PN ---
Physical Exam: SUBJECTIVE: Patient seen and examined at bedside this morning. She endorses pain in lower extremities only with dressing changes. Patient is in agreement with outpatient rehab upon discharge. Denies subjective fevers, chills, shortness of breath, chest pain, palpitations, abdominal pain, nausea, vomiting. OBJECTIVE: Vital Signs Period Temp Pulse Resp BP Sys/[place] Pulse Ox Last 24 Hr 98.0 F-99.4 F 64-90 18-20 98-142/42-63 92 GENERAL: The patient is awake, alert, and fully oriented, in no acute distress. HEAD: Normocephalic, atraumatic EYES: PERRL, extraocular movements intact, sclera anicteric, conjunctiva clear without injection B/L. ENT: Oropharynx clear without exudates, moist mucous membranes. NECK: Supple without lymphadenopathy. No JVD noted. LUNGS: Good inspiratory effort, poor air entry B/L. No wheezes, no crackles auscultated. No accessory muscle use. HEART: Regular rate and rhythm, S1, S2 without murmur, rub or gallop. ABDOMEN: Soft, nontender, nondistended. Normoactive bowel sounds X4 quadrants. No guarding, no rebound tenderness. EXTREMITIES: 2+ radial pusles B/L. Lower extremities 1+ pitting edema, tender with dry flaking skin. 7cm X 7cm ulcer noted along right lateral lower extremity , without purulent discharge. 5cm x 3cm ulcer along left lateral lower extremity , without purulence. Onychomycosis noted B/L. NEUROLOGICAL: Cranial nerves II through XII grossly intact. Normal speech. Strength 5/5 B/L upper extremities, strength 4/5 B/L lower extremities. PSYCH: Normal mood, normal affect upon my encounter today. Laboratory Results - last 24 hr 06/22/18 06/22/18 06:00 06:00 WBC 5.8 RBC 3.53 L Hgb 11.3 Hct 33.7 MCV 95.4 MCH 32.1 MCHC 33.6 RDW 14.9 Plt Count 190 MPV 8.3 Sodium 140 Potassium 4.1 Chloride 99 Carbon Dioxide 36 H Anion Gap 6 L BUN 27 H Creatinine 1.9 H Creat Clearance w eGFR 26.13 Random Glucose 94 Calcium 8.5 Total Bilirubin 0.7 AST 21 ALT < 6 L Alkaline Phosphatase 114 Total Protein 5.2 L Albumin 2.2 L Active Medications Generic Name Dose Route Start Last Admin Trade Name Freq PRN Reason Stop Dose Admin Albuterol Sulfate 1 amp 06/17/18 17:53 06/21/18 20:01 Ventolin 0.083% Nebulizer Soln - NEB 1 amp Q6H PRN Administration SHORT OF BREATH/WHEEZING Aspirin 81 mg 06/16/18 15:45 06/22/18 10:52 Asa - PO 81 mg DAILY [facility] Administration Atorvastatin Calcium 40 mg 06/16/18 22:00 06/21/18 21:22 Lipitor - PO 40 mg HS [facility] Administration Budesonide/Formoterol Fumarate 2 puff 06/17/18 22:00 06/22/18 12:17 Symbicort 160/4.5mcg - IH 2 puff BID [facility] Administration Furosemide 40 mg 06/18/18 10:00 06/22/18 12:03 Lasix - PO Not Given DAILY [facility] Gabapentin 100 mg 06/17/18 22:00 06/22/18 05:53 Neurontin - PO 100 mg TID [facility] Administration Heparin Sodium (Porcine) 5,000 unit 06/17/18 22:00 06/22/18 05:53 Heparin - SQ 5,000 unit TID [facility] Administration Ceftriaxone Sodium 2 gm/ 100 mls @ 200 mls/hr 06/18/18 15:00 06/22/18 10:57 Dextrose IVPB 200 mls/hr DAILY [facility] Administration Protocol Ketoconazole 1 applic 06/16/18 16:33 06/21/18 18:35 Nizoral 2% Cream - TP 1 applic DAILY [facility] Administration Lactobacillus Acidophilus 1 tab 06/18/18 10:00 06/22/18 12:18 Bacid - PO 1 tab DAILY [facility] Administration Lisinopril 5 mg 06/18/18 10:00 06/22/18 12:02 Prinivil PO Not Given DAILY [facility] Metoprolol Succinate 12.5 mg 06/18/18 10:00 06/22/18 12:40 Toprol Xl - PO Not Given DAILY [facility] Mupirocin 1 applic 06/17/18 22:00 06/21/18 21:22 Bactroban 2% Ointment - TP Not Given BID [facility] Non-Formulary Medication 1 puff 06/18/18 07:00 Aclidinium [place] [Tudorza Pressair] IH AM [facility] Lower extremity arterial doppler shows moderate atherosclerotic disease with abnormal monophasic flow bilateraly. Lower extremity venous duplex shows no evidence of DVT ASSESSMENT/PLAN: Patient is a 72 year old female with history of chronic lower extremity venous stasis, hypertension, COPD, and congestive heart failure presents with complaint of bilateral lower extremity wounds with purulent drainage. Lower extremity venous stasis wounds -Wounds likely secondary to long standing venous stasis. -Ceftriaxone 2 grams IV daily. Will convert to Ceftin upon discharge. -Wound cultures right leg (06/16) grow Klebsiella Oxytoca, Proteus Vulgaris, Enterococcus Avium, Diphtheroid/ Corynebacterium -Wound cultures left leg (06/16) grow Klebsiella Oxytoca, Alpha hemolytic Streptococcus, Diphtheroid/ Corynebacterium -Bactroban 2% ointment applied BID prior to dressing application -Pain control with gabapentin 100mg PO TID -Vascular surgery, wound care consult (Dr. Nevarez) appreciated -ID consult (Dr. Santiago) appreciated. Acute kidney injury -BUN 27, Cr 1.9 (baseline approx. 1.0) -Holding home Lisinopril, Lasix -F/U renal US -Nephrology consult (Dr. Nina) COPD -Patient saturating well on 4L nasal canula to maintain oxygenation above 90% -Repeat chest radiograph shows no acute pathology. -Symbicort 160/ 4.5mcg 2puff BID -Tudorza 1 puff daily -Albuterol nebulizer 1 amp Q6H PRN for shortness of breath -Pulmonology consult (Dr. Phillips) appreciated Lower extremity fungal infection, onychomycosis -Ketoconazole topical ointment 1 application TP daily -Podiatry consult (Dr. Pierre) appreciated. Congestive heart failure -Cardiac ECHO shows: Severely reduced EF = 25-20%, with LV hypokinesis. -Lisinopril 5mg PO daily -Metoprolol 12.5mg PO daily -Lasix 40mg PO daily -Cardiology consult (Dr. Jacinto) appreciated -Daily weights, strict intake and output. Hypertension -Patient is receiving Lisinopril, Metoprolol, Lasix. Hyperlipidemia -Atorvastatin 40mg PO HS [facility] -No IV fluids indicated. -Follow CMP -Sodium controlled diet Prophylaxis -Heparin 5000u subq TID Disposition -Continue care in medical- surgical floor. Patient will require SNF placement. Patient will require home oxygen Visit type - Emergency Visit Emergency Visit: Yes ED Registration Date: 06/16/18 Care time: The patient presented to the Emergency Department on the above date and was hospitalized for further evaluation of their emergent condition. - New Patient This patient is new to me today: No - Critical Care Critical Care patient: No - Discharge Referral Referred to [facility] Med P.C.: No
[2018-06-22] MEDS: ATORVASTATIN CA 40 MG TABLET (FP) PO SCH (21:04)
[2018-06-23] MEDS: HEPARIN NA (PORCINE) 5,000 UNITS/ML 1ML VIAL SQ SCH ×3 (05:40→21:11)
[2018-06-23] MEDS: GABAPENTIN 100 MG CAPSULE (FP) PO SCH ×3 (05:40→21:11)
--- NOTE | 2018-06-23 07:16 | PN ---
Physical Exam: SUBJECTIVE: Patient seen and examined at bedside this morning. Patient denies acute complaints today. She denies subjective fevers, chills, shortness of breath, chest pain, palpitations, abdominal pain, nausea, vomiting. OBJECTIVE: Vital Signs Period Temp Pulse Resp BP Sys/[place] Pulse Ox Last 24 Hr 97.5 F-98.2 F 64-96 18-18 98-126/48-64 93-93 GENERAL: The patient is awake, alert, and fully oriented, in no acute distress. HEAD: Normocephalic, atraumatic EYES: PERRL, extraocular movements intact, sclera anicteric, conjunctiva clear without injection B/L. ENT: Oropharynx clear without exudates, moist mucous membranes. NECK: Supple without lymphadenopathy. No JVD noted. LUNGS: Good inspiratory effort, and air entry B/L. No wheezes, no crackles auscultated. No accessory muscle use. HEART: Regular rate and rhythm, S1, S2 without murmur, rub or gallop. ABDOMEN: Soft, nontender, nondistended. Normoactive bowel sounds X4 quadrants. No guarding, no rebound tenderness. EXTREMITIES: 2+ radial pusles B/L. Lower extremities 1+ pitting edema, tender with dry flaking skin. 7cm X 7cm ulcer noted along right lateral lower extremity , without purulent discharge. 5cm x 3cm ulcer along left lateral lower extremity , without purulence. Onychomycosis noted B/L. NEUROLOGICAL: Cranial nerves II through XII grossly intact. Normal speech. Strength 5/5 B/L upper extremities, strength 4/5 B/L lower extremities. PSYCH: Normal mood, normal affect upon my encounter today. Laboratory Results - last 24 hr 06/22/18 06/22/18 06:00 06:00 WBC 5.8 RBC 3.53 L Hgb 11.3 Hct 33.7 MCV 95.4 MCH 32.1 MCHC 33.6 RDW 14.9 Plt Count 190 MPV 8.3 Sodium 140 Potassium 4.1 Chloride 99 Carbon Dioxide 36 H Anion Gap 6 L BUN 27 H Creatinine 1.9 H Creat Clearance w eGFR 26.13 Random Glucose 94 Calcium 8.5 Total Bilirubin 0.7 AST 21 ALT < 6 L Alkaline Phosphatase 114 Total Protein 5.2 L Albumin 2.2 L Active Medications Generic Name Dose Route Start Last Admin Trade Name Sebastien PRN Reason Stop Dose Admin Aspirin 81 mg 06/16/18 15:45 06/22/18 10:52 Asa - PO 81 mg DAILY [facility] Administration Atorvastatin Calcium 40 mg 06/16/18 22:00 06/22/18 21:04 Lipitor - PO 40 mg HS [facility] Administration Budesonide/Formoterol Fumarate 2 puff 06/17/18 22:00 06/22/18 23:06 Symbicort 160/4.5mcg - IH 2 puff BID [facility] Administration Furosemide 40 mg 06/18/18 10:00 06/22/18 12:03 Lasix - PO Not Given DAILY [facility] Gabapentin 100 mg 06/17/18 22:00 06/23/18 05:40 Neurontin - PO 100 mg TID [facility] Administration Heparin Sodium (Porcine) 5,000 unit 06/17/18 22:00 06/23/18 05:40 Heparin - SQ 5,000 unit TID [facility] Administration Ceftriaxone Sodium 2 gm/ 100 mls @ 200 mls/hr 06/18/18 15:00 06/22/18 10:57 Dextrose IVPB 200 mls/hr DAILY [facility] Administration Protocol Ketoconazole 1 applic 06/16/18 16:33 06/22/18 09:00 Nizoral 2% Cream - TP 1 applic DAILY [facility] Administration Lactobacillus Acidophilus 1 tab 06/18/18 10:00 06/22/18 12:18 Bacid - PO 1 tab DAILY [facility] Administration Lisinopril 5 mg 06/18/18 10:00 06/22/18 12:02 Prinivil PO Not Given DAILY [facility] Metoprolol Succinate 12.5 mg 06/18/18 10:00 06/22/18 12:40 Toprol Xl - PO Not Given DAILY [facility] Mupirocin 1 applic 06/17/18 22:00 06/22/18 23:06 Bactroban 2% Ointment - TP 1 applic BID [facility] Administration Non-Formulary Medication 1 puff 06/18/18 07:00 Aclidinium [place] [Tudorza Pressair] IH AM [facility] Lower extremity arterial doppler shows moderate atherosclerotic disease with abnormal monophasic flow bilateraly. Lower extremity venous duplex shows no evidence of DVT ASSESSMENT/PLAN: Patient is a 72 year old female with history of chronic lower extremity venous stasis, hypertension, COPD, and congestive heart failure presents with complaint of bilateral lower extremity wounds with purulent drainage. Cellulitis bilateral lower extremities -Wounds likely secondary to long standing venous stasis. -Ceftriaxone 2 grams IV daily. Will convert to Ceftin upon discharge. -Wound cultures right leg (06/16) grow Klebsiella Oxytoca, Proteus Vulgaris, Enterococcus Avium, Diphtheroid/ Corynebacterium -Wound cultures left leg (06/16) grow Klebsiella Oxytoca, Alpha hemolytic Streptococcus, Diphtheroid/ Corynebacterium -Bactroban 2% ointment applied BID prior to dressing application -Pain control with gabapentin 100mg PO TID -Vascular surgery, wound care consult (Dr. Nevarez) appreciated. Patient will continue outpatient follow up. -ID consult (Dr. Santiago) appreciated. Acute kidney injury- improving -Discussed with patient who admits noncompliance with her prior home Lasix dose. JOHN likely secondary to over diuresis. -BUN 27, Cr 1.6 (baseline approx. 1.0) -Holding home Lisinopril, Lasix -Renal US shows no hydronephrosis. Mild renal atrophy noted. -Will discharge with lower Lasix dose. Discussed importance of medication compliance. COPD -Patient saturating well on 4L nasal canula to maintain oxygenation above 90% -Repeat chest radiograph shows no acute pathology. -Symbicort 160/ 4.5mcg 2puff BID -Tudorza 1 puff daily -Albuterol nebulizer 1 amp Q6H PRN for shortness of breath -Pulmonology consult (Dr. Phillips) appreciated Lower extremity fungal infection, onychomycosis bilaterally -Ketoconazole topical ointment 1 application TP daily -Podiatry consult (Dr. Pierre) appreciated. Chronic systolic heart failure -Cardiac ECHO shows: Severely reduced EF = 25-20%, with LV hypokinesis. -Lisinopril 5mg PO daily -Metoprolol 12.5mg PO daily -Lasix 40mg PO daily- held due to JOHN. Will discharge patient with lower dose. -Cardiology consult (Dr. Jacinto) appreciated -Daily weights, strict intake and output. Hypertension -Lasix, Lisinopril held due to JOHN -Metoprolol 12.5mg PO daily with BP holding parameters. Hyperlipidemia -Atorvastatin 40mg PO HS - held due to transaminitis. Will consider reinstating upon discharge. FEN -No IV fluids indicated. -Follow CMP -Sodium controlled diet Prophylaxis -Heparin 5000u subq TID Disposition -Continue care in medical- surgical floor. Patient will require SNF placement. Patient will require home oxygen Visit type - Emergency Visit Emergency Visit: Yes ED Registration Date: 06/16/18 Care time: The patient presented to the Emergency Department on the above date and was hospitalized for further evaluation of their emergent condition. - New Patient This patient is new to me today: No - Critical Care Critical Care patient: No - Discharge Referral Referred to [facility] Med P.C.: No
[2018-06-23 07:54] LABS: ANION GAP 6 MMOL/L (8-16); BLOOD UREA NITROGEN 27 mg/dL (7-18); CALCIUM 8.7 mg/dL (8.5-10.1); CHLORIDE 100 mmol/L (98-107); CO2 36 mmol/L (21-32); CREATININE 1.6 mg/dL (0.55-1.3); GLUCOSE,RANDOM 83 mg/dL (74-106); POTASSIUM 4.3 mmol/L (3.5-5.1); SODIUM 141 mmol/L (136-145)
[2018-06-23] MEDS ORDERED: SODIUM CHLORIDE 1,000 ML IV SCH (09:30)
[2018-06-23] MEDS ORDERED: DEXTROSE 5%-WATER 100 ML IVPB ONE (09:57)
[2018-06-23] MEDS: CEFTRIAXONE 2 GM in DEXTROSE 5%-WATER 100 ML IVPB SCH (10:28)
[2018-06-23] MEDS: ASPIRIN 81 MG CHEWABLE TABLETS PO SCH (10:28)
[2018-06-23] MEDS: LACTOBACILLUS ACIDOPHILUS 1 TABLET PO SCH (10:28)
[2018-06-23] MEDS: MUPIROCIN 2% TOPICAL OINTMENT 22 GM TUBE TP SCH (10:29)
[2018-06-23] MEDS: KETOCONOZOLE 2% TOPICAL CREAM 15 GM TUBE TP SCH (10:29)
[2018-06-23] MEDS: metoPROLOL SUCCINATE 25 MG TAB.SR.24H (FP) PO SCH (10:30)
[2018-06-23] MEDS: BUDESONIDE/FORMETEROL FUMARATE 160/4.5 mcg INHALER IH SCH ×2 (10:32→21:11)
--- NOTE | 2018-06-23 11:30 | PN ---
Teaching Attending Note Name of Resident: Tesfaye Gomez ATTENDING PHYSICIAN STATEMENT I saw and evaluated the patient. I reviewed the resident's note and discussed the case with the resident. I agree with the resident's findings and plan as documented. SUBJECTIVE: Some ongoing discomfort LEs. No other complaints. No SOB/cough/ sputum/CP. OBJECTIVE: Afebrile, Hemodynamically Stable. Last Vital Signs Temp Pulse Resp BP Pulse Ox 97.5 F L 79 18 105/60 93 L 06/23/18 02:00 06/23/18 02:00 06/23/18 02:00 06/23/18 02:00 06/22/18 21:00 HEENT - Atraumatic. Normocephalic. Heart - S1, S2, RRR Lungs - decreased air entry at bases. No crackles/wheeze. Abdomen - Soft, non-tender. Bowel Sounds normal. Extremities - Bilateral chronic venous stasis skin changes with b/l LE ulcers, thickened yellow toe nails. Extremities neurovascularly intact Laboratory Results - last 24 hr 06/23/18 05:55 Sodium 141 Potassium 4.3 Chloride 100 Carbon Dioxide 36 H Anion Gap 6 L BUN 27 H Creatinine 1.6 H Creat Clearance w eGFR 31.87 Random Glucose 83 Calcium 8.7 Current Medications Generic Name Dose Route Start Last Admin Trade Name Freq PRN Reason Stop Dose Admin Aspirin 81 mg 06/16/18 15:45 06/23/18 10:28 Asa - PO 81 mg DAILY ROSE Administration Atorvastatin Calcium 40 mg 06/16/18 22:00 06/22/18 21:04 Lipitor - PO 40 mg HS ROSE Administration Budesonide/Formoterol Fumarate 2 puff 06/17/18 22:00 06/23/18 10:32 Symbicort 160/4.5mcg - IH 2 puff BID ROSE Administration Furosemide 40 mg 06/18/18 10:00 06/22/18 12:03 Lasix - PO Not Given DAILY ROSE Gabapentin 100 mg 06/17/18 22:00 06/23/18 05:40 Neurontin - PO 100 mg TID ROSE Administration Heparin Sodium (Porcine) 5,000 unit 06/17/18 22:00 06/23/18 05:40 Heparin - SQ 5,000 unit TID ROSE Administration Ceftriaxone Sodium 2 gm/ 100 mls @ 200 mls/hr 06/18/18 15:00 06/23/18 10:28 Dextrose IVPB 200 mls/hr DAILY ROSE Administration Protocol Sodium Chloride 1,000 mls @ 100 mls/hr 06/23/18 09:30 06/23/18 10:25 Normal Saline - IV 06/23/18 14:30 100 mls/hr ASDIR ROSE Administration Ketoconazole 1 applic 06/16/18 16:33 06/23/18 10:29 Nizoral 2% Cream - TP 1 applic DAILY ROSE Administration Lactobacillus Acidophilus 1 tab 06/18/18 10:00 06/23/18 10:28 Bacid - PO 1 tab DAILY ROSE Administration Lisinopril 5 mg 06/18/18 10:00 06/22/18 12:02 Prinivil PO Not Given DAILY ROSE Metoprolol Succinate 12.5 mg 06/23/18 09:55 06/23/18 10:30 Toprol Xl - PO Not Given DAILY ROSE Mupirocin 1 applic 06/17/18 22:00 06/23/18 10:29 Bactroban 2% Ointment - TP 1 applic BID ROSE Administration Non-Formulary Medication 1 puff 06/18/18 07:00 Aclidinium [place] [Tudorza Pressair] IH AM ROSE ASSESSMENT AND PLAN: 72 year old female with a history of HTN, HLD, Chronic Venous Stasis, Chronic systolic heart failure, Hypertension, Hyperlipidemia, COPD who presented with pain and chronic non-healing ulcers of both legs. 1. Bilateral LE Cellulitis/Infected venous stasis ulcers of bilateral lower extremities Wound Cx polymicrobial including Klebsiella and Diphtheroid/Corynebacterium. Continue Ceftriaxone, topical Bactroban to ulcers, topical ketoconazole to feet For switch to Ceftin on discharge. Arterial duplex shows bilateral moderate atherosclerotic disease with abnormal flow - for Vascular Surgery re-evaluation for treatment plan. Venous dopplers show no evidence of DVT Afebrile/Hemodynamically Stable. Wound Care ongoing. 2. Onychomycosis of toenails with fungal skin infection of feet and legs Continue topical ketoconazole Podiatry consulted - recommend Ciclopirox on discharge to all nails For outpatient podiatry follow up with [employer] Dr. Alvarado. 3. COPD - no evidence of acute exacerbation but patient is hypoxic on room air to 80s on 1-2L via [place] - [facility] progression of COPD to Chronic Respiratory Failure. Continue Symbicort, Tudorza, albuterol as needed. Supplemental O2 on discharge. Repeat CXR excludes acute pulmonary process. Pulmonary following. 4. HTN - Continue Toprol XL, Lisinopril 5. Hyperlipidemia - Continue Lipitor 6. Chronic systolic heart failure - Stable Echo shows EF 25-30%, global hypokinesis of LV, trace TR Has been receiving Lasix, Lisinopril, Toprol XL Will hold Lasix and Lisinopril currently due to worsening renal function. Evaluated by Cardio - for out-patient monitoring and eval for AICD. No ischemic work-up as in-patient as per Cardiology. 7. JOHN - etiology likely over-diuresis. Renal US - no hydronephrosis, mild R renal atrophy. She was receiving Lasix 40mg daily as in-patient but she now admits to poor/irregular Lasix compliance at home not taking it on some days and taking half dose (20mg) on other days. For gentle hydration and resumption of Lasix at lower dose (20mg daily) once renal function returns to baseline. 8. Hypomagnesemia - Resolved s/p repletion. DVT Px - Heparin SQ.
--- NOTE | 2018-06-23 11:36 | PN ---
Progress Note (short form) - Note Progress Note: PULMONARY Denies shortness of breath. Occasional cough and wheezing. Vital Signs Period Temp Pulse Resp BP Sys/Maldonado Pulse Ox Last 24 Hr 97.5 F-98.2 F 68-96 18-18 98-126/48-64 93 Gen: NAD at rest Heart: RRR Lung: distant breath sounds Abd: soft, nontender Ext: + edema, chronic changes CBC, BMP 06/22/18 06:00 06/23/18 05:55 Active Medications Aspirin (Asa -) 81 mg PO DAILY [facility] Last Admin: 06/23/18 10:28 Dose: 81 mg Atorvastatin Calcium (Lipitor -) 40 mg PO HS [facility] Last Admin: 06/22/18 21:04 Dose: 40 mg Budesonide/Formoterol Fumarate (Symbicort 160/4.5mcg -) 2 puff IH BID [facility] Last Admin: 06/23/18 10:32 Dose: 2 puff Furosemide (Lasix -) 40 mg PO DAILY [facility] Last Admin: 06/22/18 12:03 Dose: Not Given Gabapentin (Neurontin -) 100 mg PO TID [facility] Last Admin: 06/23/18 05:40 Dose: 100 mg Heparin Sodium (Porcine) (Heparin -) 5,000 unit SQ TID [facility] Last Admin: 06/23/18 05:40 Dose: 5,000 unit Ceftriaxone Sodium 2 gm/ (Dextrose) 100 mls @ 200 mls/hr IVPB DAILY [facility]; Protocol Last Admin: 06/23/18 10:28 Dose: 200 mls/hr Sodium Chloride (Normal Saline -) 1,000 mls @ 100 mls/hr IV ASDIR [facility] Stop: 06/23/18 14:30 Last Admin: 06/23/18 10:25 Dose: 100 mls/hr Ketoconazole (Nizoral 2% Cream -) 1 applic TP DAILY [facility] Last Admin: 06/23/18 10:29 Dose: 1 applic Lactobacillus Acidophilus (Bacid -) 1 tab PO DAILY [facility] Last Admin: 06/23/18 10:28 Dose: 1 tab Lisinopril (Prinivil) 5 mg PO DAILY [facility] Last Admin: 06/22/18 12:02 Dose: Not Given Metoprolol Succinate (Toprol Xl -) 12.5 mg PO DAILY [facility] Last Admin: 06/23/18 10:30 Dose: Not Given Mupirocin (Bactroban 2% Ointment -) 1 applic TP BID [facility] Last Admin: 06/23/18 10:29 Dose: 1 applic Non-Formulary Medication (Aclidinium [place] [Tudorza Pressair]) 1 puff IH AM [facility] A/P Shortness of breath improving Acute on Likely Chronic Hypoxic and Hypercapneic Respiratory Failure Acute COPD Exacerbation Acute on Chronic Systolic Heart Failure Cellulitis - inhaled bronchodilators standing and PRN - O2 to keep SpO2 >90% - continue lasix - monitor urine output, creatinine - antibiotics per ID - DVT prophylaxis - d/c planning Problem List - Problems (1) COPD exacerbation Code(s): J44.1 - CHRONIC OBSTRUCTIVE PULMONARY DISEASE W (ACUTE) EXACERBATION (2) Cellulitis Code(s): L03.90 - CELLULITIS, UNSPECIFIED Qualifiers: Qualified Code(s): L03.119 - Cellulitis of unspecified part of limb (3) Congestive heart failure Code(s): I50.9 - HEART FAILURE, UNSPECIFIED (4) Hypoxia Code(s): R09.02 - HYPOXEMIA (5) Tobacco abuse Code(s): Z72.0 - TOBACCO USE
--- NOTE | 2018-06-23 11:44 | PN ---
Progress Note (short form) - Note Progress Note: s: no cp sob palps dizzy o: Vital Signs Period Temp Pulse Resp BP Sys/Maldonado Pulse Ox Last 24 Hr 97.5 F-98.2 F 68-96 18-18 98-126/48-64 93 nad no jvd rrr s1s2 no mrg cta bl nl eff aaox3 chronic venous stasis changes of legs b/l with open wounds and erythema, nonpit edema abd nt nd pos bs no jaundice diaphoresis Current Medications Generic Name Dose Route Start Last Admin Trade Name Freq PRN Reason Stop Dose Admin Aspirin 81 mg 06/16/18 15:45 06/23/18 10:28 Asa - PO 81 mg DAILY ROSE Administration Atorvastatin Calcium 40 mg 06/16/18 22:00 06/22/18 21:04 Lipitor - PO 40 mg HS ROSE Administration Budesonide/Formoterol Fumarate 2 puff 06/17/18 22:00 06/23/18 10:32 Symbicort 160/4.5mcg - IH 2 puff BID ROSE Administration Furosemide 40 mg 06/18/18 10:00 06/22/18 12:03 Lasix - PO Not Given DAILY ROSE Gabapentin 100 mg 06/17/18 22:00 06/23/18 05:40 Neurontin - PO 100 mg TID ROSE Administration Heparin Sodium (Porcine) 5,000 unit 06/17/18 22:00 06/23/18 05:40 Heparin - SQ 5,000 unit TID ROSE Administration Ceftriaxone Sodium 2 gm/ 100 mls @ 200 mls/hr 06/18/18 15:00 06/23/18 10:28 Dextrose IVPB 200 mls/hr DAILY ROSE Administration Protocol Sodium Chloride 1,000 mls @ 100 mls/hr 06/23/18 09:30 06/23/18 10:25 Normal Saline - IV 06/23/18 14:30 100 mls/hr ASDIR ROSE Administration Ketoconazole 1 applic 06/16/18 16:33 06/23/18 10:29 Nizoral 2% Cream - TP 1 applic DAILY ROSE Administration Lactobacillus Acidophilus 1 tab 06/18/18 10:00 06/23/18 10:28 Bacid - PO 1 tab DAILY ROSE Administration Lisinopril 5 mg 06/18/18 10:00 06/22/18 12:02 Prinivil PO Not Given DAILY ROSE Metoprolol Succinate 12.5 mg 06/23/18 09:55 06/23/18 10:30 Toprol Xl - PO Not Given DAILY [facility] Mupirocin 1 applic 06/17/18 22:00 06/23/18 10:29 Bactroban 2% Ointment - TP 1 applic BID [facility] Administration Non-Formulary Medication 1 puff 06/18/18 07:00 Aclidinium [place] [Tudorza Pressair] IH AM [facility] CBC, BMP 06/22/18 06:00 06/23/18 05:55 cta chest: no pe, no chf ecg: sinus tachy, nl intervals, no ischemic changes echo 06/2015: lvef 35-40, global hk, mild tr, nl rvsp echo 06/2018: lvef 25-30, global hk, rv tds, no sig valve path a/p: 72 f hx syst chf, hld, copd, htn, here with chronic non healing leg wounds. le edema/venous insuff/cellulitis/ulcers: -cont abx per ID -lasix on hold for julius chronic syst chf: -no signs pulm edema or acute chf -cont po lasix for now -cont toprol, lisinopril hld: -cont statin htn: -cont home meds
[2018-06-23] MEDS: ATORVASTATIN CA 40 MG TABLET (FP) PO SCH (21:11)
[2018-06-24] MEDS: MUPIROCIN 2% TOPICAL OINTMENT 22 GM TUBE TP SCH ×2 (01:05→10:36)
[2018-06-24] MEDS: GABAPENTIN 100 MG CAPSULE (FP) PO SCH (05:41)
[2018-06-24] MEDS: HEPARIN NA (PORCINE) 5,000 UNITS/ML 1ML VIAL SQ SCH (05:41)
[2018-06-24 07:54] LABS: ANION GAP 1 MMOL/L (8-16); BLOOD UREA NITROGEN 22 mg/dL (7-18); CALCIUM 8.5 mg/dL (8.5-10.1); CHLORIDE 100 mmol/L (98-107); CO2 38 mmol/L (21-32); CREATININE 1.3 mg/dL (0.55-1.3); GLUCOSE,RANDOM 85 mg/dL (74-106); POTASSIUM 4.4 mmol/L (3.5-5.1); SODIUM 139 mmol/L (136-145)
[2018-06-24] MEDS ORDERED: DEXTROSE 5%-WATER 100 ML IVPB ONE (10:28)
[2018-06-24] MEDS ORDERED: PT OWN MED DRAWER 7, Y5N ONE (10:28)
[2018-06-24] MEDS: LACTOBACILLUS ACIDOPHILUS 1 TABLET PO SCH (10:30)
[2018-06-24] MEDS: metoPROLOL SUCCINATE 25 MG TAB.SR.24H (FP) PO SCH (10:30)
[2018-06-24] MEDS: TIOTROPIUM BROMIDE 2.5 MCG (SPIRIVA) RESPIMAT INHALER IH SCH ×2 (10:31→11:05)
[2018-06-24] MEDS: ASPIRIN 81 MG CHEWABLE TABLETS PO SCH (10:32)
[2018-06-24] MEDS: CEFTRIAXONE 2 GM in DEXTROSE 5%-WATER 100 ML IVPB SCH (10:33)
[2018-06-24] MEDS: BUDESONIDE/FORMETEROL FUMARATE 160/4.5 mcg INHALER IH SCH (10:36)
[2018-06-24] MEDS: KETOCONOZOLE 2% TOPICAL CREAM 15 GM TUBE TP SCH (10:37)
--- NOTE | 2018-06-24 11:10 | PN ---
Progress Note (short form) - Note Progress Note: s: no cp sob palps dizzy o: Vital Signs Period Temp Pulse Resp BP Sys/Maldonado Pulse Ox Last 24 Hr 97.9 F-98.6 F 60-76 18-20 102-118/42-62 92 nad no jvd rrr s1s2 no mrg cta bl nl eff aaox3 chronic venous stasis changes of legs b/l with open wounds and erythema, nonpit edema abd nt nd pos bs no jaundice diaphoresis Current Medications Generic Name Dose Route Start Last Admin Trade Name Freq PRN Reason Stop Dose Admin Aspirin 81 mg 06/16/18 15:45 06/24/18 10:32 Asa - PO 81 mg DAILY ROSE Administration Atorvastatin Calcium 40 mg 06/16/18 22:00 06/23/18 21:11 Lipitor - PO 40 mg HS ROSE Administration Budesonide/Formoterol Fumarate 2 puff 06/17/18 22:00 06/24/18 10:36 Symbicort 160/4.5mcg - IH 2 puff BID ROSE Administration Furosemide 40 mg 06/18/18 10:00 06/22/18 12:03 Lasix - PO Not Given DAILY ROSE Gabapentin 100 mg 06/17/18 22:00 06/24/18 05:41 Neurontin - PO 100 mg TID ROSE Administration Heparin Sodium (Porcine) 5,000 unit 06/17/18 22:00 06/24/18 05:41 Heparin - SQ 5,000 unit TID ROSE Administration Ceftriaxone Sodium 2 gm/ 100 mls @ 200 mls/hr 06/18/18 15:00 06/24/18 10:33 Dextrose IVPB 200 mls/hr DAILY ROSE Administration Protocol Ketoconazole 1 applic 06/16/18 16:33 06/24/18 10:37 Nizoral 2% Cream - TP 1 applic DAILY ROSE Administration Lactobacillus Acidophilus 1 tab 06/18/18 10:00 06/24/18 10:30 Bacid - PO 1 tab DAILY ROSE Administration Lisinopril 5 mg 06/18/18 10:00 06/22/18 12:02 Prinivil PO Not Given DAILY ROSE Metoprolol Succinate 12.5 mg 06/23/18 09:55 06/24/18 10:30 Toprol Xl - PO 12.5 mg DAILY ROSE Administration Mupirocin 1 applic 06/17/18 22:00 06/24/18 10:36 Bactroban 2% Ointment - TP 1 applic BID ROSE Administration Tiotropium [place] 2 puff 06/24/18 10:00 06/24/18 11:05 Spiriva Respimat IH Not Given DAILY ROSE CBC, BMP 06/22/18 06:00 06/24/18 06:00 cta chest: no pe, no chf ecg: sinus tachy, nl intervals, no ischemic changes echo 06/2015: lvef 35-40, global hk, mild tr, nl rvsp echo 06/2018: lvef 25-30, global hk, rv tds, no sig valve path a/p: 72 f hx syst chf, hld, copd, htn, here with chronic non healing leg wounds. le edema/venous insuff/cellulitis/ulcers: -cont abx per ID -lasix on hold for julius-->cr improved today chronic syst chf: -no signs pulm edema or acute chf -cont toprol, lisinopril -lasix on hold for julius-->cr improved today hld: -cont statin htn: -cont home meds
--- NOTE | 2018-06-24 11:51 | PN ---
Progress Note (short form) - Note Progress Note: Surgery Asked to see patient again for chronic venous stasis ulcers. Vascular has signed off on patient earlier this week and the resident states there are no new or acute changed in the patient's status. Patient seen and examined at bedside with no complaints. Vital Signs Temp 98.6 F 06/24/18 08:54 Pulse 60 06/24/18 08:54 Resp 18 06/24/18 08:54 BP 116/55 L 06/24/18 08:54 Pulse Ox 92 L 06/23/18 21:00 Intake & Output 06/23/18 06/23/18 06/24/18 11:59 23:59 11:59 Intake Total 800 Balance 800 Intake: IV 500 Normal Saline - 1,000 ml 500 @ 100 mls/hr IV ASDIR ROSE Rx#:[id number] Oral 300 Other: Voiding Method Bedpan Incontinent Bedpan # Unmeasured Voids Void 1 1 1 Bowel Movement Yes Yes # Bowel Movements 1 1 CBC, BMP 06/22/18 06:00 06/24/18 06:00 PE: A&Ox3, NAD Unlabored resp on RA LOWER EXTREMITIES, exam unchanged from previous visit: B/L Le's with 1+ pitting edema to knees, +wrinkling of skin b/l indicating prior edema. +hyperkeratosis b /l. R leg with large (8x8cm) ulceration with clean bleeding base, fibrinous exudate seen, no foul smell or d/c, LLE with small superficial ulcer at lateral aspect of calf with dried blood. B/L les with moderate erythema. No foul odor from ulcers. No palpable fluctance in b/l le's. B/L toes with overgrown toenails and severe onychomycosis. Problem List - Problems (1) Venous stasis dermatitis of both lower extremities Assessment/Plan: B/L Les with edema, appears to be improving. + cellulitis and superficial venous stasis ulcers. No indication for vascular intervention -Continue IV abx -Agree with Topical Bactroban to ulcers, wrap with kerlix -Elevate b/l le's above level of heart while at rest -Discussed compression therapy with pt once cellulitis has resolved and continuing forward upon going home for prevention of further ulcers, information provided regarding where to purchase compression socks/other options for compression therapy. - F/u with Dr Nevarez in wound care clinic. Code(s): I83.11 - VARICOSE VEINS OF RIGHT LOWER EXTREMITY WITH INFLAMMATION; I83.12 - VARICOSE VEINS OF LEFT LOWER EXTREMITY WITH INFLAMMATION
--- NOTE | 2018-06-24 12:41 | DS ---
Physical Exam: SUBJECTIVE: Patient seen and examined at bedside this morning. Patient denies acute complaints today. She denies subjective fevers, chills, shortness of breath, chest pain, palpitations, abdominal pain, nausea, vomiting. OBJECTIVE: Vital Signs Period Temp Pulse Resp BP Sys/Maldonado Pulse Ox Last 24 Hr 97.9 F-98.6 F 60-76 18-20 102-118/42-62 92-92 PHYSICAL EXAM GENERAL: The patient is awake, alert, and fully oriented, in no acute distress. HEAD: Normocephalic, atraumatic EYES: PERRL, extraocular movements intact, sclera anicteric, conjunctiva clear without injection B/L. ENT: Oropharynx clear without exudates, moist mucous membranes. NECK: Supple without lymphadenopathy. No JVD noted. LUNGS: Good inspiratory effort, and air entry B/L. No wheezes, no crackles auscultated. No accessory muscle use. HEART: Regular rate and rhythm, S1, S2 without murmur, rub or gallop. ABDOMEN: Soft, nontender, nondistended. Normoactive bowel sounds X4 quadrants. No guarding, no rebound tenderness. EXTREMITIES: 2+ radial pusles B/L. Lower extremities 1+ pitting edema, tender with dry flaking skin. 7cm X 7cm ulcer noted along right lateral lower extremity , without purulent discharge. 5cm x 3cm ulcer along left lateral lower extremity , without purulent discharge. Onychomycosis noted B/L. NEUROLOGICAL: Cranial nerves II through XII grossly intact. Normal speech. Strength 5/5 B/L upper extremities, strength 4/5 B/L lower extremities. PSYCH: Normal mood, normal affect upon my encounter today. LABS Laboratory Results - last 24 hr 06/24/18 06:00 Sodium 139 Potassium 4.4 Chloride 100 Carbon Dioxide 38 H Anion Gap 1 L BUN 22 H Creatinine 1.3 Creat Clearance w eGFR 40.49 Random Glucose 85 Calcium 8.5 HOSPITAL COURSE: Date of Admission:06/16/18 Date of Discharge: 06/24/18 Patient is a 72 year old female with history of chronic lower extremity venous stasis, hypertension, COPD, and congestive heart failure presented with complaint of bilateral lower extremity wounds with purulent drainage. Admitted for cellulitis of bilateral lower extremities. Lower extremity arterial doppler showed moderate atherosclerotic disease with abnormal monophasic flow bilateraly. Lower extremity venous duplex showed no evidence of DVT. Patient was evaluated by Infectious Disease, and wound care. Started on Rocephin 2 grams IV daily. Daily wound dressing changes with Bactroban 2% ointment to wounds. Wound cultures right leg grew Klebsiella Oxytoca, Proteus Vulgaris, Enterococcus Avium, Diphtheroid/ Corynebacterium. Wound cultures left leg grew Klebsiella Oxytoca, Alpha hemolytic Streptococcus, Diphtheroid/ Corynebacterium. COPD managed with Spiriva (substituted for Tudorza), Symbicort, Albuterol nebulizers. Patient was placed on nasal canula 2L, increased to 4L to maintain oxygen saturation greater than 90%. Cardiac ECHO showed: Severely reduced EF = 25-20%, with LV hypokinesis. Atorvastatin was initiated, and subsequently held due to transaminitis. Transaminitis improved, and Atorvastatin reinstated. Patient's creatinine was noted rising, and home Lasix, Lisinopril held. Patient admitted poor compliance with home Lasix dose. Patient was gently hydrated, and Creatinine significantly improved. Home Lisinipril reinstated. Home Lasix dose lowered to 20mg daily. Discussed importance of medication compliance. Patient was evaluated by physical therapist with recommendation for outpatient rehab. Patient discharged to SNF with new medications: Aspirin 81mg daily Lasix dose of 20mg daily, Atorvastatin 40mg daily. Ceftin 250mg PO Q12H for 5 days, with Bactroban ointment prior to daily dressing changes. Ciclopirox for onychomycosis. Follow up with primary care physician, infectious disease, wound care, podiatry. Patient to continue home oxygen to maintain oxygen saturation greater than 90%. Minutes to complete discharge: 45 Discharge Summary Reason For Visit: CELLULITIS Current Active Problems Acute on chronic respiratory failure with hypoxia and hypercapnia (Acute) Cellulitis (Acute) Condition: Stable - Instructions Diet, Activity, Other Instructions: You were admitted to hospital for swelling and ulcers of your legs. You were evaluated by the infectious disease physician, wound care physician, and tablet repair, and were treated with antibiotics and antifungal medications. You are being discharged to [facility] for rehab. Continue taking your home medications as directed. You will need to change your wound dressings daily. Apply bactroban ointment to the wounds before wrapping with gauze bandage. Continue taking antibiotic Ceftin 250mg every 12 hours for the next 5 days. You will begin using Ciclopirox to treat fungal infection of your toenails. Your Lasix home dose has been changed to 20mg daily. Make sure to take this medication daily. Begin taking Aspirin 81mg daily Begin taking Atorvastatin 40mg daily. Inform your physician if you experience any muscle aches. Follow up with your primary care physician for a blood test (CBC, CMP, LFTs) within one week after hospital discharge. You will follow up with your primary care physician within two -three days of discharge Follow up with the infectious disease physician Dr. Santiago within one week of discharge. Follow up with wound care, vascular surgeon Dr. Nevarez within one week of discharge. Follow up with the tablet repair Dr. Alvarado within one week of discharge. Return to the nearest Emergency Department if you experience worsening symptoms , fevers, chills, shortness of breath, chest pain, palpitations, abdominal pain , nausea, vomiting, increased drainage or bleeding from your lower extremities wounds. CABRINI INSTRUCTIONS Change wound dressings daily. Apply bactroban ointment to the wounds before wrapping with gauze bandage. Elevate legs when at rest. Continue physical therapy daily. Patient to follow up with Wound Care (Dr. Nevarez), Infectious Disease (Dr. Santiago) , and [employer]inter (Dr. Alvarado) within one week after hospital discharge. Referral has been provided. Patient to follow up with primary care physician within two- three days after discharge. Ceftin 250mg PO every 12 hours for the next 5 days. Begin Ciclopirox for Onychomycosis. Apply Ketoconazole ointment to bilateral lower extremities Patient will require home oxygen. Currently saturating well on 4L nasal canula. Maintain oxygen saturation greater than 90% Referrals: Kai Santiago MD [Staff Physician] - Sohail Thomas MD [Primary Care Provider] - Maximus Alvarado DPM [Staff Physician] - Abdullahi Nevarez MD [Non Staff, Medical] - Disposition: LONG-TERM FACILITY - Home Medications Comprehensive Discharge Medication List: Ambulatory Orders Lisinopril [Prinivil] 5 mg PO DAILY #30 tablet 07/10/15 Albuterol 0.083% Nebulizer Jolie [Ventolin 0.083% Nebulizer Soln -] 1 neb NEB Q6H PRN #30 vial 06/17/16 Metoprolol Succinate 25 mg PO DAILY 06/15/18 Cefuroxime Axetil [Ceftin -] 250 mg PO Q12H 5 Days #10 tablet 06/21/18 Ciclopirox/Urea/Camph/Men/Euc [Ciclopirox 8% Treatment Kit] 34.6 ml TP ASDIR #1 solution 06/21/18 Mupirocin Ointment [Bactroban 2% Ointment -] 1 applic TP Q12H #1 tube 06/21/18 Aspirin [ASA -] 81 mg PO DAILY tab.chew 06/24/18 Atorvastatin Ca [Lipitor] 40 mg PO HS tablet 06/24/18 Furosemide [Lasix] 20 mg PO DAILY 28 Days #28 tablet 06/24/18 Gabapentin [Neurontin -] 100 mg PO TID capsule 06/24/18 Ketoconozole 2% Cream [Nizoral 2% Cream -] 1 applic TP DAILY tube 06/24/18 This patient is new to me today: No Emergency Visit: Yes ED Registration Date: 06/16/18 Care time: The patient presented to the Emergency Department on the above date and was hospitalized for further evaluation of their emergent condition. Critical Care patient: No - Discharge Referral Referred to [facility] No
[2018-06-24 13:11] VITALS: BP 117/58; PULSE 62; TEMP 98.1
--- NOTE | 2018-06-24 15:01 | PN ---
Teaching Attending Note Name of Resident: Tesfaye Gomez ATTENDING PHYSICIAN STATEMENT I saw and evaluated the patient. I reviewed the resident's note and discussed the case with the resident. I agree with the resident's findings and plan as documented. SUBJECTIVE: Feels well. Comfortable. No SOB/cough/sputum/CP. OBJECTIVE: Afebrile, Hemodynamically Stable. SpO2 92 % on 3L O2 via NC. Last Vital Signs Temp Pulse Resp BP Pulse Ox 98.1 F 62 18 117/58 L 92 L 06/24/18 13:10 06/24/18 13:10 06/24/18 13:10 06/24/18 13:10 06/24/18 10:00 HEENT - Atraumatic. Normocephalic. Heart - S1, S2, RRR Lungs - decreased air entry at bases. No crackles/wheeze. Abdomen - Soft, non-tender. Bowel Sounds normal. Extremities - Bilateral chronic venous stasis skin changes with b/l LE ulcers, thickened yellow toe nails. Extremities neurovascularly intact Laboratory Results - last 24 hr 06/24/18 06:00 Sodium 139 Potassium 4.4 Chloride 100 Carbon Dioxide 38 H Anion Gap 1 L BUN 22 H Creatinine 1.3 Creat Clearance w eGFR 40.49 Random Glucose 85 Calcium 8.5 ASSESSMENT AND PLAN: 72 year old female with a history of HTN, HLD, Chronic Venous Stasis, Chronic systolic heart failure, Hypertension, Hyperlipidemia, COPD who presented with pain and chronic non-healing ulcers of both legs. 1. Bilateral LE Cellulitis/Infected venous stasis ulcers of bilateral lower extremities Venous dopplers show no evidence of DVT Wound Cx polymicrobial including Klebsiella and Diphtheroid/Corynebacterium. Treated with IV Ceftriaxone, topical Bactroban to ulcers, topical ketoconazole to feet For switch to Ceftin on discharge. Arterial duplex shows bilateral moderate atherosclerotic disease with abnormal flow - Vascular Surgery re-evaluated and recommends out-patient follow up with Dr. Nevarez. Afebrile/Hemodynamically Stable. Ongoing Wound Care on discharge to SNF. 2. Onychomycosis of toenails with fungal skin infection of feet and legs Continue topical ketoconazole Podiatry consulted - recommend Ciclopirox on discharge to all nails For outpatient podiatry follow up with [employer] Dr. Alvarado. 3. COPD - no evidence of acute exacerbation but patient is hypoxic on room air to 80s on 1-2L via NC - trista progression of COPD to Chronic Respiratory Failure. Continue Symbicort, Tudorza, albuterol as needed. Supplemental O2 on discharge 2-3L via NC. Repeat CXR excludes acute pulmonary process. Pulmonary follow up on discharge. 4. HTN - Continue Toprol XL, Lisinopril 5. Hyperlipidemia - Continue Lipitor 6. Chronic systolic heart failure - Stable Echo shows EF 25-30%, global hypokinesis of LV, trace TR Will resume Lasix, Lisinopril, Toprol XL Evaluated by Cardio - for out-patient monitoring and eval for AICD. No ischemic work-up as in-patient as per Cardiology. 7. JOHN - resolved. Etiology likely over-diuresis. Renal US - no hydronephrosis, mild R renal atrophy. She was receiving Lasix 40mg daily as in-patient but she now admits to poor/irregular Lasix compliance at home not taking it on some days and taking half dose (20mg) on other days. For gentle hydration and resumption of Lasix at lower dose (20mg daily) and Lisinopril now that renal function has normalized. 8. Hypomagnesemia - Resolved s/p repletion. Medically stable for discharge on Ceftin with Cardio, Pulm, Vascular Surgery.
== END 2018-06-24 13:21 | DRG 602 ==
LOC: JER 18:01 → JERBED 23:32 → J5S 06-16 03:25 → J2W 06-16 05:15 → OBSVTOIN 06-16 12:40 → J5S 06-17 17:36
PROVIDERS: ADMIT Internal Medicine
DX: L03.115 Cellulitis of right lower limb (principal); J96.21 Acute and chronic respiratory failure with hypoxia; J96.22 Acute and chronic respiratory failure with hypercapnia; I50.23 Acute on chronic systolic (congestive) heart failure; J44.1 Chronic obstructive pulmonary disease with (acute) exacerbation; N17.9 Acute kidney failure, unspecified; L97.919 Non-pressure chronic ulcer of unspecified part of right lower leg with unspecified severity; L97.929 Non-pressure chronic ulcer of unspecified part of left lower leg with unspecified severity; I83.208 Varicose veins of unspecified lower extremity with both ulcer of other part of lower extremity and inflammation; E87.2 Acidosis; I11.0 Hypertensive heart disease with heart failure; E83.42 Hypomagnesemia; B95.2 Enterococcus as the cause of diseases classified elsewhere; B96.89 Other specified bacterial agents as the cause of diseases classified elsewhere; N18.3 Chronic kidney disease, stage 3 (moderate); L03.116 Cellulitis of left lower limb; I70.209 Unspecified atherosclerosis of native arteries of extremities, unspecified extremity; F17.210 Nicotine dependence, cigarettes, uncomplicated; Z88.1 Allergy status to other antibiotic agents; B35.1 Tinea unguium; I87.8 Other specified disorders of veins; Z88.0 Allergy status to penicillin; E78.5 Hyperlipidemia, unspecified; R91.1 Solitary pulmonary nodule; B96.1 Klebsiella pneumoniae [K. pneumoniae] as the cause of diseases classified elsewhere; B96.4 Proteus (mirabilis) (morganii) as the cause of diseases classified elsewhere
CPT/HCPCS: 36415; 36600; 71045-TC-FY; 71275-TC; 76775-TC; 80048; 80053; 80061; 82803; 82962; 83721; 83735; 83880; 84100; 85025; 85027; 85610; 85651; 85730; 86140; 87040; 87070; 87077; 87186; 87205; 87804; 93005; 93010; 93306-TC; 93925-TC; 93970-TC; 94640; 94761; 97116-GP; 97162-GP; 99283-25; G0378; J1644; J7030